=== PATIENT | female | born 1985 | race Caucasian/White ===

== ENCOUNTER 2022-09-13 12:34 | Outpatient (CLI) | payer OTHER, SELFPAY ==
[2022-09-13 12:59] LABS: Hematocrit 37.7 % (37.0-47.0); Hemoglobin 12.1 g/dL (12.0-15.0); Mean Corpuscular HGB Conc 32.1 g/dl (32-36); Mean Corpuscular Volume 90.4 fl (80-100); Mean Platelet Volume 9.2 fl (7.4-10.4); Platelet Count Result 238 k/mm3 (150-375); Red Blood Count 4.17 M/mm3 (4.2-5.4); Red Cell Distribution Width 14.1 % (11.5-14.5)
== END 2022-09-13 12:35 | disposition home or self-care (01) ==
LOC: ANHSURGERY 12:39
PROVIDERS: Obstetrics & Gynecology; PCP Internal Medicine; Visit Provider Urology
DX: N92.6 Irregular menstruation, unspecified (principal); Z01.818 Encounter for other preprocedural examination
CPT/HCPCS: 36415; 85027; 86850; 86900; 86901

== ENCOUNTER 2022-09-19 00:46 | Day surgery (SDC) | payer OTHER, SELFPAY ==
[2022-09-09 11:10] VITALS: BMI 25.8
--- NOTE | 2022-09-09 11:14 | PC.NURSE ---
Report to the Outpatient Waiting Room, entrance under the green pavilion located off [facility], at time 9:30 on date 09/19/22. Planned Procedure Time: 11:30. Time changes happen often and if your time is changed the preop area will call you the afternoon before. - You and your visitor will be asked to self-screen and do not enter if you have any COVID symptoms. - A mask is optional within the hospital at this time. Patients may have clear liquids (water, carbonated beverages, clear teas, apple juice) until 3 hours prior to surgery (8:30) with a maximum of 20 ounces. - No food from midnight until time of surgery Take the following medications with a SIP of water the morning of surgery: AMOXICILLIN, BUSPIRONE, FLUOXETINE DO NOT STOP ANY OF YOUR OTHER PRESCRIPTION MEDICATIONS PRIOR TO SURGERY EXCEPT THE FOLLOWING Medications to discontinue per physician: VITAMINS/SUPPLEMENTS Date to take last dose: 09/15/22 Please no make-up, nail macedonian, hairspray, perfume, deodorant, or body powder the day of surgery. No jewelry (including any body piercings) or valuables the day of surgery, leave them at home. Please take a shower or bath the night before, or the morning of, surgery with an antibacterial soap. Wear comfortable, loose fitting clothing. - Jewelry must be removed prior to entering the operating room. Rings and piercings that are not removed may be cut off. - The hospital will not accept responsibility for valuables. - Please leave all valuables, including medications, at home the day of surgery. If you are going home after surgery, a licensed customer service driver must drive you home. - NO public transportation without another adult if you receive anesthesia. - We recommend that an adult stay with you for 24 hours following discharge. - We also recommend that you do not drive, make important decision, drink alcoholic beverages, or take any drugs that were not prescribed by your health care provider for at least 24 hours after your discharge time. Follow any additional instructions given to you from your surgeon. If you or anyone in your household have experienced Covid symptoms in the past week, please notify your surgeon or the nurse liaison at the phone number below for possible testing. Telephone instructions given to PT - AMENA MURILLO and asked if any additional questions and then verbalized understanding. Patient advised to call surgeon office or pre surgery nurse liaison [phone] if any additional questions.
--- NOTE | 2022-09-18 16:32 | PM.IMHP ---
H&P: HPI History of Present Illness Date/Time: 09/18/22 16:32 Chief Complaint: ROMERO Narrative: 37 yo with ROMERO. Sling procedure at the time of her Hyst Review of Systems Review of Systems: All systems reviewed & are unremarkable except as noted in HPI and below PMFSH Past Medical History Medical History Acne Anxiety and depression Toxic shock syndrome Vaginal delivery 03/06/09 12/14/10 PTL/PTD/PPROM 9 days in NICU 03/31/15 [facility] 03/31/15 Surgical History Surgical History History of cholecystectomy (~2015) History of dilation and curettage (02/23/17) menometrorrhagia, dysmenorrhea, enlarged uterus, possible adenomyosis History of endometrial ablation (03/09/17) History of tonsillectomy (~2002) Family History Family History Mother Family history of mental disorder Hypertension Family history of hypothyroidism Family history of gastrointestinal disorder Father Family history of heart disease in male family member before age 55 Acute myocardial infarction Family history of diabetes mellitus in first degree relative Sibling Family history of diabetes mellitus in first degree relative Other Family history of allergic disorder Social History Social History Smoking status: Never smoker Alcohol intake: current Drinks per week: 6 Substance use: never Substance use type: does not use Living arrangements: with family Additional living arrangements comments: 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 Gender identity (if verbalized by the patient): Female Sexual Orientation (if Verbalized by the Patient): Straight or Heterosexual Spiritual care concerns: No Meds Home Medications and Allergies Home Medications Medication Instructions Recorded Confirmed Type amoxicillin 500 mg capsule 500 mg PO Q12H 05/04/22 09/09/22 History buspirone 10 mg tablet 10 mg PO BID 05/04/22 09/09/22 History fluoxetine 40 mg capsule 40 mg PO DAILY 05/04/22 09/09/22 History multivitamin with minerals 1 tablet PO DAILY 09/09/22 09/09/22 History (Hair,Skin and Nails tablet) Allergies Allergy/AdvReac Type Severity Reaction Status Date / Time No Known Allergies Allergy Mild Verified 09/09/22 11:10 Exam Narrative: + urethral mobility Assessment and Plan Assessment and plan (1) ROMERO (stress urinary incontinence, female): Code(s): N39.3 - Stress incontinence (female) (male) Status: Acute Assessment and Plan: urethral slin
[2022-09-19] VITALS (11 sets, daily range): BP systolic 105–127; BP diastolic 63–89; PULSE 61–107; RESP 12–16; TEMP 36.1–37.3; O2SAT 95–100
--- NOTE | 2022-09-19 07:16 | WPDHPUPDATE1 ---
History and Physical Update Update Date/Time: 09/19/22 07:16 History and Physical has been reviewed, including an updated exam of the patient. There are NO changes in the patient's condition. Risks, benefits, and alternatives have been discussed and questions answered. Patient agrees to proceed with procedure.
--- NOTE | 2022-09-19 07:47 | PM.IMHP ---
H&P: HPI History of Present Illness Date/Time: 09/19/22 07:47 37-year-old female presents with complaints of irregular heavy vaginal bleeding. She has had an endometrial ablation years ago and this had worked well for her, though she is having increasing bleeding cramping discomfort and desires definitive treatment for this. She has taken Prometrium daily in the interim and has worked reasonably well for her. Also relates significant stress incontinence which Dr. Paez will be correcting with sling procedure after her hysterectomy. Chief Complaint: irregular vaginal bleeding Review of Systems Review of Systems: All systems reviewed & are unremarkable except as noted in HPI and below PMFSH Past Medical History Medical History Acne Anxiety and depression Toxic shock syndrome Vaginal delivery 03/06/09 12/14/10 PTL/PTD/PPROM 9 days in NICU 03/31/15 [facility] 03/31/15 Surgical History Surgical History History of cholecystectomy (~2015) History of dilation and curettage (02/23/17) menometrorrhagia, dysmenorrhea, enlarged uterus, possible adenomyosis History of endometrial ablation (03/09/17) History of tonsillectomy (~2002) Family History Family History Mother Family history of mental disorder Hypertension Family history of hypothyroidism Family history of gastrointestinal disorder Father Family history of heart disease in male family member before age 55 Acute myocardial infarction Family history of diabetes mellitus in first degree relative Sibling Family history of diabetes mellitus in first degree relative Other Family history of allergic disorder Social History Social History Smoking status: Never smoker Alcohol intake: current Drinks per week: 6 Substance use: never Substance use type: does not use Living arrangements: with family Additional living arrangements comments: 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 Gender identity (if verbalized by the patient): Female Sexual Orientation (if Verbalized by the Patient): Straight or Heterosexual Spiritual care concerns: No Meds Home Medications and Allergies Home Medications Medication Instructions Recorded Confirmed Type amoxicillin 500 mg capsule 500 mg PO Q12H 05/04/22 09/09/22 History buspirone 10 mg tablet 10 mg PO BID 05/04/22 09/09/22 History fluoxetine 40 mg capsule 40 mg PO DAILY 05/04/22 09/09/22 History multivitamin with minerals 1 tablet PO DAILY 09/09/22 09/09/22 History (Hair,Skin and Nails tablet) Allergies Allergy/AdvReac Type Severity Reaction Status Date / Time No Known Allergies Allergy Mild Verified 09/09/22 11:10 Exam Const: General: cooperative, healthy appearing and comfortable Resp: Effort & Inspection: normal respiratory effort Auscultation: clear to auscultation bilaterally Cardio: Rate: regular rate Rhythm: regular rhythm GI: Inspection: normal to inspection Auscultation: normal bowel sounds : External Female Exam: normal external appearance Speculum Exam - Vagina: normal appearance of the vagina Speculum Exam - Cervix: normal appearance of the cervix Bimanual exam- vagina & uterus: enlarged ( 8-10 week size) Bimanual Exam- Adnexa, other: normal adnexae Assessment and Plan Assessment and plan (1) Menometrorrhagia: Code(s): N92.1 - Excessive and frequent menstruation with irregular cycle Status: Acute (2) Dysmenorrhea: Code(s): N94.6 - Dysmenorrhea, unspecified Status: Acute (3) History of endometrial ablation: Code(s): Z98.890 - Other specified postprocedural states Status: Acute (4) ROMERO (stress urinary incontinence, female): Code(s): N39.3 - Str
[2022-09-19] MEDS: ACETAMINOPHEN 500 MG TABLET 1000 MG PO (10:10)
[2022-09-19] MEDS: LACTATED RINGERS 1,000 ML 30 ML IV CONT ×2 (10:10→13:46)
[2022-09-19] MEDS: KETOROLAC 15 MG/ML VIAL (*BKC) IV PUSH (11:00)
--- NOTE | 2022-09-19 11:10 | WPDANESEPPF ---
Anes - Initial Pre Proc Eval Procedure: Operation Date: 09/19/22 11:30 Proposed Procedures p Urethral Sling, - Kapil Paez MD s Robotic Assisted Total Laparoscopic Hysterectomy with Bilateral Salpingectomy - Luis Ocampo MD Date/Time: 09/19/22 11:10 Surgeon: Kapil Paez MD Pre Op Diagnosis: stress incont, irr. periods, failed ablation Patient Data Age: 37 Gender: F Height: 1.7 m Weight: 76.6 kg Last Vital Signs Temp 97.9 F 09/19/22 10:29 Pulse 61 09/19/22 10:29 Resp 16 09/19/22 10:29 BP 120/78 09/19/22 10:29 Pulse Ox 100 09/19/22 10:29 O2 Del Method Room Air 09/19/22 10:29 Allergies Allergy/AdvReac Type Severity Reaction Status Date / Time No Known Allergies Allergy Mild Verified 09/19/22 09:47 Home Medications Medication Instructions Recorded Confirmed Type amoxicillin 500 mg capsule 500 mg PO Q12H 05/04/22 09/19/22 History buspirone 10 mg tablet 10 mg PO BID 05/04/22 09/19/22 History fluoxetine 40 mg capsule 40 mg PO DAILY 05/04/22 09/19/22 History multivitamin with minerals 1 tablet PO DAILY 09/09/22 09/19/22 History (Hair,Skin and Nails tablet) Patient hx anesthesia problems: none Family hx anesthesia problems: none Results Review: All pre-operative results and documents have been reviewed as part of the pre-operative evaluation. [facility] Past Medical History Medical History Acne Anxiety and depression Toxic shock syndrome Vaginal delivery 03/06/09 12/14/10 PTL/PTD/PPROM 9 days in NICU 03/31/15 [facility] 03/31/15 Surgical History Surgical History History of cholecystectomy (~2015) History of dilation and curettage (02/23/17) menometrorrhagia, dysmenorrhea, enlarged uterus, possible adenomyosis History of endometrial ablation (03/09/17) History of tonsillectomy (~2002) Family History Family History Mother Family history of mental disorder Hypertension Family history of hypothyroidism Family history of gastrointestinal disorder Father Family history of heart disease in male family member before age 55 Acute myocardial infarction Family history of diabetes mellitus in first degree relative Sibling Family history of diabetes mellitus in first degree relative Other Family history of allergic disorder Social History Social History Smoking status: Never smoker Alcohol intake: current Drinks per week: 6 Substance use: never Substance use type: does not use Living arrangements: with family Additional living arrangements comments: 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 Gender identity (if verbalized by the patient): Female Sexual Orientation (if Verbalized by the Patient): Straight or Heterosexual Spiritual care concerns: No Anes - Eval Final PreProcedure Day of Procedure 09/19/22 11:10 Patient weight: normal Heart: regular rate and rhythm Lungs: clear to auscultation Airway: Mallampati scale class II Neurological: alert and oriented Last oral intake: >/= 8 hours ASA classification: II Emergent: no Anesthetic plan: proceed Anesthesia type and monitoring: general ETT and standard monitoring Results Review: All pre-operative results and documents have been reviewed as part of the pre-operative evaluation. Informed Consent: The patient's anesthetic plan and its attendant risks and benefits were discussed with the patient/family/POA. Questions were solicited and answers provided to the satisfaction of the patient/family/POA.
--- NOTE | 2022-09-19 11:35 | WPDHPUPDATE1 ---
History and Physical Update Update Date/Time: 09/19/22 11:35 History and Physical has been reviewed, including an updated exam of the patient. There are NO changes in the patient's condition. Risks, benefits, and alternatives have been discussed and questions answered. Patient agrees to proceed with procedure.
[2022-09-19] MEDS: ceFAZolin 2 GM/D5W 50 ML 2 GM/50 ML BAG IVPB (11:53)
--- NOTE | 2022-09-19 13:19 | P.OP_ITS ---
Procedure Note - Detailed Date of Procedure 09/19/22 Pre-op Diagnosis 1. Menometrorrhagia 2. Dysmenorrhea 3. Prior/failed endometrial ablation 4. Stress urinary incontinence with urethral hypermobility Post-op Diagnosis Same Procedure Performed 1. Robotic assisted total laparoscopic hysterectomy with bilateral salpingectomy Surgeon Luis Ocampo MD Anesthesia General Findings Mildly enlarged globular uterus. Tubes and ovaries without abnormality. Description of Procedure Patient prepped and draped usual manner for this procedure. Cervical instruments were placed for uterine mobility throughout the case. Attention was then placed to the abdomen with trocar sites marked and placed under direct visualization. Findings were noted as above and surgeon moved to the console. Mesial salpinx bilaterally cauterized and cut and tubes removed without dif ficulty. Utero-ovarian ligaments were cauterized and cut and the round ligament was cauterized and cut and anterior and posterior leaf the broad ligament was incised to skeletonize the uterine vessels. These were then cauterized and cut bilaterally. Once this was undertaken the anterior colpotomy incision was made this was carried circumferentially around the cervix to separate from the vagina. Uterus was delivered into the vagina. Cuff was then closed using V lock suture from the right angle to midline and left angle midline with good approximation hemostasis noted. Irrigation was undertaken there was no bleeding. Osiel was placed empirically on the vaginal cuff. Gas was allowed to escape incisions approximated using 4-0 Monocryl after the trocars removed. At this point Dr. Paez reposition patient and began his portion of the procedure. Estimated Blood Loss 50 Drains No Packing No Pathology Yes Complications No immediate complications Condition Stable Disposition PACU [facility] Billing Surgery - Charge Forward: Surgery Billing
[2022-09-19] MEDS: BUPIVACAINE/EPINEPHRINE 0.25% 50 ML VIAL 20 ML INFILTRATE (13:24)
--- NOTE | 2022-09-19 13:49 | P.OP_ITS ---
Procedure Note - Detailed Date of Procedure 09/19/22 Pre-op Diagnosis Stress incontinence Post-op Diagnosis Same Procedure Performed mid urethral sling cystoscopy Surgeon Kapil Paez MD Anesthesia General Indications This is a female with confirmed stress urinary incontinence. She desires surgical correction. She understands the risks of bleeding, infection, injury to the urinary tract, vaginal mesh extrusion, urinary tract mesh erosion, obstructive voiding requiring a secondary procedure, hip and leg pain, dyspareunia, inability to improve overactive bladder symptoms. She agrees to proceed. Will do this in conjunction with a hysterectomy for dysfunctional uterine bleeding Description of Procedure I entered the room following her hysterectomy. A time-out performed. I re- prepped the patient. I marked out the site of the inner thigh incisions. I anesthetized the skin and made those incisions. I anesthetized the anterior vaginal wall over the mid urethra. I made a 1 cm incision. I dissected out laterally taking great care not to injure the refilled vaginal wall. I passed the helical trocars. First on the left. Then on the right. I did this from the thigh incision towards the vaginal incision. The sling was connected to the trocars and brought out through the thigh incision. I tensioned the sling appropriately. I cut and the plastic sheaths. I then closed the incision with 2 0 Vicryl. On cystoscopy there is no tumors or surgical artifact. Both ureters were seen to excrete clear yellow urine. There was no surgical artifact in the urethra. I cut the excess sling material. Close incisions with glue. She was awakened and transferred to the PACU in stable condition. Implants Urethral sling Estimated Blood Loss 40 Drains No Packing No Pathology None sent Complications No immediate complications Condition Stable Disposition PACU
[2022-09-19] MEDS: fentaNYL CITRATE INJ (*CRX) 100 MCG/2 ML VIAL 25 MCG IV PUSH ×2 (14:16→14:27)
[2022-09-19] MEDS: DEXTROSE 5%/0.45% SOD CHL 1,000 ML 125 ML IV CONT (16:21)
[2022-09-19] MEDS: KETOROLAC 30 MG/ML VIAL (*BKC) IV PUSH (16:21)
[2022-09-19] MEDS: ONDANSETRON INJ 4 MG/2 ML VIAL IV PUSH (16:21)
[2022-09-19] MEDS: MORPHINE SULFATE (*CRX) 4 MG/ML INJ IV PUSH (16:22)
[2022-09-19] MEDS: busPIRone HCL 10 MG TABLET PO (17:05)
[2022-09-19] MEDS: AMOXICILLIN 500 MG CAPSULE PO (20:36)
[2022-09-19] MEDS: HYDROcodone/acetaminophen (*CRX) 5-325 MG TABLET 1 TAB PO ×2 (20:36→23:15)
[2022-09-19] MEDS: SIMETHICONE 80 MG TAB.CHEW PO ×2 (20:36→23:14)
[2022-09-19] MEDS: IBUPROFEN 600 MG TABLET PO (23:14)
[2022-09-20] MEDS: HYDROcodone/acetaminophen (*CRX) 5-325 MG TABLET 1 TAB PO ×2 (03:44→08:08)
[2022-09-20] MEDS: SIMETHICONE 80 MG TAB.CHEW PO ×2 (03:44→08:08)
[2022-09-20 03:45] VITALS: BP 113/76; PULSE 66; RESP 16; TEMP 37; O2SAT 98
[2022-09-20 05:07] LABS: Basophils Percent Auto 0.4 % (0.2-1.2); Eosinophils Absolute Auto 0.1 K/mm3 (0-0.3); Eosinophils Percent Auto 0.5 % (0-4.4); Hematocrit 34.3 % (37.0-47.0); Hemoglobin 11.3 g/dL (12.0-15.0); Immature Granulocyte Absolute 0.03 K/mm3 (0.00-0.031); Immature Granulocyte Percent A 0.3 % (0-0.5); Lymphocytes Absolute Auto 2.63 K/mm3 (0.9-3.2); Lymphocytes Percent Auto 23.7 % (18.3-44.2); Mean Corpuscular HGB Conc 32.9 g/dl (32-36); Mean Corpuscular Volume 87.9 fl (80-100); Mean Platelet Volume 9.7 fl (7.4-10.4); Monocytes Absolute Auto 0.8 K/mm3 (0.1-0.6); Monocytes Percent Auto 7.4 % (2.6-8.5); Neutrophils Absolute Auto 7.5 K/mm3 (1.3-6.7); Neutrophils Percent Auto 67.7 % (45.5-73.1); Platelet Count Result 193 k/mm3 (150-375); Red Cell Distribution Width 14.2 % (11.5-14.5); White Blood Count 11.1 K/mm3 (4.5-10.0)
[2022-09-20] MEDS: IBUPROFEN 600 MG TABLET PO (08:08)
[2022-09-20] MEDS: FLUoxetine HCL 20 MG CAPSULE 40 MG PO (08:09)
[2022-09-20] MEDS: THERAPEUTIC MULTIVITAMINS/MINERALS TAB (*BKC) 1 TABLET PO (08:09)
[2022-09-20] MEDS: busPIRone HCL 10 MG TABLET PO (08:09)
[2022-09-20] MEDS: AMOXICILLIN 500 MG CAPSULE PO (08:09)
[2022-09-20 08:50] VITALS: BP 105/74; PULSE 65; RESP 16; TEMP 36.8; O2SAT 99
[2022-09-20 09:00] VITALS: PULSE 66; RESP 16; O2SAT 98
--- NOTE | 2022-09-20 10:12 | WPDANESPN ---
Anes - Prog Note Post-Op Date/Time: 09/20/22 10:12 Cardiovascular status: normal Respiratory status: normal Airway patency: baseline Mental status: baseline Post-Op hydration status: normal Vital Signs: Last Vital Signs Temp 37.0 C 09/20/22 03:45 Pulse 66 09/20/22 09:00 Resp 16 09/20/22 09:00 BP 113/76 09/20/22 03:45 Pulse Ox 98 09/20/22 09:00 O2 Del Method Room Air 09/20/22 09:00 O2 Flow Rate 8 09/19/22 14:10 Pain Score (VAS): 06/10 I/O: Intake & Output 09/19/22 09/20/22 09/20/22 23:59 07:59 15:59 Intake Total 500 Output Total 700 300 450 Balance -200 -300 -450 Laboratory Tests 09/20/22 03:49 09/20/22 03:49 WBC 11.1 H RBC 3.90 L Hgb 11.3 L Hct 34.3 L MCV 87.9 MCH 29.0 MCHC 32.9 RDW 14.2 Plt Count 193 MPV 9.7 Immature Gran % (Auto) 0.3 Neut % (Auto) 67.7 Lymph % (Auto) 23.7 [place] % (Auto) 7.4 Eos % (Auto) 0.5 Baso % (Auto) 0.4 Lymph # (Auto) 2.63 [place] # (Auto) 0.8 H Eos # (Auto) 0.1 Baso # (Auto) 0.0 Abs Immat Gran (auto) 0.03 Absolute Neuts (auto) 7.5 H Absolute Nucleated RBC 0.0 Nucleated RBC % 0.0 Post-procedural complaints: none Patient Feedback: Patient satisfied with anesthetic care.
[2022-09-20] MEDS: HYDROcodone/acetaminophen (*CRX) 10-325 MG TABLET 1 TAB PO (11:15)
== END 2022-09-20 11:38 | disposition home or self-care (01) ==
LOC: ANHSURGERY 09:28 → ANHOB2 09-20 10:49
PROVIDERS: Obstetrics & Gynecology; PCP Internal Medicine; Visit Provider Urology
PROC: (CPT 57288; principal; 2022-09-19 11:30)
PROC: (CPT 58554; 2022-09-19 11:30)
DX: N39.3 Stress incontinence (female) (male) (principal); N92.1 Excessive and frequent menstruation with irregular cycle
CPT/HCPCS: 58554; 57288; S2900; 36415; 85025; 85027; 86850; 86900; 86901; 88307; A9270; C1771; G0378; G0379; J0690; J1100; J1170; J1885; J2250; J2270; J2405; J3010; J7120

== ENCOUNTER 2022-11-25 15:42 | Outpatient (CLI) | payer OTHER, SELFPAY ==
--- NOTE | ~2022-11-25 | XR_ITS ---
XR chest 2V DATE: 11/25/2022 16:02 INDICATION: Upper left-sided chest pain and shortness of breath for 4 days TECHNIQUE: PA and lateral views COMPARISON: 10/13/2017 two-view chest FINDINGS: Normal heart size. No hilar or mediastinal enlargement. No pulmonary infiltrate or consolid ation, pleural effusion or pulmonary vascular congestion or pneumothorax is detected. Surgical clips overlie the upper abdomen anteriorly on the lateral view, likely due to cholecystectom y. Included skeletal structures are unremarkable other than thoracic and lumbar scoliosis. IMPRESSION: No active cardiopulmonary disease Reviewed, dictated and finalized at location B.
--- NOTE | ~2022-11-25 | CT_ITS ---
EXAMINATION: CTA chest PE protocol DATE: 11/25/2022 17:19 CDT INDICATION: Left-sided chest pain. Elevated d-dimer. TECHNIQUE: Computed tomographic angiography (CTA) of the chest was performed with 100 mL Omnipaque-35 0 intravenous contrast. The dose-length product was 273.30 mGy-cm. Maximum intensity projection 3D-re constructions of the aorta and other arteries were constructed by the technologist on a separate work station. Automated exposure control and iterative reconstruction technique were employed. COMPARISON: Chest x-ray dated 11/25/2022. FINDINGS: Study is technically adequate without evidence for pulmonary embolism. No significant pleur al or pericardial effusion. Heart size normal. No thoracic lymphadenopathy. Upper abdomen is unremark able. No focal airspace consolidation. No suspicious pulmonary nodules or masses. No endobronchial le sions. No pneumothorax. No acute osseous abnormality. IMPRESSION: 1. No acute cardiopulmonary disease. Reviewed, dictated and finalized at location A.
[2022-11-25 15:58] LABS: Basophils Absolute Auto 0.05 K/mm3 (0.00-0.10); Basophils Percent Auto 0.7 % (0.0-1.0); Eosinophils Absolute Auto 0.26 K/mm3 (0.02-0.50); Eosinophils Percent Auto 3.5 % (1.0-6.0); Hematocrit 38.7 % (35.0-49.0); Hemoglobin 12.8 g/dL (12.0-15.0); Immature Granulocyte Absolute 0.01 K/mm3 (0.00-0.00); Immature Granulocyte Percent A 0.1 % (0.0-0.0); Lymphocytes Absolute Auto 2.44 K/mm3 (1.10-4.50); Lymphocytes Percent Auto 32.4 % (18.0-42.0); Mean Corpuscular HGB Conc 33.1 g/dL (32.0-36.0); Mean Corpuscular Hemoglobin 29.6 pg (27.0-31.0); Mean Corpuscular Volume 89.6 fL (78.0-102.0); Mean Platelet Volume 8.9 fl (9.2-11.8); Monocytes Absolute Auto 0.46 K/mm3 (0.10-0.90); Monocytes Percent Auto 6.1 % (2.0-11.0); Neutrophils Absolute Auto 4.3 K/mm3 (1.7-7.2); Neutrophils Percent Auto 57.2 % (50.0-70.0); Platelet Count Result 302 K/mm3 (150-420); Red Blood Count 4.32 M/mm3 (4.20-5.40); Red Cell Distribution Width 13.5 % (11.6-14.4); White Blood Count 7.5 K/mm3 (4.8-10.8)
[2022-11-25 16:17] LABS: D Dimer 0.93 mg/L (0.19-0.50)
[2022-11-25 16:24] LABS: Alanine Aminotransferase 24 U/L (14-59); Albumin Level 3.7 g/dL (3.4-5.0); Alkaline Phosphatase 69 U/L (46-116); Anion Gap 5 mmol/L (8-16); Aspartate Amino Transferase 11 U/L (15-37); Bilirubin,Total 0.6 mg/dL (0.00-1.00); Blood Urea Nitrogen 17 mg/dL (7-18); Calcium 8.8 mg/dL (8.5-10.1); Carbon Dioxide 30 mmol/L (21-32); Chloride 106 mmol/L (98-108); Creatine Kinase 129 U/L (26-192); Estimated Glomerular Filt Rate > 60; Glucose 92 mg/dL (70-99); Osmolality Calculated 293 mOsm/kg (285-295); Potassium 3.7 mmol/L (3.5-5.1); Sodium 141 mmol/L (136-145); Total Protein 6.6 g/dL (6.4-8.2)
[2022-11-25 16:32] LABS: CRP < 0.5 mg/dL (0.0-0.9)
== END 2022-11-25 15:43 | disposition home or self-care (01) ==
PROVIDERS: PCP Internal Medicine; Visit Provider Nurse Practitioner Family
DX: R06.02 Shortness of breath (principal); R07.9 Chest pain, unspecified
CPT/HCPCS: 36415; 71046; 71275; 80053; 82550; 82553; 84484; 85025; 85380; 86140; Q9967

== ENCOUNTER 2023-03-23 02:41 | Emergency (ER) | payer OTHER, SELFPAY ==
[2023-03-23] VITALS (44 sets, daily range): BP systolic 85–116; BP diastolic 49–80; PULSE 73–103; RESP 12–20; TEMP 36.3–36.6; O2SAT 96–100
--- NOTE | ~2023-03-23 | XR_ITS ---
EXAMINATION: XR chest 1V portable INDICATION: Overdose, COVID 19 positive TECHNIQUE: Portable AP chest at 0658 hours COMPARISON: 11/25/2022 FINDINGS: The lungs are free of acute opacities. No pleural effusion or pneumothorax. The cardiomedia stinal silhouette is normal. IMPRESSION: 1. No acute cardiopulmonary abnormality. Reviewed, dictated and finalized at location F. 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
--- NOTE | ~2023-03-23 | CT_ITS ---
EXAMINATION: CT brain wo con INDICATION: Overdose COMPARISON: None TECHNIQUE: Standard unenhanced head CT. The dose-length product (DLP) was 681.00 mGy-cm. The mA was a djusted according to patient size. Iterative reconstruction technique was employed. FINDINGS: No intracranial hemorrhage, acute infarction, or abnormal mass lesion. The ventricles are n ormal. No abnormal mass effect or midline shift. The grubbs-white matter differentiation is normal. The basal cisterns are patent. The orbits are normal. There is mild mucosal thickening of the paranasal sinuses. IMPRESSION: 1. No acute intracranial abnormality. Reviewed, dictated and finalized at location F. COLLECTOR
--- NOTE | 2023-03-23 02:52 | ED.PSYCH ---
HPI - Psych General Chief Complaint: Overdose <Tra Fields MD - Last Filed: 03/23/23 07:07> Stated Complaint: ingestion <Tra Fields MD - Last Filed: 03/23/23 07:07> Time Seen by Provider: 03/23/23 02:52 <Tra Fields MD - Last Filed: 03/23/23 07:07> Source: patient <Tra Fields MD - Last Filed: 03/23/23 07:07> Mode of arrival: ambulatory <Tra Fields MD - Last Filed: 03/23/23 07:07> Limitations: no limitations <Tra Fields MD - Last Filed: 03/23/23 07:07> History of Present Illness HPI Narrative: 37 female history of depression got into an argument with her and subsequently ingested handful of pain medications / [place] at around 2:00 a.m. She ingested and unknown amount of alcohol She called her mother who brought her to the ER. The patient is tearful. She is drowsy. She denies any other complaints. no prior history of suicidal attempts. No history of drug or alcohol use. <Tra Fields MD - Last Filed: 03/23/23 07:07> MD complaint: feels depressed <Tra Fields MD - Last Filed: 03/23/23 07:07> Onset (ago): hour(s) ( 1 hour ago) <Tra Fields MD - Last Filed: 03/23/23 07:07> History of same: No <Tra Fields MD - Last Filed: 03/23/23 07:07> Related Data Home Medications: Home Medications Medication Instructions Recorded Confirmed buspirone 10 mg tablet 10 mg PO BID 05/04/22 03/23/23 fluoxetine 40 mg capsule (Prozac) 40 mg PO DAILY 05/04/22 03/23/23 multivitamin with minerals 1 tablet PO DAILY 09/09/22 03/23/23 (Hair,Skin and Nails tablet) <Tra Fields MD - Last Filed: 03/23/23 07:07> Allergies/Adverse Reactions: Allergies Allergy/AdvReac Type Severity Reaction Status Date / Time No Known Allergies Allergy Mild Verified 11/04/22 09:30 <Tra Fields MD - Last Filed: 03/23/23 07:07> Review of Systems Review of Systems: The patient is drowsy and is not able to answer questions. <Tra Fields MD - Last Filed: 03/23/23 07:07> [facility] Past Medical History Medical History: Medical History Acne Anxiety and depression Toxic shock syndrome Vaginal delivery 03/06/09 12/14/10 PTL/PTD/PPROM 9 days in NICU 03/31/15 [facility] 03/31/15 <Tra Fields MD - Last Filed: 03/23/23 07:07> Surgical History Surgical History: Surgical History History of bladder suspension procedure (09/19/22) mid urethral sling/ cystoscopy with Dr. Paez History of cholecystectomy (~2015) History of dilation and curettage (02/23/17) menometrorrhagia, dysmenorrhea, enlarged uterus, possible adenomyosis History of endometrial ablation (03/09/17) History of robot-assisted laparoscopic hysterectomy (09/19/22) Robotic assisted total laparoscopic hysterectomy with bilateral salpingectomy History of tonsillectomy (~2002) <Tra Fields MD - Last Filed: 03/23/23 07:07> Family History Family History: Family History Mother Family history of mental disorder Hypertension Family history of hypothyroidism Family history of gastrointestinal disorder Father Family history of heart disease in male family member before age 55 Acute myocardial infarction Family history of diabetes mellitus in first degree relative Sibling Family history of diabetes mellitus in first degree relative Other Family history of allergic disorder <Tra Fields MD - Last Filed: 03/23/23 07:07> Social History Social History: Social History Smoking status: Never smoker Alcohol intake: current Drinks per week: 6 Substance use: never Substance use type: does not use Lack of Transportation: No Lack of Food: Never Tr
--- NOTE | 2023-03-23 03:00 | ECG_ITS ---
Measurements Intervals [place] Rate: 75 P: 65 MD: 159 QRS: 61 QRSD: 102 T: 42 QT: 401 QTc: 451 Interpretive Statements SINUS RHYTHM NONSPECIFIC ST-T WAVE ABNORMALITY- ANT/INF LEADS BORDERLINE ECG NO PREVIOUS ECG AVAILABLE FOR COMPARISON Electronically Signed On 03-23-2023 8:53:32 [employer] MANAGER by Lalit Frederick D.O.
--- NOTE | 2023-03-23 03:05 | PC.NURSE ---
RN phoned poison control to notify of need for them to consult on patient case. Dr. Fields also spoke with poison control regarding patient.
[2023-03-23 03:28] LABS: Base Excess ABG -3.8 mmol/L (0-2); HCO3 ABG 25.3 mmol/L (23-29); Oxygen Content ABG 15.2 %vol (16.0-22.0); Oxygen Saturation ABG 81.7 % (95-97); Oxyhemoglobin 81.3 % (94-100); PCO2 ABG 65.4 mmHg (35-45); PO2 ABG 54.8 mmHg (80-90); Total Hemoglobin 13.3 g/dL (12.0-18.0); pH ABG 7.21 (7.35-7.45)
[2023-03-23 03:31] LABS: Device ROOM AIR; Modified Allen's Test Pass; Site Drawn RIGHT RADIAL
[2023-03-23 03:32] LABS: Basophils Absolute Auto 0.05 K/mm3 (0.00-0.10); Basophils Percent Auto 0.8 % (0.0-1.0); Eosinophils Absolute Auto 0.25 K/mm3 (0.02-0.50); Eosinophils Percent Auto 3.8 % (1.0-6.0); Hematocrit 38.2 % (35.0-49.0); Hemoglobin 12.5 g/dL (12.0-15.0); Immature Granulocyte Absolute 0.01 K/mm3 (0.00-0.00); Immature Granulocyte Percent A 0.2 % (0.0-0.0); Lymphocytes Absolute Auto 3.39 K/mm3 (1.10-4.50); Lymphocytes Percent Auto 51.4 % (18.0-42.0); Mean Corpuscular HGB Conc 32.7 g/dL (32.0-36.0); Mean Corpuscular Hemoglobin 29.8 pg (27.0-31.0); Mean Corpuscular Volume 91.2 fL (78.0-102.0); Monocytes Absolute Auto 0.43 K/mm3 (0.10-0.90); Monocytes Percent Auto 6.5 % (2.0-11.0); Neutrophils Absolute Auto 2.5 K/mm3 (1.7-7.2); Neutrophils Percent Auto 37.3 % (50.0-70.0); Platelet Count Result 218 K/mm3 (150-420); Red Blood Count 4.19 M/mm3 (4.20-5.40); Red Cell Distribution Width 14.1 % (11.6-14.4); White Blood Count 6.6 K/mm3 (4.8-10.8)
[2023-03-23] MEDS: NALOXONE HCL INJ 2 MG/2 ML AMP IV PUSH (03:44)
[2023-03-23] MEDS: LACTATED RINGERS 1,000 ML 999 ML IV CONT (03:44)
--- NOTE | 2023-03-23 03:45 | PC.NURSE ---
Edelmira Clements was notified @ [phone] to come in and put Pt on a BIPAP MACHINE.
[2023-03-23 03:47] LABS: Prothrombin Time 10.5 Seconds (9.50-12.10)
[2023-03-23 03:52] LABS: Lactic Acid Reflex 1.6 mmol/L (0.4-2.0)
[2023-03-23] MEDS: ONDANSETRON INJ 4 MG/2 ML VIAL IV PUSH (03:54)
[2023-03-23 04:00] LABS: Alanine Aminotransferase 51 U/L (14-59); Albumin Level 3.5 g/dL (3.4-5.0); Alkaline Phosphatase 68 U/L (46-116); Anion Gap 7 mmol/L (8-16); Aspartate Amino Transferase 46 U/L (15-37); Bilirubin,Total 0.6 mg/dL (0.00-1.00); Blood Urea Nitrogen 9 mg/dL (7-18); Calcium 7.9 mg/dL (8.5-10.1); Carbon Dioxide 32 mmol/L (21-32); Chloride 105 mmol/L (98-108); Estimated CRCL calculation 92 ml/min; Estimated Glomerular Filt Rate > 60; Glucose 138 mg/dL (70-99); Osmolality Calculated 298 mOsm/kg (285-295); Potassium 3.2 mmol/L (3.5-5.1); Sodium 144 mmol/L (136-145); Total Protein 6.5 g/dL (6.4-8.2)
[2023-03-23 04:01] LABS: Acetaminophen 89 ug/mL (10-30); Salicylate 0.7 mg/dL (2.8-20.0)
[2023-03-23 04:02] LABS: Ethanol 198 mg/dL (0-6)
[2023-03-23 04:10] LABS: Influenza A QL RT-PCR Negative (Negative); Influenza B QL RT-PCR Negative (Negative); RSV RNA, RT-PCR Negative (Negative); SARS-CoV-2 RNA PCR Positive (Negative)
[2023-03-23 06:09] LABS: Acetaminophen 60 ug/mL (10-30)
[2023-03-23 06:24] LABS: HCO3 VBG 25.8 mEq/l (24.0-30.0); PO2 VBG 55.4 mmHg (35.0-45.0); pH VBG 7.31 (7.33-7.43)
[2023-03-23 06:25] LABS: Device ROOM AIR
--- NOTE | 2023-03-23 06:35 | PC.NURSE ---
RN phoned poison control, spoke with Cora who is requesting repeat liver fx tests repeated with 6 AM acetaminophen lab draw. no further recommendations. call with lab update once resulted.
[2023-03-23 06:48] LABS: Alanine Aminotransferase 130 U/L (14-59); Albumin Level 3.2 g/dL (3.4-5.0); Alkaline Phosphatase 75 U/L (46-116); Aspartate Amino Transferase 160 U/L (15-37); Bilirubin Direct 0.1 mg/dL (0-0.2); Bilirubin,Total 0.5 mg/dL (0.00-1.00)
[2023-03-23 07:11] LABS: Appearance Urine Clear (Clear); Bilirubin Urine Negative (Negative); Blood Urine 2+ (Negative); Color Urine Light Yellow (Yellow); Glucose Urine UA Negative (Negative); Ketones Urine Negative (Negative); Leukocyte Esterase Ur Negative LEU/UL (Negative); Nitrate Urine Negative (Negative); Protein Urine Negative (Negative); Specific Grav Ur 1.015 (1.010-1.020); Urobilinogen Urine 0.2 mg/dL (0.2-1.0)
--- NOTE | 2023-03-23 07:14 | PC.NURSE ---
RN spoke with Cora from poison control, updated on liver fx testing. Recommendations include acetadote 3 doses. loading dose as 150 mg/kg in 250 ml D5H2O over 1 hr; 2nd dose 50 mg/kg in 500 mL over 4 hours; 3rd dose 100 mg/kg in 1 L D5H2O over 16 hours for a total length of tx time 21 hrs with recommended repeat PT/INR 2 hours before 3rd bag is completed. ERP update provided.
[2023-03-23 07:15] LABS: Add Urine Microscopic? YES; Bacteria Urine 2+ /hpf; Squamous Epithelial Cell Urine Occasional /hpf (Few); WBC Urine None seen /hpf (0-3)
[2023-03-23 07:17] LABS: Amphetamine Screen Urine Negative (Negative); Barbiturate Screen Urine Negative (Negative); Benzodiazepines Screen Urine Negative (Negative); Cannabinoid Screen Urine Negative (Negative); Cocaine Screen Urine Negative (Negative); Methadone Screen Urine Negative (Negative); Opiate Screen Urine Positive (Negative); Phencyclidine Screen Urine Negative (Negative)
--- NOTE | 2023-03-23 07:30 | PC.NURSE ---
patient report given to YESSENIA Wolf.
--- NOTE | 2023-03-23 07:56 | PC.NURSE ---
Patient report given to YESSENIA Hernandez at transfer hospital [facility]. patient to CVICU room 21.
[2023-03-23] MEDS: THIAMINE HCL 200 MG/2 ML VIAL 100 MG IV PUSH (08:03)
[2023-03-23] MEDS: WATER IVPB (08:04)
[2023-03-23] MEDS: ACETYLCYSTEINE IVPB (08:04)
[2023-03-23] MEDS: DEXTROSE 5% IVPB (08:04)
[2023-03-23] MEDS: ONDANSETRON HCL ODT 4 MG TABLET PO (08:32)
== END 2023-03-23 08:45 | disposition short-term general hospital (02) ==
PROVIDERS: Internal Medicine Critical Care Medicine; Emergency Provider Family Medicine; PCP Internal Medicine
DX: T40.2X2A Poisoning by other opioids, intentional self-harm, initial encounter (principal); J96.92 Respiratory failure, unspecified with hypercapnia; J96.91 Respiratory failure, unspecified with hypoxia; U07.1 COVID-19; F32.A Depression, unspecified; F41.9 Anxiety disorder, unspecified; Z79.899 Other long term (current) drug therapy
CPT/HCPCS: 36415; 36600; 70450; 71045; 80053; 80076; 80307; 81001; 82803; 82805; 82948; 83605; 84443; 85025; 85610; 87637; 93005; 96361; 96365; 96366; 96367; 96375; 99285; A9270; J0132; J2310; J2405; J3411; J7050; J7060; J7120

== ENCOUNTER 2023-08-08 14:53 | Outpatient (CLI) | payer OTHER, SELFPAY ==
--- NOTE | ~2023-08-08 | MM_ITS ---
EXAMINATION: MM screening janice BI w shaunna HISTORY: Screening mammogram TECHNIQUE: Craniocaudal and mediolateral oblique 3-D tomosynthesis images were obtained and synthetic 2-D images were generated. CAD analysis was submitted and interpreted. COMPARISON: No prior mammogram is available for comparison at this institution. BREAST PARENCHYMAL COMPOSITION: The breasts are heterogeneously dense, which may obscure small masses . FINDINGS: Occasional benign appearing calcifications. There is no evidence of suspicious mass, calcif ication, or architectural distortion to suggest malignancy in either breast.. IMPRESSION: 1. No mammographic evidence of malignancy. 2. Recommend routine screening mammography in one year. BI-RADS Category 2: Benign finding(s). Reviewed, dictated and finalized at location A.
== END 2023-08-08 14:54 | disposition home or self-care (01) ==
LOC: CHSIMG 14:55
PROVIDERS: PCP Internal Medicine; Visit Provider Obstetrics & Gynecology
DX: Z12.31 Encounter for screening mammogram for malignant neoplasm of breast (principal)
CPT/HCPCS: 77063; 77067

== ENCOUNTER 2023-09-20 10:13 | Outpatient (CLI) | payer OTHER, SELFPAY ==
[2023-09-20 11:01] LABS: Appearance Urine Clear (Clear); Bacteria Urine 4+ /hpf; Bilirubin Urine Negative (Negative); Blood Urine 2+ (Negative); Color Urine Dark Yellow (Yellow); Glucose Urine UA Negative (Negative); Ketones Urine Negative (Negative); Leukocyte Esterase Ur Trace LEU/UL (Negative); Nitrate Urine Positive (Negative); Non Pathogenic Casts 0-2; Protein Urine Negative (Negative); Specific Grav Ur 1.018 (1.001-1.035); Squamous Epithelial Cell Urine None Seen /hpf (Few); pH Urine 6.5 (5.0-9.0)
[2023-09-20 11:13] LABS: Add Urine Microscopic? YES
[2023-09-20 11:28] LABS: Hematocrit 40.3 % (37.0-47.0); Mean Corpuscular HGB Conc 32.3 g/dl (32-36); Mean Corpuscular Hemoglobin 29.2 pg (26-34); Mean Corpuscular Volume 90.6 fl (80-100); Mean Platelet Volume 9.8 fl (7.4-10.4); Platelet Count Result 226 k/mm3 (150-375); Red Blood Count 4.45 M/mm3 (4.2-5.4); Red Cell Distribution Width 14.3 % (11.5-14.5); White Blood Count 6.7 K/mm3 (4.5-10.0)
[2023-09-20 11:33] LABS: Alanine Aminotransferase 17 U/L (6-35); Albumin Level 4.4 g/dL (3.5-5.1); Alkaline Phosphatase 56 U/L (38-126); Anion Gap 5 mmol/L (4-12); Aspartate Amino Transferase 22 U/L (14-36); Bilirubin,Total 1.2 mg/dL (0.2-1.3); Blood Urea Nitrogen 16 mg/dL (7-17); Carbon Dioxide 27 mmol/L (22-30); Chloride 105 mmol/L (98-107); Cholesterol 174 mg/dL (0-200); Estimated Glomerular Filt Rate > 60; Glucose 86 mg/dL (65-110); HDL Direct 66 mg/dL; Potassium 3.9 mmol/L (3.4-5.0); Sodium 137 mmol/L (137-145); Triglycerides 49 mg/dL (<150)
[2023-09-20 11:43] LABS: LDL Cholesterol Direct 88 mg/dL
[2023-09-20 12:03] LABS: Thyroid Stimulating Hormone 0.105 uIU/mL (0.465-4.680)
== END 2023-09-20 10:14 | disposition home or self-care (01) ==
LOC: ANHLAB 10:15
PROVIDERS: PCP Internal Medicine; Visit Provider Internal Medicine
DX: Z00.00 Encounter for general adult medical examination without abnormal findings (principal); R94.6 Abnormal results of thyroid function studies
CPT/HCPCS: 36415; 80053; 80061; 81001; 84439; 84443; 84481; 85027

== ENCOUNTER 2023-10-03 09:56 | Outpatient (CLI) | payer OTHER, SELFPAY ==
[2023-10-03 12:41] LABS: Free T4 Free Thyroxine 0.78 ng/mL (0.78-2.19)
[2023-10-05 03:34] LABS: Triiodothyronine T3 Free 2.9 pg/mL (2.3-4.2)
== END 2023-10-03 09:57 | disposition home or self-care (01) ==
LOC: ANHLAB 10:00
PROVIDERS: PCP Internal Medicine; Visit Provider Internal Medicine
DX: R94.6 Abnormal results of thyroid function studies (principal); E03.9 Hypothyroidism, unspecified
CPT/HCPCS: 36415; 84439; 84481

== ENCOUNTER 2023-10-10 13:58 | Outpatient (CLI) | payer OTHER, SELFPAY ==
[2023-10-10 14:24] LABS: Appearance Urine Clear (Clear); Bacteria Urine 4+ /hpf; Bilirubin Urine Negative (Negative); Blood Urine 1+ (Negative); Color Urine Yellow (Yellow); Glucose Urine UA Negative (Negative); Ketones Urine Negative (Negative); Leukocyte Esterase Ur Trace LEU/UL (Negative); Nitrate Urine Negative (Negative); Non Pathogenic Casts 0-2; Protein Urine Negative (Negative); Specific Grav Ur 1.006 (1.001-1.035); Squamous Epithelial Cell Urine None Seen /hpf (Few); Urobilinogen Urine 0.2 mg/dL (<2.0); pH Urine 7.5 (5.0-9.0)
[2023-10-10 14:41] LABS: Add Urine Microscopic? YES
== END 2023-10-10 13:59 | disposition home or self-care (01) ==
LOC: ANHLAB 14:00
PROVIDERS: PCP Internal Medicine; Visit Provider Internal Medicine
DX: N39.0 Urinary tract infection, site not specified (principal)
CPT/HCPCS: 81001; 87077; 87086; 87088; 87186

== ENCOUNTER 2024-08-27 14:25 | Emergency (ER) | payer OTHER, SELFPAY ==
--- NOTE | ~2024-08-27 | CT_ITS ---
EXAMINATION: CTA chest PE protocol DATE: 08/27/2024 18:47 INDICATION: elevated d dimer TECHNIQUE: Computed tomography angiography (CTA) of the chest was performed with 100 mL Omnipaque-350 intravenous contrast timed to evaluate the pulmonary arteries. Coronal maximum intensity projection 3D-reconstructions were created by the technologist. The dose-length product (DLP) was 291.54 mGy-cm. Automated exposure control and iterative reconstruction technique were employed. COMPARISON: 11/25/2022. FINDINGS: Lung parenchyma and airways: Scattered sub-6 mm pulmonary nodules, otherwise clear. Patent airways. Pleura: Unremarkable. Thoracic inlet, axillae and chest wall: Unremarkable. Thoracic aorta: No significant dilation. No dissection. Mediastinum: Normal. Heart and pericardium: Dilated right atrium and right ventricle. No pericardial effusion. Coronary artery calcifications: Absent. Upper abdomen: No significant finding. Bones: No acute osseous finding. Pulmonary arteries: Study quality: Adequate. No pulmonary emboli detected. IMPRESSION: No CT evidence of acute pulmonary embolus. No acute process detected in the chest. Right atrial and right ventricular chamber enlargement. Correlate with cardiac history, and consider cardiology referral. Multiple subcentimeter pulmonary nodules, likely representing benign granulomas. If the patient is at high risk, consider an optional low-dose noncontrast CT of the chest in 12 months. Reviewed, dictated and finalized at location K. IMPRESSION: No CT evidence of acute pulmonary embolus. No acute process detected in the chest. Right atrial and right ventricular chamber enlargement. Correlate with cardiac history, and consider cardiology referral. Multiple subcentimeter pulmonary nodules, likely representing benign granulomas . If the patient is at high risk, consider an optional low-dose noncontrast CT of the chest in 12 months.
[2024-08-27 15:08] VITALS: BP 116/69; PULSE 69; RESP 16; TEMP 36.7; O2SAT 97
--- OUTSIDE RECORDS SUMMARY | 2024-08-27 15:47 | XMS_ITS | Patient Health Record ---
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 Cleaner Caulker Name Role Phone Toney AQUINO, [facility] Primary Care Provider Unavaila Shreya Coppola Unavailable [phone] Sariah Maravilla Unavailable [phone] Migration, Provider Unavailable Unavailable Allergies No Known Allergies Reason For Referral No Information Medications Medication SIG (Take, Route, Frequency, Duration) Notes Start Date End Date Status Hydroquinone 4 % External 09/08/2023 Ac tive Tretinoin 0.025 % External 09/08/2023 A ctive Sertraline HCl 50 MG 0.5 tablet once a day for 7 days, 1 tablet once a day for 7 days, 1.5 tablets once a day for 16 days Oral for 30 days 08/26/2024 Active Amoxicillin 500 MG Oral 09/08/2023 Active busPIRone HCl 15 MG TAKE 1 TABLET BY MOUTH THREE TIMES A DAY Active FLUoxetine HCl 20 MG 3 capsules once a day for 7 days, 2 capsules once a day for 7 days, 1 capsule once a day for 7 days Orally for 21 days switching to zoloft 08/26/2024 Active ARIPiprazole 2 MG 1 tablet Oral Once a day no 90 day please, may be DCing next month Active Social History Tobacco Use: Social History Observation Description Date Details (start date - stop date) Never Smoker NA - NA Sex Assigned At : Social History Observation Description Sex Assigned At Female Tobacco Control (Standard) Question Answer Notes Tobacco use: Nonsmoker AUDIT-C (Standard) Question Answer Notes Did you have a drink contain ing alcohol in the past year? Yes How often did you have six o r more drinks on one occasion in the past year? Less than monthly (1 point) How many drinks did you have on a typical day when you were drinking in the past year? 3 or 4 drinks (1 point) How often did you have a dri nk containing alcohol in the past year? 2 to 3 times a week (3 points) Problems Problem Type SNOMED Code ICD Code Onset Dates Problem Status W/U Status Risk Notes Problem Mild recurrent major depression (77199571) Major depressive disorder, recurrent, mild (F33.0) 4 Active confirmed Problem Generalized anxiety disorder (32333127) Generalized anxiety disorder (F41.1) 4 Active confirmed Problem Chronic insomnia (745531451) Chronic insomnia (F51.04) Active confirmed Problem Panic disorder (271514528) Panic attacks (F41.0) Active confirmed Vital Signs Heart Rate 63 /min 08/26/2024 Blood pressure diastolic 87 mm Hg 08/26/2024 Height-cm 170.18 cm 08/26/2024 Weight-kg 81.65 kg 08/26/2024 Height 67.00 in 08/26/2024 Blood pressure systolic 132 mm Hg 08/26/2024 Weight 180 lbs 08/26/2024 BMI 28.19 kg/m2 08/26/2024 Encounters Encounter Location Date Provider Diagnosis [employer] [facility] [address] [address] 09/08/2023 Sariah Maravilla Generalized anxiety disorder F41.1 ; Major depressive disorder, recurrent, mild F33.0 ; Alcohol use, unspecified, uncomplicated F10.90 ; Psychophysiologic insomnia F51.04 and Panic disorder [episodic paroxysmal anxiety] without agoraphobia F41.0 [employer] [address] [facility] [address] [place] [address] 11/20/2023 Sariah Maravilla Major depressive disorder, recurrent, mild F33.0 ; Generalized anxiety disorder F41.1 ; Chronic insomnia F51.04 ; Panic attacks F41.0 and Current drinker Z78.9 [employer] [address] [facility] [address] [facility] [address] [place] [address] 01/22/2024 Sariah Maravilla Major depressive disorder, recurrent, mild F33.0 ; Generalized anxiety disorder F41.1 ; Chronic insomnia F51.04 ; Panic attacks F41.0 and Current drinker Z78.[address] [address] 04/22/2024 Shreya Antonio Major depressive disorder, recurrent, mild F33.0 ; Generalized anxiety disorder F41.1 ; Chronic insomnia F51.04 and Panic attacks F41.[address] [address] 07/22/2024 Shreya Antonio Encounter for screen ing for depression Z13.31 ; Major depressive disorder, recurrent, mild F33.0 ; Generalized anxiety disorder F41.1 ; Chronic insomnia F51.04 and Panic attacks F41.[address] [address] 08/26/2024 Shreya Antonio Major depressive disorder, recurrent, mild F33.0 ; Generalized anxiety disorder F41.1 ; Chronic insomnia F51.04 ; Encounter for screening for depression Z13.31 and Encounter for screening for cardiovascular disorders Z13.[address] [address] 09/16/2023 Provider Migration [address] [address] 09/17/2023 Provider Migration [address] [address] 05/14/2024 Shreya Antonio [address] [address] 05/14/2024 Shreya Antonio Assessments Encounter Date Diagnosis (ICD Code) Assessment Notes Treatment Notes Treatment Clinical Notes Section Notes 09/08/2023 Major depressive disorder, recurrent, mild (ICD-10 - F33.0) 09/08/2023 Generalized anxiety disorder (ICD-10 - F41.1) 09/08/2023 Psychophysiologic insomnia (ICD-10 - F51.04) 09/08/2023 Alcohol use, unspecified, uncomplicated (ICD-10 - F10.90) 09/08/2023 Panic disorder [episodic paroxysmal anxiety] without agoraphobia (ICD-10 - F41.0) 11/20/2023 Major depressive disorder, recurrent, mild (ICD-10 - F33.0) cont abilify 2mg daily cont fluoxetine 60mg qam (20mg + 40mg) cont therapy 11/20/2023 Generalized anxiety disorder (ICD-10 - F41.1) increase buspar to 15mg TID SSRI, therapy discuss options, often misses middle buspar dose, shared decision to increase buspar and can use middle dose as needed or scheduled. education on meds/treatment course cont minimize etoh cont counseling f/u 2 months, earlier if concerns 01/22/2024 Major depressive disorder, recurrent, mild (ICD-10 - F33.0) cont abilify 2mg daily cont fluoxetine 60mg qam (20mg + 40mg) cont therapy 04/22/2024 Major depressive disorder, recurrent, mild (ICD-10 - F33.0) Assessment and Plan: Doing well overall, no concerns. Some mild depressive symptoms, she related to holiday and the loss of her brother on [place] 13 yrs ago. Feels she is coping well No panic attacks, anxiety has been mild, manaegable, and appropriate for situations. Denies SI, denies substance use concerns. Sleeping well No changes at this time Plan: - continue fluoxetine 60 mg daily - continue buspirone 15 mg TID (sometimes takes the third dose as neeed) - continue abilify 2 mg qhs follow up 3 months, sooner if concerns arise 07/22/2024 Encounter for screening for depression (ICD-10 - Z13.31) Major Depressive Disorder Assessment: Patient reports feeling blah and experiencing increased sleep, suggesting a recurrence of depressive symptoms. Current medication regimen includes fluoxetine 60 mg daily and aripiprazole 2 mg, which have been in place for approximately one year. Patient has increased therapy frequency, which has provided some benefit. Recent medical evaluation ruled out other causes for weight gain and fatigue. No current suicidal ideation reported. Plan: - Increase fluoxetine from 60 mg to 80 mg PO daily, to be taken in the morning - Continue aripiprazole 2 mg daily (no change) - Follow up in 4 weeks to assess response to medication adjustment - If no improvement noted at follow-up, consider alternative medication options Medication-ind uced Weight Gain Assessment: Patient reports weight gain, concerns from aripiprazole contributing Plan: - Monitor weight and appetite changes - Encourage continuation of walking for mental health benefits and weight management - Consider potential medication adjustments in the future if weight gain persists or worsens 08/26/2024 Major depressive disorder, recurrent, mild (ICD-10 - F33.0) 08/26/2024 Generalized anxiety disorder (ICD-10 - F41.1) 08/26/2024 Chronic insomnia (ICD-10 - F51.04) 07/22/2024 Major depressive disorder, recurrent, mild (ICD-10 - F33.0) Major Depressive Disorder Assessment: Patient reports feeling blah and experiencing increased sleep, suggesting a recurrence of depressive symptoms. Current medication regimen includes fluoxetine 60 mg daily and aripiprazole 2 mg, which have been in place for approximately one year. Patient has increased therapy frequency, which has provided some benefit. Recent medical evaluation ruled out other causes for weight gain and fatigue. No current suicidal ideation reported. Plan: - Increase fluoxetine from 60 mg to 80 mg PO daily, to be taken in the morning - Continue aripiprazole 2 mg daily (no change) - Follow up in 4 weeks to assess response to medication adjustment - If no improvement noted at follow-up, consider alternative medication options Medication-ind uced Weight Gain Assessment: Patient reports weight gain, concerns from aripiprazole contributing Plan: - Monitor weight and appetite changes - Encourage continuation of walking for mental health benefits and weight management - Consider potential medication adjustments in the future if weight gain persists or worsens 04/22/2024 Generalized anxiety disorder (ICD-10 - F41.1) Assessment and Plan: Doing well overall, no concerns. Some mild depressive symptoms, she related to holiday and the loss of her brother on [place] 13 yrs ago. Feels she is coping well No panic attacks, anxiety has been mild, manaegable, and appropriate for situations. Denies SI, denies substance use concerns. Sleeping well No changes at this time Plan: - continue fluoxetine 60 mg daily - continue buspirone 15 mg TID (sometimes takes the third dose as neeed) - continue abilify 2 mg qhs follow up 3 months, sooner if concerns arise 01/22/2024 Generalized anxiety disorder (ICD-10 - F41.1) improved cont buspar 15mg TID SSRI, therapy tolerating buspar increase and having benefit. Feels sx are manageable, satisfied with current regimen cont counseling f/u 3 months, earlier if concerns 11/20/2023 Chronic insomnia (ICD-10 - F51.04) practice good sleep hygiene recommend decrease caffeine, lupe later in day has otc melatonin 11/20/2023 Panic attacks (ICD-10 - F41.0) as above 01/22/2024 Chronic insomnia (ICD-10 - F51.04) practice good sleep hygiene minimize caffeine has otc melatonin 04/22/2024 Chronic insomnia (ICD-10 - F51.04) Assessment and Plan: Doing well overall, no concerns. Some mild depressive symptoms, she related to holiday and the loss of her brother on [place] 13 yrs ago. Feels she is coping well No panic attacks, anxiety has been mild, manaegable, and appropriate for situations. Denies SI, denies substance use concerns. Sleeping well No changes at this time Plan: - continue fluoxetine 60 mg daily - continue buspirone 15 mg TID (sometimes takes the third dose as neeed) - continue abilify 2 mg qhs follow up 3 months, sooner if concerns arise 07/22/2024 Generalized anxiety disorder (ICD-10 - F41.1) Major Depressive Disorder Assessment: Patient reports feeling blah and experiencing increased sleep, suggesting a recurrence of depressive symptoms. Current medication regimen includes fluoxetine 60 mg daily and aripiprazole 2 mg, which have been in place for approximately one year. Patient has increased therapy frequency, which has provided some benefit. Recent medical evaluation ruled out other causes for weight gain and fatigue. No current suicidal ideation reported. Plan: - Increase fluoxetine from 60 mg to 80 mg PO daily, to be taken in the morning - Continue aripiprazole 2 mg daily (no change) - Follow up in 4 weeks to assess response to medication adjustment - If no improvement noted at follow-up, consider alternative medication options Medication-ind uced Weight Gain Assessment: Patient reports weight gain, concerns from aripiprazole contributing Plan: - Monitor weight and appetite changes - Encourage continuation of walking for mental health benefits and weight management - Consider potential medication adjustments in the future if weight gain persists or worsens 08/26/2024 Encounter for screening for depression (ICD-10 - Z13.31) 08/26/2024 Encounter for screening for cardiovascular disorders (ICD-10 - Z13.6) 07/22/2024 Chronic insomnia (ICD-10 - F51.04) Major Depressive Disorder Assessment: Patient reports feeling blah and experiencing increased sleep, suggesting a recurrence of depressive symptoms. Current medication regimen includes fluoxetine 60 mg daily and aripiprazole 2 mg, which have been in place for approximately one year. Patient has increased therapy frequency, which has provided some benefit. Recent medical evaluation ruled out other causes for weight gain and fatigue. No current suicidal ideation reported. Plan: - Increase fluoxetine from 60 mg to 80 mg PO daily, to be taken in the morning - Continue aripiprazole 2 mg daily (no change) - Follow up in 4 weeks to assess response to medication adjustment - If no improvement noted at follow-up, consider alternative medication options Medication-ind uced Weight Gain Assessment: Patient reports weight gain, concerns from aripiprazole contributing Plan: - Monitor weight and appetite changes - Encourage continuation of walking for mental health benefits and weight management - Consider potential medication adjustments in the future if weight gain persists or worsens 04/22/2024 Panic attacks (ICD-10 - F41.0) Assessment and Plan: Doing well overall, no concerns. Some mild depressive symptoms, she related to holiday and the loss of her brother on [place] 13 yrs ago. Feels she is coping well No panic attacks, anxiety has been mild, manaegable, and appropriate for situations. Denies SI, denies substance use concerns. Sleeping well No changes at this time Plan: - continue fluoxetine 60 mg daily - continue buspirone 15 mg TID (sometimes takes the third dose as neeed) - continue abilify 2 mg qhs follow up 3 months, sooner if concerns arise 01/22/2024 Panic attacks (ICD-10 - F41.0) as above 11/20/2023 Current drinker (ICD-10 - Z78.9) continue to minimize etoh frequency and quantity 01/22/2024 Current drinker (ICD-10 - Z78.9) continue to minimize etoh frequency and quantity 07/22/2024 Panic attacks (ICD-10 - F41.0) Major Depressive Disorder Assessment: Patient reports feeling blah and experiencing increased sleep, suggesting a recurrence of depressive symptoms. Current medication regimen includes fluoxetine 60 mg daily and aripiprazole 2 mg, which have been in place for approximately one year. Patient has increased therapy frequency, which has provided some benefit. Recent medical evaluation ruled out other causes for weight gain and fatigue. No current suicidal ideation reported. Plan: - Increase fluoxetine from 60 mg to 80 mg PO daily, to be taken in the morning - Continue aripiprazole 2 mg daily (no change) - Follow up in 4 weeks to assess response to medication adjustment - If no improvement noted at follow-up, consider alternative medication options Medication-ind uced Weight Gain Assessment: Patient reports weight gain, concerns from aripiprazole contributing Plan: - Monitor weight and appetite changes - Encourage continuation of walking for mental health benefits and weight management - Consider potential medication adjustments in the future if weight gain persists or worsens 11/20/2023 Other 08/26/2024 Other Amena Murillo, female, presents with ongoing depression symptoms including low mood, fatigue, anhedonia, and sleep disturbances despite long-term Prozac use. Major Depressive Disorder and Anxiety Assessment: Patient reports persistent depressive symptoms despite long-term use of Prozac, suggesting possible medication tolerance or inadequate response. Symptoms include low mood, fatigue, anhedonia, lack of motivation, and hypersomnia. Patient denies current suicidal ideation. Recent alcohol use noted over the weekend, which may exacerbate depressive symptoms. Previous trial of Wellbutrin was unsuccessful due to concurrent heavy alcohol use at the time. Anxiety symptoms appear to be well-controlled with no recent panic attacks reported. Plan: - Initiate cross-taper from Prozac to Zoloft: Week 1: Decrease Prozac to 60mg daily, start Zoloft 25mg daily Week 2: Decrease Prozac to 40mg daily, increase Zoloft to 50mg daily Week 3: Decrease Prozac to 20mg daily, increase Zoloft to 75mg daily Week 4: Discontinue Prozac, maintain Zoloft at 75mg daily - Educate patient on potential need for Zoloft dose increase for optimal management in future - Follow up after week 4 of medication transition to assess response and tolerability - [place] on limiting alcohol intake due to potential interactions with antidepressants and exacerbation of depressive symptoms Plan Of Treatment Next Appt Details Provider Name:Shreya roach, 09/20/2024 04:15:00 PM, [address], [place], [address], Insurance Providers Payer Name Payer Address Payer Phone Subscriber Number Group Number Insured Name Patient Relationship to Insured Coverage Start Date Coverage End Date [employer] Pos [address] [place] [address] [id number] JESÚS OZUNA Spouse - patient is the spouse of the insured Medical (General) History Medical History History ICD Code Problems: Chronic insomnia Mild recurrent major depression Past Psychiatric History: Anxiety Disord er undefined Surgical History Surgery Date(Month/Year) Removal of gallbladder (44923) 6 Tonsilectomy/adenoids 08/26/2002 Any surgical history bladder sling 09/19 Hysterectomy (44038) 09/19/2022 Endometrial ablation (65948) 03/15/2016
--- OUTSIDE RECORDS SUMMARY | 2024-08-27 15:48 | XMS_ITS | Clinical Summary ---
Author Organization [facility] Address [address] [place] [address] Care Team Providers Care Inner Tube Inserter Name Role Phone Unavailable Primary Care Provider Unavailabl e Source Comments [facility],non-owned Affiliates and Associated Physician Practices is amultiple site organization consisting of ambulatory clinics and hospital sitesin [place], [place]. This disclosure is being madepursuant to the Care Everywhere program and may not contain all information available regarding this patient. Last updated 18.[facility] Allergies No known active allergies Medications * Be aware that medications may not be up to date on this document. Alwaysverify current medications with the patient. Vit-Fe Fumarate-FA ( VITAMIN) 28-0.8 MG tablet Take 1 Tab by mouth once daily. Active FLUoxetine (PROZAC) 20 MG capsule Take 20 mg by mouth once daily. Active ibuprofen (MOTRIN) 600 MG tablet Take 1 Tab by mouth every 6 hours as needed for Pain. 60 Tab 1 12/16/2010 Active docusate sodium (COLACE) 100 MG capsule Take 1 Cap by mouth 2 times daily as needed for Constipatio n. 60 Cap 1 12/16/2010 Active Vit-Fe Fumarate-FA ( VITAMIN) 28-0.8 MG tablet Take 1 Tab by mouth once daily. 30 Tab 12 12/16/2010 Active norethindrone (NOR-QD) 0.35 MG tablet Take 1 Tab by mouth once daily. 3 Packet 3 12/16/2010 Active ferrous sulfate 325 (65 FE) MG tablet Take 1 Tab by mouth daily with breakfast. 30 Tab 2 12/16/2010 Active Active Problems Problem Noted Date Diagnosed Date GERD (gastroesophageal reflux disease) 1 Overview (12/06/2010): pepcid bid Supervision of normal 12/03/2010 Overview (12/08/2010): Dating by LMP = 14wk documented US PNC with Dr. Ocampo at [place], Transferred by Dr. Simpson Blood type: A+/I/-/-, HIV: NR Pap: GC/CT: negative 12/03/10 H/H/Plt: 12.6/37.7/246 on 05/24/10 GCT: 85 GBS: negative 12/03/10 labor 12/03/2010 Overview (12/10/2010): 12/03/10, pt made cervical change from 1cm to 3-4/80/BBOW per OSH report Then PPROM while in transport Generalized anxiety disorder 12/03/2010 Overview (12/03/2010): prozac 20mg daily Depression 12/03/2010 Overview (12/03/2010): prozac 20mg daily, denies SI/HI Vaginal bleeding before 22 weeks gestation 12/03 Overview (12/03/2010): Bleeding on and off from 5 to 16 weeks, no recent bleeding premature rupture of membranes 1 Overview (12/03/2010): 12/03/10 around 1400 Family History Medical History Relation Name Comments Diabetes Brother Alcohol abuse Father Diabetes Father Hypertension Mother Migraine Mother Hypertension Paternal Uncle Relation Name Status Comments Brother Father Mother Paternal Uncle Social History Tobacco Use Types Packs/Day Years Used Date Smoking Tobacco: Never Alcohol Use Standard Drinks/Week Comments No 0 (1 standard drink = 0.6 oz pur e alcohol) Comments Unknown Sex and Gender Information Value Date Recorded Sex Assigned at Not on file 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 Gender Identity Not on file Sexual Orientation Not on file Last Filed Vital Signs Vital Sign Reading Time Taken Comments Blood Pressure 117/71 12/16/2010 12:00 PM CDT Pulse 61 12/16/2010 12:00 PM CDT Temperature 36.8 C (98.2 F) 12/16/2010 12:00 PM CDT Respiratory Rate 20 12/16/2010 12:00 PM CDT Oxygen Saturation 99% 12/13/2010 11:11 PM CDT Inhaled Oxygen Concentration - - Weight 77.6 kg (171 lb) 12/03/2010 3:15 PM CDT Height 170.2 cm (5' 7 ) 12/03/2010 3:15 PM CDT Body Mass Index 26.78 12/03/2010 3:15 PM CDT Plan of Treatment Health Maintenance Due Date Last Done Comments LIPID TESTING 1983 MAMMOGRAM 1983 PAP SMEAR 1983 HIV SCREENING 07/06/1998 HEPATITIS C SCREENING 07/02/2001 DTAP/TDAP/TD VACCINES (1 - Tdap) 07/06/2002 HEPATITIS B VACCINE (1 of 3 - 19+ 3-dose series) 07/06/2002 COVID-19 VACCINE ( - 2023-2 5 season) 2023 DEPRESSION SCREENING 05/01/2024 INFLUENZA VACCINE (Season Ended) 2024 ZOSTER VACCINE (1 of 2) 07/06/2033 HIB VACCINE Aged Out No longer eligi ble based on patient's age to complete this topic HPV VACCINE Aged Out No longer eligi ble based on patient's age to complete this topic MENINGOCOCCAL (Group B) VACC INE SHARED DECISION-MAKING Aged Out No longer eligibl e based on patient's age to complete this topic MENINGOCOCCAL GROUPS A/C/Y/W VACCINE Aged Out No longer eligible b ased on patient's age to complete this topic PNEUMOCOCCAL VACCINE Aged Out No long er eligible based on patient's age to complete this topic Insurance [employer] [facility] Address: [facility] [id number] [place] [address] Advance Directives * FULL RESUSCITATION (Latest Code Status on File) Date Activated Date Inactivated Comments 12/13/2010 7:47 AM 12/17/2010 3:19 AM * FULL RESUSCITATION Date Activated Date Inactivated Comments 12/03/2010 4:28 PM 12/13/2010 7:47 AM
--- OUTSIDE RECORDS SUMMARY | 2024-08-27 15:48 | XMS_ITS | Clinical Summary ---
Author Organization [facility] Address [address] [place] [address] Care Team Providers Care Field Seismologist Name Role Phone Cole Ziegler MD Primary Care Provider Allergies No known active allergies Medications busPIRone (BUSPAR) 10 MG tablet Take 1 tablet (10 mg total) by mouth 2 (two) times daily. Active FLUoxetine (PROZAC) 40 MG capsule Take 1 capsule (40 mg total) by mouth daily. Active amoxicillin (AMOXIL) 500 MG tablet Take 1 tablet (500 mg total) by mouth 2 (two) times daily. Active multi vitamin/mineral s (THERA-M ENHANCED) tablet Take 1 tablet by mouth daily. Active Active Problems Problem Noted Date Diagnosed Date Opioid overdose ([facility]) 03/23/2023 Social History Tobacco Use Types Packs/Day Years Used Date Smoking Tobacco: Never Smokeless Tobacco: Never Tobacco Cessation:Counseling Given: Not Answered Alcohol Use Standard Drinks/Week Comments Yes 0 (1 standard drink = 0.6 oz pur e alcohol) Drinks beer everyday. 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 Gender Identity Not on file Sexual Orientation Not on file Last Filed Vital Signs Vital Sign Reading Time Taken Comments Blood Pressure 113/73 03/25/2023 7:41 AM PHYSICS AND ASTRONOMY PROFESSOR Pulse 62 03/25/2023 7:41 AM PHYSICS AND ASTRONOMY PROFESSOR Temperature 36.5 C (97.7 F) 03/25/2023 7:41 AM PHYSICS AND ASTRONOMY PROFESSOR Respiratory Rate 20 03/25/2023 7:41 AM PHYSICS AND ASTRONOMY PROFESSOR Oxygen Saturation 100% 03/25/2023 7:41 AM PHYSICS AND ASTRONOMY PROFESSOR Inhaled Oxygen Concentration - - Weight 76.5 kg (168 lb 10.4 oz) 03/25/2023 5:00 AM PHYSICS AND ASTRONOMY PROFESSOR Height 170.2 cm (5' 7 ) 03/23/2023 10:0 0 AM PHYSICS AND ASTRONOMY PROFESSOR Body Mass Index 26.41 03/23/2023 10:00 AM PHYSICS AND ASTRONOMY PROFESSOR Plan of Treatment Health Maintenance Due Date Last Done Comments Annual Physical 07/06/1986 Hepatitis C 07/06/2001 Hepatitis B Vaccines (1 of 3 - 19+ 3-dose series) 07/06/2002 Mammogram Screening 2023 COVID-19 Vaccine (4 - 2023-2 5 season) 2023 03/20/2021, 05/25/2020, 04/27/2020 DTaP, Tdap and Td Vaccines ( 2 - Td or Tdap) 04/01/2025 04/01/2015 HPV Vaccines Aged Out No longer eligi ble based on patient's age to complete this topic Meningococcal B Vaccine Aged Out No l onger eligible based on patient's age to complete this topic Meningococcal Vaccine Aged Out No rody linette eligible based on patient's age to complete this topic Pneumococcal Vaccine: Pediatrics (0 to 5 Years) and At-Risk Patients (6 to 49 Years) Aged Out No longer eligible b ased on patient's age to complete this topic RSV Immunizations Under 20 Months Aged Out No longer eligible b ased on patient's age to complete this topic Insurance [employer] Advance Directives * Full Code (Latest Code Status on File) Date Activated Date Inactivated Comments 03/23/2023 10:01 AM 03/25/2023 3:36 PM Care Teams Field Seismologist Relationship Specialty Start Date End Date Cole Ziegler MD [address] [place] [address] PCP - General INTERNAL MEDICINE 03/01/23
--- OUTSIDE RECORDS SUMMARY | 2024-08-27 15:49 | XMS_ITS | Referral Summary ---
Author Organization [facility] Address [address] [place] [phone] Phone Care Team Providers Care Pad Machine Offbearer Name Role Phone Boris Ziegler MD Primary Care Provider [phone] Allergies No known active allergies Medications busPIRone (BUSPAR) 10 mg tablet Take 1 tablet (10 mg total) by mouth 2 (two) times a day 03/13/2021 Active FLUoxetine (PROzac) 40 mg capsule Take 1 capsule (40 mg total) by mouth every morning 05/26/2021 Active amoxicillin 500 mg capsule TAKE 1 CAPSULE BY MOUTH TWICE A DAY FOR ACNE 05/15/2021 Active Active Problems No known active problems Social History Tobacco Use Types Packs/Day Years Used Date Smoking Tobacco: Never Assessed Comments Unknown Sex and Gender Information Value Date Recorded Sex Assigned at Not on file Legal Sex Female 8:09 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 Gender Identity Female 06/18/2021 11:42 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 PROCESSING Sexual Orientation Not on file Last Filed Vital Signs Vital Sign Reading Time Taken Comments Blood Pressure 132/84 04/20/2024 2:18 PM DIRECTOR STERILE PROCESSING Pulse 76 04/20/2024 2:18 PM DIRECTOR STERILE PROCESSING Temperature 37 C (98.6 F) 04/20/2024 2:18 PM DIRECTOR STERILE PROCESSING Respiratory Rate 18 04/20/2024 2:18 PM DIRECTOR STERILE PROCESSING Oxygen Saturation 99% 04/20/2024 2:18 PM DIRECTOR STERILE PROCESSING Inhaled Oxygen Concentration - - Weight 83 kg (183 lb) 04/20/2024 2:18 PM DIRECTOR STERILE PROCESSING Height 170.2 cm (5' 7 ) 04/20/2024 2:18 PM DIRECTOR STERILE PROCESSING Body Mass Index 28.66 04/20/2024 2:18 PM DIRECTOR STERILE PROCESSING Plan of Treatment Not on file [facility] Care Teams Pad Machine Offbearer Relationship Specialty Start Date End Date Boris Ziegler MD PCP - General Internal Medicine 06/18/21
--- OUTSIDE RECORDS SUMMARY | 2024-08-27 15:49 | XMS_ITS | Clinical Summary ---
Author Organization [facility] Address [address] [place] [phone] Phone Care Team Providers Care Pie Crust Mixer Name Role Phone Boris Ziegler MD Primary Care Provider [phone] Allergies No known active allergies Medications busPIRone [...] on file Legal Sex Female 8:09 AM CLINICAL BIOSTATISTICS DIRECTOR Gender Identity Female 06/18/2021 11:42 AM CLINICAL BIOSTATISTICS DIRECTOR Sexual Orientation Not on file Obstetrics History Last Filed Vital Signs Vital Sign Reading Time Taken Comments Blood Pressure 132/84 04/20/2024 2:18 PM CLINICAL BIOSTATISTICS DIRECTOR Pulse 76 04/20/2024 2:18 PM CLINICAL BIOSTATISTICS DIRECTOR Temperature 37 C (98.6 F) 04/20/2024 2:18 PM CLINICAL BIOSTATISTICS DIRECTOR Respiratory Rate 18 04/20/2024 2:18 PM CLINICAL BIOSTATISTICS DIRECTOR Oxygen Saturation 99% 04/20/2024 2:18 PM CLINICAL BIOSTATISTICS DIRECTOR Inhaled Oxygen Concentration - - Weight 83 kg (183 lb) 04/20/2024 2:18 PM CLINICAL BIOSTATISTICS DIRECTOR Height 170.2 cm (5' 7 ) 04/20/2024 2:18 PM CLINICAL BIOSTATISTICS DIRECTOR Body Mass Index 28.66 04/20/2024 2:18 PM CLINICAL BIOSTATISTICS DIRECTOR Plan of Treatment Health Maintenance Due Date Last Done Comments Breast Cancer Screening-Mammogram 1983 Cervical Cancer Screening 1983 Depression Screening 1983 Hepatitis C Screening 1983 Varicella Vaccines (1 of 2 - 13+ 2-dose series) 07/06/1996 Hepatitis B Screening 07/06/2001 Regular Well Visit/Exam 18-64 07/06/2001 Covid-19 Vaccine (4 - 2023-2 5 season) 2023 03/20/2021, 05/25/2020, 04/27/2020 DTaP/Tdap/Td Vaccine (2 - Td or Tdap) 04/01/2025 04/01/2015 Influenza Vaccine Completed 02/02/2024, 02/09/2023, 01/30/2012 HPV Vaccines Aged Out No longer eligi ble based on patient's age to complete this topic Pneumococcal vaccine <65 Aged Out No longer eligible based on patient's age to complete this topic Insurance [facility] [employer] [facility] Address: [facility] [id number] [place] [address] [facility] Care Teams Pie Crust Mixer Relationship Specialty Start Date End Date Boris Ziegler MD PCP - General Internal Medicine 06/18/21
--- NOTE | 2024-08-27 16:00 | ED_ITS ---
HPI - Abdominal Pain General Chief Complaint: Abdominal Pain <Rosa Briones PA-C - Last Filed: 08/28/24 22:34> Stated Complaint: Abdominal pain-nausea <Rosa Briones PA-C - Last Filed: 08/28/24 22:34> Time Seen by Provider: 08/27/24 16:00 <Rosa Briones PA-C - Last Filed: 08/28/24 22:34> Focused HPI: This is a 39 year old female that presents to the ER for abdominal pain. Reports associated nausea, epigastric pain, lightheadedness, shortness of breath, chest pain. Reports she felt like she was going to pass out. Reports it felt like when she was having gallbladder attacks. She has had a cholecystectomy. Denies fever, vomiting. GENERAL: Well-appearing, well-nourished, and in no acute distress. HEAD: Normocephalic, atraumatic. CHEST: Clear to auscultation. ?No respiratory distress. HEART: Regular rate and rhythm.? NEURO: ?Alert and oriented x3. Patient screened in triage and initial orders placed.? ?Additional care and disposition to be based upon?diagnostic testing and treatment. <Rosa Briones PA-C - Last Filed: 08/28/24 22:34> History of Present Illness HPI narrative: 39-year-old female present to the emergency department for evaluation for onset epigastric chest pain that was worsened after lunch. Patient states she had a baked chicken breast and cottage cheese for lunch. Patient does have prior history of biliary colic but also is post cholecystectomy. Patient states she does take some ibuprofen but no significant increased. Patient states she did have some have your alcohol consumption this weekend with some of her friends. <Lyle Harrison MD - Last Filed: 08/27/24 21:53> Related Data Home Medications: Home Medications ?Medication ?Instructions ?Recorded ?Confirmed ?Last Taken ?Type buspirone 10 mg tablet 10 mg PO BID 05/04/22 05/15/24 09/19/22 History fluoxetine 40 mg capsule (Prozac) 40 mg PO DAILY 05/04/22 05/15/24 09/19/22 History multivitamin with minerals 1 tablet PO DAILY 09/09/22 05/10/23 09/16/22 History (Hair,Skin and Nails tablet) amoxicillin 500 mg capsule 500 mg PO Q12H 05/10/23 05/15/24 Unknown History aripiprazole 2 mg tablet (Abilify) 2 mg PO DAILY 05/15/24 05/15/24 Unknown History <Rosa Briones PA-C - Last Filed: 08/28/24 22:34> Allergies/Adverse Reactions: Allergies Allergy/AdvReac Type Severity Reaction Status Date / Time No Known Allergies Allergy Mild Verified 08/27/24 14:26 <Rosa Briones PA-C - Last Filed: 08/28/24 22:34> Review of Systems 2 Review of Systems: All systems reviewed & are unremarkable except as noted in HPI and below <Lyle Harrison MD - Last Filed: 08/27/24 21:53> [facility] Past Medical History Medical History: Medical History Screening mammogram, encounter for Vaginal delivery 03/06/09 12/14/10 PTL/PTD/PPROM 9 days in NICU 03/31/15 [facility] 03/31/15 Toxic shock syndrome Acne Anxiety and depression <Rosa Briones PA-C - Last Filed: 08/28/24 22:34> Surgical History Surgical History: Surgical History History of bladder suspension procedure (09/19/22) mid urethral sling/ cystoscopy with Dr. Paez History of robot-assisted laparoscopic hysterectomy (09/19/22) Robotic assisted total laparoscopic hysterectomy with bilateral salpingectomy History of endometrial ablation (03/09/17) History of dilation and curettage (02/23/17) menometrorrhagia, dysmenorrhea, enlarged uterus, possible adenomyosis History of cholecystectomy (~2015) History of tonsillectomy (~2002) <Rosa Briones PA-C - Last Filed: 08/28/24 22:34> Family History Family History: Family History Mother Family history of mental disorder Hypertension Family history of hypothyroidism Family history of gastrointestinal disorder Father Family history of heart disease in male family member before age 55 Acute myocardial infarction Family history of diabetes mellitus in first degree relative Sibling Family history of diabetes mellitus in first degree relative Other Family history of allergic disorder <Rosa Briones PA-C - Last Filed: 08/28/24 22:34> Social History Social History: Social History Smoking status: Never smoker Second hand tobacco smoke exposure: No Alcohol intake: current Drinks per week: 6 Substance use: never Substance use type: does not use Do You Feel Safe in your Home?: Yes Lack of Transportation: No Lack of Food: Never True Current Housing: I Have Housing Concerned About Future Housing: No Difficulty Paying Gas/Electric Bills: No Difficulty Paying for Meds: No Currently Unemployed: No Education: Bachelor's Degree Difficulty w/ Childcare or Family Care: No Living arrangements: with family Additional living arrangements comments: 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 HEAD: normocephalic, atraumatic. EYES: PERRLA/EOMI, conjunctivae clear. NOSE: Normal no drainage EARS:TMS clear with good light reflex. THROAT: Pharynx clear, no exudate. NECK: Supple. No adenopathy, no masses. RESPIRATORY: Airway patent, respirations nonlabored. Clear to auscultation bilaterally, no rales, rhonchi, wheezing. CARDIOVASCULAR: Regular rate and rhythm without murmurs rubs or gallops. ABDOMINAL: Epigastric tenderness to palpation MUSCULOSKELETAL: Moves all extremities. Strength/ROM intact, No edema, No calf tenderness. NEURO: Alert. Cranial nerves II through XII intact. Grossly intact SKIN: Warm, dry. Normal Color <Lyle Harrison MD - Last Filed: 08/27/24 21:53> Course Vital Signs Vital signs: Vital Signs Temperature 98.1 F 08/27/24 15:08 Pulse Rate 69 08/27/24 15:08 Respiratory Rate 16 08/27/24 15:08 Blood Pressure 116/69 08/27/24 15:08 Pulse Oximetry 97 08/27/24 15:08 Oxygen Delivery Room Air 08/27/24 15:08 Temperature 97.8 F 08/27/24 18:42 Pulse Rate 64 08/27/24 19:54 Respiratory Rate 18 08/27/24 19:54 Blood Pressure 116/73 08/27/24 19:54 Pulse Oximetry 98 08/27/24 19:54 Oxygen Delivery Room Air 08/27/24 15:08 <Rosa Briones PA-C - Last Filed: 08/28/24 22:34> Vital Signs Temperature 98.1 F 08/27/24 15:08 Pulse Rate 69 08/27/24 15:08 Respiratory Rate 16 08/27/24 15:08 Blood Pressure 116/69 08/27/24 15:08 Pulse Oximetry 97 08/27/24 15:08 Oxygen Delivery Room Air 08/27/24 15:08 Temperature 97.8 F 08/27/24 18:42 Pulse Rate 64 08/27/24 19:54 Respiratory Rate 18 08/27/24 19:54 Blood Pressure 116/73 08/27/24 19:54 Pulse Oximetry 98 08/27/24 19:54 Oxygen Delivery Room Air 08/27/24 15:08 <Lyle Harrison MD - Last Filed: 08/27/24 21:53> MDM - Abdominal Pain MDM Narrative Medical decision making narrative: 39-year-old female presents emergency department for evaluation for epigastric abdominal pain. Patient is currently afebrile with leukocytosis of 11.4 with normal hemoglobin of 12.5. INR is 1.0. Patient did have a elevated D-dimer at 0.56 CTA showed no evidence of pulmonary embolism. Patient's troponin was negative. Urine was negative for acute infection. Patient did feel improved after the GI cocktail. Patient was updated results of her workup. Patient was discharged home with instructions for omeprazole and bland diet. Suspect alcohol gastritis <Lyle Harrison MD - Last Filed: 08/27/24 21:53> Differential Diagnosis Differential diagnosis: Likely abdominal pain and other <Lyle Harrison MD - Last Filed: 08/27/24 21:53> Lab Data Attestation: I reviewed the patient's lab results. <Lyle Harrison MD - Last Filed: 08/27/24 21:53> Result diagrams: 08/27/24 16:22 08/27/24 16:22 <Rosa Briones PA-C - Last Filed: 08/28/24 22:34> Labs: Lab Results 08/27/24 08/27/24 08/27/24 Range/Units 16:22 16:22 16:29 WBC 11.4 H (4.5-10.0) K/mm3 RBC 4.31 (4.2-5.4) M/mm3 Hgb 12.5 (12.0-15.0) g/dL Hct 38.6 (37.0-47.0) % MCV 89.6 (80-100) fl MCH 29.0 (26-34) pg MCHC 32.4 (32-36) g/dl RDW 14.1 (11.5-14.5) % Plt Count 268 (150-375) k/mm3 MPV 8.9 (7.4-10.4) fl Immature Gran % (Auto) 0.6 H (0-0.5) % Neut % (Auto) 74.6 H (45.5-73.1) % Lymph % (Auto) 13.7 L (18.3-44.2) % [place] % (Auto) 5.2 (2.6-8.5) % Eos % (Auto) 5.5 H (0-4.4) % Baso % (Auto) 0.4 (0.2-1.2) % Lymph # (Auto) 1.57 (0.9-3.2) K/mm3 [place] # (Auto) 0.6 (0.1-0.6) K/mm3 Eos # (Auto) 0.6 H (0-0.3) K/mm3 Baso # (Auto) 0.0 (0.0-0.1) K/mm3 Abs Immat Gran (auto) 0.07 H (0.00-0.031) K/mm3 Absolute Neuts (auto) 8.5 H (1.3-6.7) K/mm3 Absolute Nucleated RBC 0.000 (0.0-0.012) K/mm3 Nucleated RBC % 0.0 (0.0-0.2) % PT 13.5 (11.1-14.7) Seconds INR 1.0 APTT 23.4 (22.3-36.8) Seconds D-Dimer 0.56 H (<0.48) ug/mL Sodium 137 (137-145) mmol/L Potassium 3.4 (3.4-5.0) mmol/L Chloride 100 (98-107) mmol/L Carbon Dioxide 30 (22-30) mmol/L Anion Gap 7 (4-12) mmol/L BUN 15 (7-17) mg/dL Creatinine 0.75 (0.7-1.0) mg/dL Estim Creat Clear Calc 95 ml/min Estimated GFR > 60 (59 - ) Glucose 93 (65-110) mg/dL Calcium 8.5 (8.4-10.2) mg/dL Total Bilirubin 1.6 H (0.2-1.3) mg/dL AST 231 H (14-36) U/L ALT 107 H (6-35) U/L Alkaline Phosphatase 97 (38-126) U/L Troponin I < 0.012 Cancelled (0.000-0.034) ng/mL Total Protein 7.0 (6.3-8.2) g/dL Albumin 4.1 (3.5-5.1) g/dL Lipase 63 (23-300) U/L Urine Color Yellow (Yellow) Urine Appearance Clear (Clear) Urine pH 6.0 (5.0-9.0) Ur Specific [place] 1.022 (1.001-1.035) Urine Protein Trace (Negative) mg/dL Urine Glucose (UA) Negative (Negative) mg/dL Urine Ketones Negative (Negative) mg/dL Ur Blood (Man) 2+ H (Negative) Urine Nitrate Negative (Negative) Urine Bilirubin Negative (Negative) Urine Urobilinogen 1.0 (<2.0) mg/dL Leukocyte Esterase Rfl Negative (Negative) [place]/UL Urine RBC 21-50 H (0-2) /hpf Urine WBC 0-5 (0-3) /hpf Ur Squamous Epith Cells None seen (Few) /hpf Urine Bacteria None seen /hpf Urine Casts 0-2 POC Urine HCG, Qual Negative (Negative) <Rosa Briones PA-C - Last Filed: 08/28/24 22:34> Lab Results 08/27/24 08/27/24 08/27/24 Range/Units 16:22 16:22 16:29 WBC 11.4 H (4.5-10.0) K/mm3 RBC 4.31 (4.2-5.4) M/mm3 Hgb 12.5 (12.0-15.0) g/dL Hct 38.6 (37.0-47.0) % MCV 89.6 (80-100) fl MCH 29.0 (26-34) pg MCHC 32.4 (32-36) g/dl RDW 14.1 (11.5-14.5) % Plt Count 268 (150-375) k/mm3 MPV 8.9 (7.4-10.4) fl Immature Gran % (Auto) 0.6 H (0-0.5) % Neut % (Auto) 74.6 H (45.5-73.1) % Lymph % (Auto) 13.7 L (18.3-44.2) % [place] % (Auto) 5.2 (2.6-8.5) % Eos % (Auto) 5.5 H (0-4.4) % Baso % (Auto) 0.4 (0.2-1.2) % Lymph # (Auto) 1.57 (0.9-3.2) K/mm3 [place] # (Auto) 0.6 (0.1-0.6) K/mm3 Eos # (Auto) 0.6 H (0-0.3) K/mm3 Baso # (Auto) 0.0 (0.0-0.1) K/mm3 Abs Immat Gran (auto) 0.07 H (0.00-0.031) K/mm3 Absolute Neuts (auto) 8.5 H (1.3-6.7) K/mm3 Absolute Nucleated RBC 0.000 (0.0-0.012) K/mm3 Nucleated RBC % 0.0 (0.0-0.2) % PT 13.5 (11.1-14.7) Seconds INR 1.0 APTT 23.4 (22.3-36.8) Seconds D-Dimer 0.56 H (<0.48) ug/mL Sodium 137 (137-145) mmol/L Potassium 3.4 (3.4-5.0) mmol/L Chloride 100 (98-107) mmol/L Carbon Dioxide 30 (22-30) mmol/L Anion Gap 7 (4-12) mmol/L BUN 15 (7-17) mg/dL Creatinine 0.75 (0.7-1.0) mg/dL Estim Creat Clear Calc 95 ml/min Estimated GFR > 60 (59 - ) Glucose 93 (65-110) mg/dL Calcium 8.5 (8.4-10.2) mg/dL Total Bilirubin 1.6 H (0.2-1.3) mg/dL AST 231 H (14-36) U/L ALT 107 H (6-35) U/L Alkaline Phosphatase 97 (38-126) U/L Troponin I < 0.012 Cancelled (0.000-0.034) ng/mL Total Protein 7.0 (6.3-8.2) g/dL Albumin 4.1 (3.5-5.1) g/dL Lipase 63 (23-300) U/L Urine Color Yellow (Yellow) Urine Appearance Clear (Clear) Urine pH 6.0 (5.0-9.0) Ur Specific [place] 1.022 (1.001-1.035) Urine Protein Trace (Negative) mg/dL Urine Glucose (UA) Negative (Negative) mg/dL Urine Ketones Negative (Negative) mg/dL Ur Blood (Man) 2+ H (Negative) Urine Nitrate Negative (Negative) Urine Bilirubin Negative (Negative) Urine Urobilinogen 1.0 (<2.0) mg/dL Leukocyte Esterase Rfl Negative (Negative) [place]/UL Urine RBC 21-50 H (0-2) /hpf Urine WBC 0-5 (0-3) /hpf Ur Squamous Epith Cells None seen (Few) /hpf Urine Bacteria None seen /hpf Urine Casts 0-2 POC Urine HCG, Qual Negative (Negative) <Lyle Harrison MD - Last Filed: 08/27/24 21:53> Imaging Data Radiologist's impression: ITS Impressions Chest CTA 08/27/24 19:35 IMPRESSION: No CT evidence of acute pulmonary embolus. No acute process detected in the chest. Right atrial and right ventricular chamber enlargement. Correlate with cardiac history, and consider cardiology referral. Multiple subcentimeter pulmonary nodules, likely representing benign granulomas. If the patient is at high risk, consider an optional low-dose noncontrast CT of the chest in 12 months. <Rosa Briones PA-C - Last Filed: 08/28/24 22:34> ITS Impressions Chest CTA 08/27/24 19:35 IMPRESSION: No CT evidence of acute pulmonary embolus. No acute process detected in the chest. Right atrial and right ventricular chamber enlargement. Correlate with cardiac history, and consider cardiology referral. Multiple subcentimeter pulmonary nodules, likely representing benign granulomas. If the patient is at high risk, consider an optional low-dose noncontrast CT of the chest in 12 months. <Lyle Harrison MD - Last Filed: 08/27/24 21:53> Critical Care Time Critical Care Time Critical Care Time: No <Rosa Briones PA-C - Last Filed: 08/28/24 22:34> Discharge Plan Discharge Clinical Impression: Gastritis Qualifiers: Gastritis type: unspecified gastritis Chronicity: acute Gastritis bleeding: w ithout bleeding Qualified Code(s): K29.00 - Acute gastritis without bleeding <Rosa Briones PA-C - Last Filed: 08/28/24 22:34> Patient Disposition: Home <Rosa Briones PA-C - Last Filed: 08/28/24 22:34> Condition: Stable <Rosa Briones PA-C - Last Filed: 08/28/24 22:34> Instructions: Antibiotic Form, Diet for Stomach Ulcers and Gastritis (ED), Abdominal Pain (ED) <Rosa Briones PA-C - Last Filed: 08/28/24 22:34> Additional Instructions: Avoid alcohol and NSAIDs. Omeprazole as directed for the next 14 days. Follow a bland diet. Maalox as needed for intermittent epigastric and abdominal pain. Have close follow-up with your primary care physician and additionally you will require follow-up with GI. If you have any worsening symptoms please call or return to the emergency department. <Rosa Briones PA-C - Last Filed: 08/28/24 22:34> Patient Language: Malay <Rosa Briones PA-C - Last Filed: 08/28/24 22:34> Prescriptions: New omeprazole 20 mg capsule,delayed release(DR/EC) 20 mg PO DAILY 14 Days Qty: 14 0RF No Action amoxicillin 500 mg capsule 500 mg PO Q12H fluoxetine [Prozac] 40 mg capsule 40 mg PO DAILY buspirone 10 mg tablet 10 mg PO BID aripiprazole [Abilify] 2 mg tablet 2 mg PO DAILY Hair,Skin and Nails Tablet 1 tablet PO DAILY <Rosa Briones PA-C - Last Filed: 08/28/24 22:34> Follow-up/Referrals: Boris Ziegler MD [Primary Care Provider] - Ze Roberts MD [Physician] - <Rosa Briones PA-C - Last Filed: 08/28/24 22:34>
--- NOTE | 2024-08-27 16:01 | ECG_ITS ---
Test Date: 2024-08-27 16:21:08 Measurements Intervals [place] Rate: 63 P: 57 ID: [id number] QRS: 60 QRSD: 94 T: 50 QT: 438 QTc: 451 Interpretive Statements SINUS RHYTHM INCOMPLETE RIGHT BUNDLE BRANCH BLOCK NONSPECIFIC T-WAVE ABNORMALITY- ANTERIOR LEADS BORDERLINE ECG No previous ECG available for comparison Electronically Signed On 08-27-2024 16:23:55 CDT by Lalit Frederick D.O.
[2024-08-27] MEDS: FAMOTIDINE 20 MG/2 ML VIAL IV PUSH (16:15)
[2024-08-27] MEDS: ONDANSETRON INJ 4 MG/2 ML VIAL IV PUSH (16:15)
[2024-08-27 16:30] LABS: BEDSIDEPREGUCG Negative (Negative)
[2024-08-27 16:34] LABS: Basophils Percent Auto 0.4 % (0.2-1.2); Eosinophils Absolute Auto 0.6 K/mm3 (0-0.3); Eosinophils Percent Auto 5.5 % (0-4.4); Hematocrit 38.6 % (37.0-47.0); Hemoglobin 12.5 g/dL (12.0-15.0); Immature Granulocyte Absolute 0.07 K/mm3 (0.00-0.031); Immature Granulocyte Percent A 0.6 % (0-0.5); Lymphocytes Absolute Auto 1.57 K/mm3 (0.9-3.2); Lymphocytes Percent Auto 13.7 % (18.3-44.2); Mean Corpuscular HGB Conc 32.4 g/dl (32-36); Mean Corpuscular Volume 89.6 fl (80-100); Mean Platelet Volume 8.9 fl (7.4-10.4); Monocytes Absolute Auto 0.6 K/mm3 (0.1-0.6); Monocytes Percent Auto 5.2 % (2.6-8.5); Neutrophils Absolute Auto 8.5 K/mm3 (1.3-6.7); Neutrophils Percent Auto 74.6 % (45.5-73.1); Platelet Count Result 268 k/mm3 (150-375); Red Blood Count 4.31 M/mm3 (4.2-5.4); Red Cell Distribution Width 14.1 % (11.5-14.5); White Blood Count 11.4 K/mm3 (4.5-10.0)
[2024-08-27 16:37] LABS: Add Urine Microscopic? YES; Appearance Urine Clear (Clear); Bacteria Urine None Seen /hpf; Bilirubin Urine Negative (Negative); Blood Urine 2+ (Negative); Color Urine Yellow (Yellow); Glucose Urine UA Negative (Negative); Ketones Urine Negative (Negative); Leukocyte Esterase Ur Negative LEU/UL (Negative); Nitrate Urine Negative (Negative); Non Pathogenic Casts 0-2; Protein Urine Trace mg/dL (Negative); RBC Urine 21-50 /hpf (0-2); Specific Grav Ur 1.022 (1.001-1.035); Squamous Epithelial Cell Urine None Seen /hpf (Few); WBC Urine 0-5 /hpf (0-3)
[2024-08-27 16:45] LABS: Alanine Aminotransferase 107 U/L (6-35); Albumin Level 4.1 g/dL (3.5-5.1); Alkaline Phosphatase 97 U/L (38-126); Anion Gap 7 mmol/L (4-12); Aspartate Amino Transferase 231 U/L (14-36); Bilirubin,Total 1.6 mg/dL (0.2-1.3); Blood Urea Nitrogen 15 mg/dL (7-17); Calcium 8.5 mg/dL (8.4-10.2); Carbon Dioxide 30 mmol/L (22-30); Chloride 100 mmol/L (98-107); Estimated CRCL calculation 95 ml/min; Estimated Glomerular Filt Rate > 60; Glucose 93 mg/dL (65-110); Lipase 63 U/L (23-300); Potassium 3.4 mmol/L (3.4-5.0); Prothrombin Time 13.5 Seconds (11.1-14.7); Sodium 137 mmol/L (137-145)
[2024-08-27 16:46] LABS: Partial Thromboplastin Time 23.4 Seconds (22.3-36.8)
[2024-08-27 16:56] LABS: Troponin I < 0.012 ng/mL (0.000-0.034)
[2024-08-27 17:09] VITALS: BP 118/80; PULSE 68; RESP 16; TEMP 36.6; O2SAT 100
[2024-08-27] MEDS: BELLADONNA ALK/PHENOB ELIX 10 ML, MAG HYDROX/ALUMINUM HYD/SIMETH 30 ML, LIDOCAINE 2% VI... PO (17:32)
[2024-08-27] MEDS: PANTOPRAZOLE SODIUM IV 40 MG VIAL IV PUSH (17:33)
--- OUTSIDE RECORDS SUMMARY | 2024-08-27 17:45 | XMS_ITS | Clinical Summary ---
Author Organization [facility] Address [address] [place] [address] Care Team Providers Care Appliance Counselor Name Role Phone Cole Ziegler MD Primary Care Provider [phone] Allergies No known active allergies Medications busPIRone [...] Problem Noted Date Diagnosed Date Opioid overdose ([facility]) 03/23/2023 Social History Tobacco Use Types Packs/Day Years Used Date Smoking Tobacco: Never Smokeless Tobacco: Never Tobacco Cessation:Counseling Given: Not Answered Alcohol Use Standard Drinks/Week Comments Yes 0 (1 standard drink = 0.6 oz pur e alcohol) Drinks beer everyday. 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2 cm (5' 7 ) 03/23/2023 10:0 0 AM ANIMAL HUMANE AGENT SUPERVISOR Body Mass Index 26.41 03/23/2023 10:00 AM ANIMAL HUMANE AGENT SUPERVISOR Plan of Treatment Health Maintenance Due Date [...] 10:01 AM 03/25/2023 3:36 PM Care Teams Appliance Counselor Relationship Specialty Start Date End Date Cole Ziegler MD [address] [place] [address] PCP - General INTERNAL MEDICINE 03/01/23
--- OUTSIDE RECORDS SUMMARY | 2024-08-27 17:45 | XMS_ITS ---
Author Organization [facility] Address [address] [facility] [address] [place] [address] Care Team Providers Care Unclaimed Property Officer Name Role Phone Toney AQUINO, [facility] Primary Care Provider Shreya Arango Unavailable [phone] Allergies No Known Allergies REASON FOR VISIT 4 week f/u Medications Medication SIG (Take, Route, Frequency, Duration) Notes Start Date End Date Status Sertraline HCl 50 MG 0.5 tablet once a day for 7 days, 1 tablet once a day for 7 days, 1.5 tablets once a day for 16 days Oral for 30 days 08/26/2024 Active busPIRone HCl 15 MG TAKE 1 [...] please, may be DCing next month Active Hydroquinone 4 % External 09/08/2023 Ac tive Tretinoin 0.025 % External 09/08/2023 A ctive Amoxicillin 500 MG Oral 09/08/2023 Active Social History Tobacco Use: Social History [...] to 3 times a week (3 points) Vital Signs Blood pressure systolic 132 mm Hg 08/27/19 25 Blood pressure diastolic 87 mm Hg 025 Heart Rate 63 /min 08/26/2024 Height 67.00 in 08/26/2024 Weight 180 lbs 08/26/2024 BMI 28.19 kg/m2 08/26/2024 Height-cm 170.18 cm 08/26/2024 Weight-kg 81.65 kg 08/26/2024 Encounters Encounter Location Date Provider Diagnosis [facility] [place] [facility] [address] [address] 08/26/2024 Shreya Antonio Major depressive disorder, recurrent, mild F33.0 ; Generalized anxiety disorder F41.1 ; Chronic insomnia F51.04 ; Encounter for screening for depression Z13.31 and Encounter for screening for cardiovascular disorders Z13.6 Assessments Encounter Date Diagnosis (ICD Code) Assessment Notes Treatment Notes Treatment Clinical Notes Section Notes 08/26/2024 Major depressive disorder, recurrent, mild (ICD-10 - F33.0) 08/26/2024 Generalized anxiety disorder (ICD-10 - F41.1) 08/26/2024 Chronic insomnia (ICD-10 - F51.04) 08/26/2024 Encounter for screening for depression (ICD-10 - Z13.31) 08/26/2024 Encounter for screening for cardiovascular disorders (ICD-10 - Z13.6) 08/26/2024 Alea Murillo, female, presents with ongoing depression symptoms [...] transition to assess response and tolerability - Detacker on limiting alcohol intake due to potential interactions with antidepressants and exacerbation of depressive symptoms Plan Of Treatment Medication Medication Name Sig Start Date Stop Date Notes Sertraline HCl 50 MG 0.5 tablet once a d ay for 7 days, 1 tablet once a day for 7 days, 1.5 tablets once a day for 16 days Oral for 30 days 08/26/2024 FLUoxetine HCl 40 MG 2 capsule every morning Oral Once a day busPIRone HCl 15 MG TAKE 1 TABLET BY MOUTH THREE TIMES A DAY FLUoxetine HCl 20 MG 3 capsules once a d ay for 7 days, 2 capsules once a day for 7 days, 1 capsule once a day for 7 days Orally for 21 days 08/26/2024 switching to zoloft ARIPiprazole 2 MG 1 tablet Oral Once a day no 90 day please, zeinab davis be DCing next month Next Appt Details Follow Up: 4 Weeks, Reason: switched to sertraline Provider Name:Shreya roach, 09/20/2024 04:15:00 PM, [facility] [address], [facility] [address], [place], [address], Progress Notes * SARAH MURILLODOB:[birth year] (39 yo F)Acc No.[id number]:08/26/2026 Patient: SARAH GARIBAY Provider: April Antonio :1985 A ge:39 Y S ex:Female Date:08/26/2024 Address:[address] [place], [place] [address] [facility] Pcp:Boris Ziegler MD Subjective: * Chief Complaints: * 4 week f/u * HPI: H istory of Presenting Problem: 38 y/o female, , 3 kids, 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 This note is transcribed using speech recognition software. It is a reflection of a visit with the patient. It might have some inaccuracy, including medication names and transcribing errors, though efforts have been made to correct them. History of Present Illness Sarah Murillo, a female patient with a history of depression, presents with persistent depressive symptoms despite long-term use of Prozac. She reports her condition as about the same with no significant improvement. The patient describes ongoing fatigue, stating she is tired all the time and just wants to sleep constantly. She reports low motivation, lack of interest in activities, and sleep disturbances. These symptoms appear to be chronic, with no specific onset mentioned. The patient's depression seems to be impacting her daily functioning, as evidenced by her lack of motivation and interest in activities. While her anxiety levels are reported as okay with no recent panic attacks, her depressive symptoms remain prominent. The patient denies any current suicidal thoughts. Her appetite is reported as fine with no significant changes noted. Regarding substance use, the patient admits to consuming a few drinks over the weekend. She also mentions a history of significant alcohol use in the past, particularly when she was briefly on Wellbutrin, which didn't mix well with her drinking. The patient's current medication regimen includes long-term use of Prozac, which she feels may have pooped out. She recalls trying Wellbutrin in the past but discontinued it after a short period due to interactions with alcohol use. No other changes in her medical status were reported. P ast Psychiatric Hospitalizations: Previous psychiatric hospitalizations P revious Psychiatric Hospitalization Y es H ow Many Psychiatry Hospitalizations Have You Had in the past? 1 W hen were you last hospitalized? month and year 05/2022 W hat was the cause of your psychiatric hospitalizations? S uicidal attempt Past History of Suicidal attempt H ave you ever attempted suicide in the past?Yes M ethod of suicide attempt O verdose on medication D epression Screening: SEVERO-7 (2018 Edition) F eeling nervous, anxious, or on edge S ever N ot being able to stop or control worrying?Several days W orrying too much about different things S ever T rouble relaxing S B eing so restless that it is hard to sit still S B ecoming easily annoyed or irritable S F eeling afraid as if something awful might happen S I f you checked any problems, how difficult have they made it for you to do your work, take care of things at home, or get along with other people? S omewhat difficult I nterpretation of Total ( 5 to 9) Mild [place]-Suicide Severity Rating Scale: Suicide Risk (CSRS-screener) i n the past one month Have you wished you were or wished you could go to sleep and not wake up? N o i n the past one month Have you actually had any thoughts of killing yourself? N o D epression screening: PHQ-9 L ittle interest or pleasure in doing things?Several days F eeling down, depressed, or hopeless S ever T rouble falling or staying asleep, or sleeping too much S ever F eeling tired or having little energy S ever P oor appetite or overeating M ore than half the days F eeling bad about yourself or that you are a failure, or have let yourself or your family down S T rouble concentrating on things, such as reading the newspaper or watching television S M oving or speaking so slowly that other people could have noticed; or the opposite, being so fidgety or restless that you have been moving around a lot more than usual S T houghts that you would be better off or of hurting yourself in some way N ot at all T otal Score 9 I nterpretation M ild Depression Intervention D epression Screening Findings P aishwarya Luke ollow-Up for Depression M ental health treatment assessment, Patient follow-up to return when and if necessary S uicide Risk Assessment Performed 0 08/26/2024 A dditional Evaluation for Depression P sychiatric interview and evaluation N farrah of the standardized tool used for adult depression screening: P roma Health Questionnaire (PHQ-9) * ROS: P erformance Met: N ormal blood pressure reading documented, follow-up not required ( G8783) Review of Systems General: Positive for fatigue, decreased energy, hypersomnia. Psychiatric: Positive for depression, anhedonia, lack of motivation. Negative for anxiety, panic attacks, suicidal thoughts. Neurological: No concerns reported. Cardiovascular: No concerns reported. Gastrointestinal: No concerns reported. * Medical History: * Surgical History: R emoval of gallbladder (12753) 07/19/2015Tonsilectomy/adenoids 08/26/2002Any surgical history bladder sling 09/19/2022Hysterectomy (99064) 09/19/2022Endometrial ablation (49289) 03/15/2016 * Hospitalization/Major Diagno stic Procedure: * Family History: M other: Anxiety disorder , Depressive disorder , Alcohol abuse . B rother: Alcohol abuse , Depressive disorder , Suicide . * Social History: T obacco Use: T obacco Control (Standard) T obacco use: N onsmoker M igrated Social History: M igrated Social History: Alcohol Intake: Occasional 07/28/2023,Tobacco Years: Never smoker 03/30/2023. D rug/Alcohol: D rugs H ave you used drugs other than those for medical reasons in the past 12 months? N o AUDIT-C (Standard) D id you have a drink containing alcohol in the past year? Y es H ow often did you have six or more drinks on one occasion in the past year? L ess than monthly (1 point) H ow many drinks did you have on a typical day when you were drinking in the past year? 3 or 4 drinks (1 point) H ow often did you have a drink containing alcohol in the past year? 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 Safety issues A re there any firearms in the house? N o Advance Care Planning A re you your own decision-maker Y es D o you have Power of Coffee Maker for Health or Medical? Y es D o you have a power of consumer attorney for health??No D o you have power of consumer attorney for Medical ??No S ocial History: H ousehold M arital Status: M arried N umber of Adults in household: 2 N umber of Children in Household: 3 L evel of Education: [employer] in[employer] * Medications: T akingAmoxicillin 500 MG Capsule Oral Hydroquinone 4 % Cream External Tretinoin 0.025 % Cream External ARIPiprazole 2 MG Tablet 1 tablet Oral Once a day , Notes to Pharmacist: no 90 day please, may be DCing next monthFLUoxetine HCl 40 MG Capsule 2 capsule every morning Oral Once a day busPIRone HCl 15 MG Tablet TAKE 1 TABLET BY MOUTH THREE TIMES A DAY Medication List reviewed and reconciled with the patientTaking Amoxicillin 500 MG Capsule Oral Taking Hydroquinone 4 % Cream External Taking Tretinoin 0.025 % Cream External Taking ARIPiprazole 2 MG Tablet 1 tablet Oral Once a day , Notes to Pharmacist: no 90 day please, may be DCing next monthTaking FLUoxetine HCl 40 MG Capsule 2 capsule every morning Oral Once a day Taking busPIRone HCl 15 MG Tablet TAKE 1 TABLET BY MOUTH THREE TIMES A DAY Medication List reviewed and reconciled with the patient * Allergies: N .K.D.A.no[Allergies Verified] Objective: * Vitals: B P:132/87mm Hg, HR:63/min, Wt:180lbs, Wt-k.65 kg, Ht: 67.00 in, Ht-cm: 170.18 cm, BMI:28.19Index, Body Surface Area: 1.96. * Examination: P sychiatry: M ental Status Examination - Mood: Patient reports being tired all the time and states I just want to sleep all the time. Also mentions no interest in things, no motivation and stuff. - Thought Process: Linear and goal-directed. - Thought Content: Denies current suicidal thoughts when asked. - Cognition: Alert and able to engage in conversation. Assessment: * Assessment: 1. M ajor depressive disorder, recurrent, mild - F33.0 (Primary) 2 . G eneralized anxiety disorder - F41.1 3 . C hronic insomnia - F51.04 4 . E ncounter for screening for depression - Z13.31 5 . E ncounter for screening for cardiovascular disorders - Z13.6 Plan: * Treatment: 2. G eneralized anxiety disorder Continue busPIRone HCl Tablet, 15 MG, TAKE 1 TABLET BY MOUTH THREE TIMES A DAY. 3. O thers Clinical Notes: Sarah Murillo, female, presents with ongoing depression symptoms [...] transition to assess response and tolerability - Detacker on limiting alcohol intake due to potential interactions with antidepressants and exacerbation of depressive symptoms * Procedure Codes: G 8783 NORMAL BP READING DOC F/U NOT [id number] BEHAV ASSMT W/SCORE & DOCD/STAND [id number] TOBACCO [id number] NORMAL BP READING DOC F/U NOT [id number] MOST RECENT SYSTOLIC BP < 140MM [id number] CLIN DEPRESSION SCREEN [id number] MOST RECENT SYSTOLIC BP < 140MM [id number] MOST RECENT DIASTOLIC BP < 90MM [id number] MOST RECENT DIASTOLIC BP < 90MM [id number] VISIT COMPLEXITY INHERENT TO ONGOING CARE RELATED TO A PATIENT'S SINGLE, SERIOUS CONDITION OR A COMPLEX CONDITION * Preventive Medicine: A ssessment and plan reviewed with patient. Educated on diagnoses and recommended treatment options. Educated on risks/benefits of medications, including reason for medications and potential side effects. Alternatives and expected course without treatment reviewed. Education given regarding compliance with medication and expectations regarding adherence to or inconsistent usage of medication. Educated that it can take weeks to see full therapeutic benefits of psychotropic medications and encouraged to trust the process. Educated on good sleep hygiene and importance of adequate sleep on both mental and overall health and well-being. Patient asked appropriate questions, verbalized understanding, and agreed to the recommended treatment and to continue to be followed. Encouraged to reach out if problems, questions, or concerns arise. Educated on suicide hotlines, resources, and safety should suicidal thoughts occur. * Follow Up: 4 Weeks (Reason: switched to sertraline) * Billing Information: * Visit Code: 04301 OFFICE OUTPATIENT VISIT 25 MINUTES DETAILED HISTORY AND EXAM/MODERATE MEDICAL DECISION MAKING. * Procedure Codes: G8783 NORMAL BP READING DOC F/U NOT RQR. 09018 BEHAV ASSMT W/SCORE & DOCD/STAND INSTRUMENT. 1036F TOBACCO NON-USER. G8783 NORMAL BP READING DOC F/U NOT RQR. G8752 MOST RECENT SYSTOLIC BP < 140MM HG. G8431 CLIN DEPRESSION SCREEN DOC. G8752 MOST RECENT SYSTOLIC BP < 140MM HG. G8754 MOST RECENT DIASTOLIC BP < 90MM HG. G8754 MOST RECENT DIASTOLIC BP < 90MM HG. G2211 VISIT COMPLEXITY INHERENT TO ONGOING CARE RELATED TO A PATIENT'S SINGLE, SERIOUS CONDITION OR A COMPLEX CONDITION. * Sign off status: Completed true * Provider: April Antonio Date: 0 08/26/2024 Generated for Maria Ines Mijares/Hortencia on: 0 08/27/2024 03:47 PM CDT History and Physical Notes * HPI (History of Present Illness) Category Sub-Category Detail Notes Category Not es Past Psychiatric Hospitalizations Previous psychiatric hospitalizations Previous Psychiatric Hospitalization: Yes How Many Psychiatry Hospitalizations Have You Had in the past?: 1 When were you last hospitalized? month a nd year: 03/2023 What was the cause of your psychiatric h ospitalizations?: Suicidal attempt Past History of Suicidal attempt Have yo u ever attempted suicide in the past: Yes Method of suicide attempt: Overdose on medication Depression screening PHQ-9 Little inte rest or pleasure in doing things: Several days Feeling down, depressed, or hopeless: Se veral days Trouble falling or staying asleep, or sl eeping too much: Several days Feeling tired or having little energy: S everal days Poor appetite or overeating: More than h detention the days Feeling bad about yourself o r that you are a failure, or have let yourself or your family down: Several days Trouble concentrating on thi ngs, such as reading the newspaper or watching television: Several days Moving or speaking so slowly that other people could have noticed; or the opposite, being so fidgety or restless that you have been moving around a lot more than usual: Several days Thoughts that you would be b karen off or of hurting yourself in some way: Not at all Total Score: 9 Interpretation: Mild Depression Intervention Depression Screening Findings: P aishwarya Follow-Up for Depression: [facility] treatment assessment, Patient follow-up to return when and if necessary Suicide Risk Assessment Performed: 08/26 Additional Evaluation for Depression: Ps ychiatric interview and evaluation Name of the standardized too l used for adult depression screening:: Patient Health Questionnaire (PHQ-9) Depression Screening SEVERO-7 (2018 Edition) Feelin g nervous, anxious, or on edge: Several days Not being able to stop or control worryi ng: Several days Worrying too much about different things : Several days Trouble relaxing: Several days Being so restless that it is hard to sit still: Several days Becoming easily annoyed or irritable: Se veral days Feeling afraid as if something awful celina ht happen: Several days If you checked any problems, how difficult have they made it for you to do your work, take care of things at home, or get along with other people?: Somewhat difficult Interpretation of Total: (5 to 9) Mild [place]-Suicide Severity Rating Scale Suicide Risk (CSRS-screener) in the past one month Have you wished you were or wished you could go to sleep and not wake up?: No in the past one month Have y ou actually had any thoughts of killing yourself?: No Examination Category Sub-Category Detail Notes Category Not es Psychiatry Mental Status Examination - Mood: Patient reports being tired all the time and states I just want to sleep all the time. Also mentions no interest in things, no motivation and stuff. - Thought Process: Linear and goal-directed. - Thought Content: Denies current suicidal thoughts when asked. - Cognition: Alert and able to engage in conversation.
--- OUTSIDE RECORDS SUMMARY | 2024-08-27 17:45 | XMS_ITS | Clinical Summary ---
Author Organization [facility] Address [address] [place] [address] Care Team Providers Care Donor Recruitment Manager Name Role Phone Unavailable Primary Care Provider Unavailabl e Source Comments [facility] [address] [facility],non-owned Affiliates and Associated Physician Practices is amultiple site organization consisting of ambulatory clinics and hospital sitesin [place], [place], [place] and [place]. This disclosure is being madepursuant to the Care Everywhere program and may not contain all information available regarding this patient. Last updated 18.[facility] [address] [facility] Allergies No known active allergies Medications * [...] documented US PNC with Dr. Ocampo at [place], Transferred by Dr. 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
[2024-08-27 18:00] VITALS: BP 122/75; PULSE 68; RESP 16; TEMP 36.6; O2SAT 99
[2024-08-27 18:16] LABS: D Dimer 0.56 ug/mL (<0.48)
[2024-08-27 18:42] VITALS: BP 122/78; PULSE 64; RESP 16; TEMP 36.6; O2SAT 98
[2024-08-27 19:54] VITALS: BP 116/73; PULSE 64; RESP 18; O2SAT 98
== END 2024-08-27 20:03 | disposition home or self-care (01) ==
PROVIDERS: Emergency Medicine; Physician Assistant; Emergency Provider Emergency Medicine; PCP Internal Medicine
DX: K29.00 Acute gastritis without bleeding (principal); F41.9 Anxiety disorder, unspecified; F32.A Depression, unspecified
CPT/HCPCS: 36415; 71275; 80053; 81001; 81025; 83690; 84484; 85025; 85380; 85610; 85730; 93005; 96374; 96375; 99284; A9270; J2405; J2470; Q9967

== ENCOUNTER 2024-08-28 15:43 | Outpatient (CLI) | payer OTHER, SELFPAY ==
[2024-08-28 16:05] LABS: Hematocrit 38.3 % (35.0-49.0); Hemoglobin 12.3 g/dL (12.0-15.0); Mean Corpuscular HGB Conc 32.1 g/dL (32-36); Mean Corpuscular Hemoglobin 28.9 pg (27.0-31.0); Mean Corpuscular Volume 90.1 fL (78.0-102.0); Platelet Count Result 256 K/mm3 (150-420); Red Blood Count 4.25 M/mm3 (4.20-5.40); Red Cell Distribution Width 14.1 % (11.6-14.4); White Blood Count 8.1 K/mm3 (4.8-10.8)
--- OUTSIDE RECORDS SUMMARY | 2024-08-28 16:25 | XMS_ITS | Patient Health Record ---
Author Organization [facility] [employer] [facility] Address [address] [place] [address] Care Team Providers Care Data Entry Representative Name Role Phone Toney AQUINO, [facility] Primary Care Provider Unavaila Shreya Coppola Unavailable [phone] Sariah Maravilla Unavailable [phone] Migration, Provider Unavailable Unavailable Allergies No Known [...] Risk Notes Problem Mild recurrent major depression (13484744) Major depressive disorder, recurrent, mild (F33.0) 4 Active confirmed Problem Generalized anxiety disorder (03264599) Generalized anxiety disorder (F41.1) 4 Active confirmed Problem Chronic insomnia (916580127) Chronic insomnia (F51.04) Active confirmed Problem Panic disorder (930246342) Panic attacks (F41.0) Active confirmed Vital Signs Heart Rate 63 /min 08/26/2024 Blood pressure diastolic 87 mm Hg 08/26/2024 Height-cm 170.18 cm 08/26/2024 Weight-kg 81.65 kg 08/26/2024 Height 67.00 in 08/26/2024 Blood pressure systolic 132 mm Hg 08/26/2024 Weight 180 lbs 08/26/2024 BMI 28.19 kg/m2 08/26/2024 Encounters Encounter Location Date Provider Diagnosis [facility]9 [facility] [address] [address] 09/08/2023 Sariah Maravilla Generalized anxiety disorder F41.1 ; Major depressive disorder, recurrent, mild F33.0 ; Alcohol use, unspecified, uncomplicated F10.90 ; Psychophysiologic insomnia F51.04 and Panic disorder [episodic paroxysmal anxiety] without agoraphobia F41.0 [facility] [address] [facility] [address] [facility] [address] [place] [address] 11/20/2023 Sariah Maravilla Major depressive disorder, recurrent, mild F33.0 ; Generalized anxiety disorder F41.1 ; Chronic insomnia F51.04 ; Panic attacks F41.0 and Current drinker Z78.9 [facility] [address] [facility] [address] [facility] [address] [place] [address] 01/22/2024 Sariah Maravilla Major depressive disorder, recurrent, mild F33.0 ; Generalized anxiety disorder F41.1 ; Chronic insomnia F51.04 ; Panic attacks F41.0 and Current drinker Z78.[address] [address] 04/22/2024 Shreya Antonio Major depressive disorder, recurrent, mild F33.0 ; Generalized anxiety disorder F41.1 ; Chronic insomnia F51.04 and Panic attacks F41.[address] [address] 07/22/2024 Shreya Antonio Encounter for screen ing for depression Z13.31 ; Major depressive disorder, recurrent, mild F33.0 ; Generalized anxiety disorder F41.1 ; Chronic insomnia F51.04 and Panic attacks F41.[address] [address] 08/26/2024 Shreya Antonio Major depressive disorder, recurrent, mild F33.0 ; Generalized anxiety disorder F41.1 ; Chronic insomnia F51.04 ; Encounter for screening for depression Z13.31 and Encounter for screening for cardiovascular disorders Z13.[address] [address] 09/16/2023 Provider Migration [address] [address] 09/17/2023 Provider Migration [address] [address] 05/14/2024 Shreya Antonio [address] [address] 05/14/2024 Shreya Antonio Assessments Encounter Date Diagnosis [...] and the loss of her brother on [place] 13 yrs ago. Feels she is coping [...] and the loss of her brother on [place] 13 yrs ago. Feels she is coping [...] and the loss of her brother on [place] 13 yrs ago. 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 Support Specialist on limiting alcohol intake due to potential interactions with antidepressants and exacerbation of depressive symptoms Plan Of Treatment Next Appt Details Provider Name:Shreya roach, 09/20/2024 04:15:00 PM, [address] [facility] [address], [place], [address], Insurance Providers Payer Name Payer Address Payer Phone Subscriber Number Group Number Insured Name Patient Relationship to Insured Coverage Start Date Coverage End Date Aetna Pos [address] [place] [address] [id number] JESÚS OZUNA Spouse - patient is the spouse of the insured Medical (General) History Medical History History ICD Code Problems: Chronic insomnia Mild recurrent major depression Past Psychiatric History: Anxiety Disord er undefined Surgical History Surgery Date(Month/Year) Removal of gallbladder (06989) 6 Tonsilectomy/adenoids 08/26/2002 Any surgical history bladder sling 09/19 Hysterectomy (39130) 09/19/2022 Endometrial ablation (79862) 03/15/2016
--- OUTSIDE RECORDS SUMMARY | 2024-08-28 16:25 | XMS_ITS | Clinical Summary ---
Author Organization [facility] Address [address] [place] [address] Care Team Providers Care Muffle Operator Name Role Phone Unavailable Primary Care Provider Unavailabl e Source Comments [facility],non-owned Affiliates and Associated Physician Practices is amultiple site organization consisting of ambulatory clinics and hospital sitesin [place], [place], [place] and [place]. This disclosure is being madepursuant to the Care Everywhere program and may not contain all information available regarding this patient. Last updated 18.[facility] Allergies No known active allergies Medications * [...] documented US PNC with Dr. Ocampo at [place], Transferred by Dr. Simpson Blood type: A+/I/-/-, [...] on file Legal Sex Female 12:06 PM WHISKEY REGAUGER Gender Identity Not on file Sexual Orientation [...]
--- OUTSIDE RECORDS SUMMARY | 2024-08-28 16:26 | XMS_ITS | Clinical Summary ---
Author Organization [facility] Address [address] [place] [address] Care Team Providers Care Roller Billet Mill Name Role Phone Cole Ziegler MD Primary Care Provider [phone] Allergies No known active allergies Medications busPIRone [...] Problem Noted Date Diagnosed Date Opioid overdose ([facility]) 03/23/2023 Social History Tobacco Use Types Packs/Day Years Used Date Smoking Tobacco: Never Smokeless Tobacco: Never Tobacco Cessation:Counseling Given: Not Answered Alcohol Use Standard Drinks/Week Comments Yes 0 (1 standard drink = 0.6 oz pur e alcohol) Drinks beer everyday. Comments Unknown Sex and Gender Information Value Date Recorded Sex Assigned at Not on file Legal Sex Female 5:00 AM HUMAN RESOURCES CLERK Gender Identity Not on file Sexual Orientation Not on file Last Filed Vital Signs Vital Sign Reading Time Taken Comments Blood Pressure 113/73 03/25/2023 7:41 AM HUMAN RESOURCES CLERK Pulse 62 03/25/2023 7:41 AM HUMAN RESOURCES CLERK Temperature 36.5 C (97.7 F) 03/25/2023 7:41 AM HUMAN RESOURCES CLERK Respiratory Rate 20 03/25/2023 7:41 AM HUMAN RESOURCES CLERK Oxygen Saturation 100% 03/25/2023 7:41 AM HUMAN RESOURCES CLERK Inhaled Oxygen Concentration - - Weight 76.5 kg (168 lb 10.4 oz) 03/25/2023 5:00 AM HUMAN RESOURCES CLERK Height 170.2 cm (5' 7 ) 03/23/2023 10:0 0 AM HUMAN RESOURCES CLERK Body Mass Index 26.41 03/23/2023 10:00 AM HUMAN RESOURCES CLERK Plan of Treatment Health Maintenance Due Date [...] 10:01 AM 03/25/2023 3:36 PM Care Teams Roller Billet Mill Relationship Specialty Start Date End Date Cole Ziegler MD [address] [place] [address] PCP - General INTERNAL MEDICINE 03/01/23
--- OUTSIDE RECORDS SUMMARY | 2024-08-28 16:26 | XMS_ITS | Clinical Summary ---
Author Organization [facility] Care Address [address] [place] [address] Phone Care Team Providers Care Stone Planer Name Role Phone Boris Ziegler MD Primary Care Provider [phone] Allergies No known active allergies Medications busPIRone [...] on file Legal Sex Female 8:09 AM AMORTIZATION CLERK Gender Identity Female 06/18/2021 11:42 AM AMORTIZATION CLERK Sexual Orientation Not on file Obstetrics History Last Filed Vital Signs Vital Sign Reading Time Taken Comments Blood Pressure 132/84 04/20/2024 2:18 PM AMORTIZATION CLERK Pulse 76 04/20/2024 2:18 PM AMORTIZATION CLERK Temperature 37 C (98.6 F) 04/20/2024 2:18 PM AMORTIZATION CLERK Respiratory Rate 18 04/20/2024 2:18 PM AMORTIZATION CLERK Oxygen Saturation 99% 04/20/2024 2:18 PM AMORTIZATION CLERK Inhaled Oxygen Concentration - - Weight 83 kg (183 lb) 04/20/2024 2:18 PM AMORTIZATION CLERK Height 170.2 cm (5' 7 ) 04/20/2024 2:18 PM AMORTIZATION CLERK Body Mass Index 28.66 04/20/2024 2:18 PM AMORTIZATION CLERK Plan of Treatment Health Maintenance Due [...] patient's age to complete this topic Insurance [facility]6 [employer] [facility] HMO [facility] Care Teams Stone Planer Relationship Specialty Start Date End Date Boris Ziegler MD PCP - General Internal Medicine 06/18/21
--- OUTSIDE RECORDS SUMMARY | 2024-08-28 16:26 | XMS_ITS | Referral Summary ---
Author Organization [facility] Virtual Care Address [address] [place] [address] Phone Care Team Providers Care Home Office Representative Name Role Phone Boris Ziegler MD Primary Care Provider [phone] Allergies No known active allergies Medications busPIRone [...] on file Legal Sex Female 8:09 AM ADOPTION AGENT Gender Identity Female 06/18/2021 11:42 AM ADOPTION AGENT Sexual Orientation Not on file Last Filed Vital Signs Vital Sign Reading Time Taken Comments Blood Pressure 132/84 04/20/2024 2:18 PM ADOPTION AGENT Pulse 76 04/20/2024 2:18 PM ADOPTION AGENT Temperature 37 C (98.6 F) 04/20/2024 2:18 PM ADOPTION AGENT Respiratory Rate 18 04/20/2024 2:18 PM ADOPTION AGENT Oxygen Saturation 99% 04/20/2024 2:18 PM ADOPTION AGENT Inhaled Oxygen Concentration - - Weight 83 kg (183 lb) 04/20/2024 2:18 PM ADOPTION AGENT Height 170.2 cm (5' 7 ) 04/20/2024 2:18 PM ADOPTION AGENT Body Mass Index 28.66 04/20/2024 2:18 PM ADOPTION AGENT Plan of Treatment Not on file [facility] Care Teams Home Office Representative Relationship Specialty Start Date End Date Boris Ziegler MD PCP - General Internal Medicine 06/18/21
[2024-08-30 06:07] LABS: Alanine Aminotransferase 181 U/L (14-59); Alkaline Phosphatase 134 U/L (46-116); Amylase 85 U/L (25-115); Aspartate Amino Transferase 106 U/L (15-37); Bilirubin,Total 1.1 mg/dL (0.00-1.00); GGT 91 U/L (5-55); Lipase 34 U/L (16-77); Total Protein 6.4 g/dL (6.4-8.2)
[2024-08-30 08:03] LABS: Hepatitis B Surface Antigen NON-REACTIVE (NON-REACTIVE)
[2024-08-30 08:08] LABS: Hepatitis A Antibody IgM NON-REACTIVE (NON-REACTIVE); Hepatitis B Core Antibody NON-REACTIVE (NON-REACTIVE); Hepatitis C Virus Antibody NON-REACTIVE (NON-REACTIVE)
[2024-08-30 11:19] LABS: Albumin Level 3.7 g/dL (3.4-5.0); Anion Gap 7 mmol/L (4-12); Blood Urea Nitrogen 11 mg/dL (7-18); Calcium 8.7 mg/dL (8.5-10.1); Carbon Dioxide 31 mmol/L (21-32); Chloride 104 mmol/L (98-108); Estimated Glomerular Filt Rate > 60; Glucose 91 mg/dL (70-99); Osmolality Calculated 293 mOsm/kg (285-295); Sodium 142 mmol/L (136-145)
== END 2024-08-28 15:44 | disposition home or self-care (01) ==
LOC: CHSLAB 15:44
PROVIDERS: PCP Internal Medicine; Visit Provider Internal Medicine
DX: R10.9 Unspecified abdominal pain (principal); R94.5 Abnormal results of liver function studies
CPT/HCPCS: 36415; 80053; 80074; 80321; 82150; 82977; 83690; 85027; G0480

== ENCOUNTER 2024-09-05 16:37 | Outpatient (CLI) | payer OTHER, SELFPAY ==
--- OUTSIDE RECORDS SUMMARY | 2024-09-05 16:42 | XMS_ITS | Patient Health Record ---
Author Organization [facility] [employer] [facility] Address [address] [place] [address] Care Team Providers Care Wagon Driver Name Role Phone Toney AQUINO, [facility] Primary Care Provider Unavaila Shreya Coppola Unavailable [phone] Sariah Maravilla Unavailable [phone] Migration, Provider Unavailable Unavailable Allergies No Known [...] Risk Notes Problem Mild recurrent major depression (32113067) Major depressive disorder, recurrent, mild (F33.0) 4 Active confirmed Problem Generalized anxiety disorder (49623903) Generalized anxiety disorder (F41.1) 4 Active confirmed Problem Chronic insomnia (577302963) Chronic insomnia (F51.04) Active confirmed Problem Panic disorder (832396863) Panic attacks (F41.0) Active confirmed Vital Signs Heart Rate 63 /min 08/26/2024 Blood pressure diastolic 87 mm Hg 08/26/2024 Height-cm 170.18 cm 08/26/2024 Weight-kg 81.65 kg 08/26/2024 Height 67.00 in 08/26/2024 Blood pressure systolic 132 mm Hg 08/26/2024 Weight 180 lbs 08/26/2024 BMI 28.19 kg/m2 08/26/2024 Encounters Encounter Location Date Provider Diagnosis [facility] [address] [address] 09/08/2023 Sariah Maravilla Generalized anxiety disorder F41.1 ; Major depressive disorder, recurrent, mild F33.0 ; Alcohol use, unspecified, uncomplicated F10.90 ; Psychophysiologic insomnia F51.04 and Panic disorder [episodic paroxysmal anxiety] without agoraphobia F41.0 [facility] [address] [facility] [address] [facility] [address] [place] [address] 11/20/2023 Sariah Maravilla Major depressive disorder, recurrent, mild F33.0 ; Generalized anxiety disorder F41.1 ; Chronic insomnia F51.04 ; Panic attacks F41.0 and Current drinker Z78.9 [facility] [address] [facility] 162 [facility] [address] [place] [address] 01/22/2024 Sariah Maravilla Major depressive disorder, recurrent, mild F33.0 ; Generalized anxiety disorder F41.1 ; Chronic insomnia F51.04 ; Panic attacks F41.0 and Current drinker Z78.[address] [address] 04/22/2024 Shreya Antonio Major depressive disorder, recurrent, mild F33.0 ; Generalized anxiety disorder F41.1 ; Chronic insomnia F51.04 and Panic attacks F41.[address] [address] 07/22/2024 Shreya Antonio Encounter for screen ing for depression Z13.31 ; Major depressive disorder, recurrent, mild F33.0 ; Generalized anxiety disorder F41.1 ; Chronic insomnia F51.04 and Panic attacks F41.[address] [address] 08/26/2024 Shreya Antonio Major depressive disorder, recurrent, mild F33.0 ; Generalized anxiety disorder F41.1 ; Chronic insomnia F51.04 ; Encounter for screening for depression Z13.31 and Encounter for screening for cardiovascular disorders Z13.[address] [address] 09/16/2023 Provider Migration [address] [address] 09/17/2023 Provider Migration [address] [address] 05/14/2024 Shreya Antonio [address] [address] 05/14/2024 Shreya Antonio Assessments Encounter Date Diagnosis [...] and the loss of her brother on [place] 13 yrs ago. Feels she is coping [...] and the loss of her brother on [place] 13 yrs ago. Feels she is coping [...] and the loss of her brother on [place] 13 yrs ago. Feels she is coping [...] transition to assess response and tolerability - [employer] Open Stack Administrator on limiting alcohol intake due to potential interactions with antidepressants and exacerbation of depressive symptoms Plan Of Treatment Next Appt Details Provider Name:Shreya roach, 09/20/2024 04:15:00 PM, [address] [facility] [address], [place], [address], Insurance Providers Payer Name Payer Address Payer Phone Subscriber Number Group Number Insured Name Patient Relationship to Insured Coverage Start Date Coverage End Date Aetna Pos [address] [place] [address] [id number] JESÚS OZUNA Spouse - patient is the spouse of the insured Medical (General) History Medical History History ICD Code Problems: Chronic insomnia Mild recurrent major depression Past Psychiatric History: Anxiety Disord er undefined Surgical History Surgery Date(Month/Year) Removal of gallbladder (43169) 6 Tonsilectomy/adenoids 08/26/2002 Any surgical history bladder sling 09/19 Hysterectomy (93905) 09/19/2022 Endometrial ablation (54283) 03/15/2016
--- OUTSIDE RECORDS SUMMARY | 2024-09-05 16:42 | XMS_ITS | Clinical Summary ---
Author Organization [facility] Address [address] [place] [address] Care Team Providers Care Letter Stamping Machine Operator Name Role Phone Cole Ziegler MD Primary Care Provider [phone] Allergies No known active allergies Medications busPIRone [...] Problem Noted Date Diagnosed Date Opioid overdose ([facility]) 03/23/2023 Social History Tobacco Use Types Packs/Day Years Used Date Smoking Tobacco: Never Smokeless Tobacco: Never Tobacco Cessation:Counseling Given: Not Answered Alcohol Use Standard Drinks/Week Comments Yes 0 (1 standard drink = 0.6 oz pur e alcohol) Drinks beer everyday. Comments Unknown Sex and Gender Information Value Date Recorded Sex Assigned at Not on file Legal Sex Female 5:00 AM STOCKING INSPECTOR Gender Identity Not on file Sexual Orientation Not on file Last Filed Vital Signs Vital Sign Reading Time Taken Comments Blood Pressure 113/73 03/25/2023 7:41 AM STOCKING INSPECTOR Pulse 62 03/25/2023 7:41 AM STOCKING INSPECTOR Temperature 36.5 C (97.7 F) 03/25/2023 7:41 AM STOCKING INSPECTOR Respiratory Rate 20 03/25/2023 7:41 AM STOCKING INSPECTOR Oxygen Saturation 100% 03/25/2023 7:41 AM STOCKING INSPECTOR Inhaled Oxygen Concentration - - Weight 76.5 kg (168 lb 10.4 oz) 03/25/2023 5:00 AM STOCKING INSPECTOR Height 170.2 cm (5' 7 ) 03/23/2023 10:0 0 AM STOCKING INSPECTOR Body Mass Index 26.41 03/23/2023 10:00 AM STOCKING INSPECTOR Plan of Treatment Health Maintenance Due Date [...] 10:01 AM 03/25/2023 3:36 PM Care Teams Letter Stamping Machine Operator Relationship Specialty Start Date End Date Cole Ziegler MD [address] [place] [address] PCP - General INTERNAL MEDICINE 03/01/23
--- OUTSIDE RECORDS SUMMARY | 2024-09-05 16:42 | XMS_ITS | Clinical Summary ---
Author Organization [facility] Virtual Care Address [address] [place] [phone] Phone Care Team Providers Care Theatrical Trouper Name Role Phone Boris Bhatia MD Primary Care Provider [phone] Allergies No known active allergies Medications busPIRone [...] Active Active Problems No known active problems Encounters Date Type Department Care Team Description 09/03/2024 3:00 PM CDT Ancillary Procedure [facility] Cardiology [address] [facility] [address] [place] [address] Cardiomegaly from Last 3 Months Social History Tobacco Use Types Packs/Day Years Used Date Smoking Tobacco: Never Assessed Comments Unknown Sex and Gender Information Value Date Recorded Sex Assigned at Not on file Legal Sex Female 8:09 AM DRIVER GUARD Gender Identity Female 06/18/2021 11:42 AM DRIVER GUARD Sexual Orientation Not on file Obstetrics History Last Filed Vital Signs Vital Sign Reading Time Taken Comments Blood Pressure 132/84 04/20/2024 2:18 PM DRIVER GUARD Pulse 76 04/20/2024 2:18 PM DRIVER GUARD Temperature 37 C (98.6 F) 04/20/2024 2:18 PM DRIVER GUARD Respiratory Rate 18 04/20/2024 2:18 PM DRIVER GUARD Oxygen Saturation 99% 04/20/2024 2:18 PM DRIVER GUARD Inhaled Oxygen Concentration - - Weight 83 kg (183 lb) 04/20/2024 2:18 PM DRIVER GUARD Height 170.2 cm (5' 7 ) 04/20/2024 2:18 PM DRIVER GUARD Body Mass Index 28.66 04/20/2024 2:18 PM DRIVER GUARD Plan of Treatment Health Maintenance Due Date Last Done Comments Breast Cancer Screening-Mammogram 1985 Cervical Cancer Screening 1985 Depression Screening 1985 Hepatitis C Screening 1985 Varicella Vaccines (1 of 2 - 13+ 2-dose series) 07/06/1996 Hepatitis B Screening 07/06/2001 Regular Well Visit/Exam 18-64 07/06/2001 Covid-19 Vaccine (2023-2 5 season) 2023 03/20/2021, 05/25/2020, 04/27/2020 DTaP/Tdap/Td Vaccine (2 - Td or Tdap) 04/01/2025 04/01/2015 Influenza Vaccine Completed 02/02/2024, 02/09/2023, 01/30/2012 HPV Vaccines Aged Out No longer eligi ble based on patient's age to complete this topic Pneumococcal vaccine <65 Aged Out No longer eligible based on patient's age to complete this topic Procedures Procedure Name Priority Date/Time Associated Diagnosis Comments TRANSTHORACIC ECHO (TTE) COMPLETE W DOPPLER/CF WO CONTRAST Routine 09/03/2024 1:08 PM CDT Cardiomegaly from Last 3 Months Results * TRANSTHORACIC ECHO (TTE) COMPLETE W DOPPLER/CF WO CONTRAST (09/03/2024 1:08 PM CDT) Estimated EF 65-70 % CONS SCIMAGE EF Mod BP 67 % CONS SCIMAGE Anatomical Region Laterality Modality Ultrasound 09/03/2024 12:5 3 PM CDT Narrative 09/03/2024 4:40 PM CDT [facility] Cardiology [address], [place] [address] [address] [facility] [address], [place] [address] [phone] P:[phone] Echocardiographic Report Patient Name: AMENA MURILLO : 1985 Study Date: 09/03/2024 12:53:29 PM Gender: F Tech: [facility] Provider: BORIS BHATIA Height(Cm): 170 BSA: 1.98 Weight(Kg): 83 Heart Rate: 70 BP: 126 / 88 Quality: Good Order Provider: BORIS BHATIA PROCEDURES: Echocardiographic Report: Transthoracic echocardiogram with complete 2D, M-Mode, and color Doppler examination. With Strain Analysis. INDICATIONS: I51.7 Cardiomegaly. MEASUREMENTS: 2D/MM Value Range Doppler Value Range EF Mod BP 67 % [ 54 - 74 ] ANTHONY Vmax 2.63 cm2 [ 2.00 - 4.00 ] EF Teich MM 70 % [ 54 - 74 ] AV Mean PG 6 mmHg Estimated EF 65-70 % AV Peak Shivam 1.59 m/s [ 1.00 - 1.70 ] LVIDd 2D 4.43 cm [ 3.80 - 5.20 ] AV Peak PG 10 mmHg LVIDd MM 5.24 cm [ 3.80 - 5.20 ] AV VTI 32.13 cm LVIDs 2D 3.15 cm [ 2.20 - 3.50 ] LVOT Diam 2.05 cm [ 1.70 - 2.10 ] LVIDs MM 3.16 cm [ 2.20 - 3.50 ] LVOT Peak Shivam 1.27 m/s [ 0.70 - 1.10 ] LVPWd 2D 0.74 cm [ 0.60 - 0.90 ] LVOT VTI 26.39 cm LVPWd MM 0.76 cm [ 0.60 - 0.90 ] MV E Peak Shivam 0.82 m/s [ 0.60 - 1.30 ] IVSd 2D 0.77 cm [ 0.60 - 0.90 ] MV A Peak Shivam 0.41 m/s [ 1.00 - 1.20 ] IVSd MM 0.84 cm [ 0.60 - 0.90 ] MV Decel Time 260 msec [ 104 - 258 ] LA Dimension MM 3.24 cm [ 2.70 - 3.80 ] PV Peak Shivam 0.96 m/s [ 0.40 - 0.80 ] AoR Diam MM 3.03 cm [ 2.70 - 3.70 ] TR Peak Shivam 2.00 m/s [ 1.00 - 2.80 ] LA Volume Index 24 cc/m2 [ 16 - 34 ] TR Peak PG 16 mmHg RVSP 24.00 mmHg [ 10.00 - 36.00 ] Lateral E` 0.17 m/s [ 0.10 - 0.15 ] E` 0.14 m/s E/E` 5 2D/MM Value Range Doppler Value Range - FINDINGS: Interpretation Site: Exam was interpreted at [facility]. Left Ventricle: Normal left ventricular systolic function. No focal wall motion abnormalities. Normal left ventricular size. Normal left ventricular wall thickness. Normal left ventricular diastolic function. Ejection fraction is measured at 67 %. Ejection Fraction is visually estimated to be 65-70 %. Global Longitudinal Strain is -22 %. GLS is normal. Right Ventricle: Normal right ventricular size. Normal right ventricular systolic function. Left Atrium: The left atrium is normal in size. Right Atrium: The right atrium is normal in size. Atrial Septum: Normal atrial septum. Mitral Valve: Normal appearance of the mitral valve. Mild mitral valve regurgitation. There is no hemodynamically significant mitral stenosis by Doppler. Aortic Valve: Normal appearance of the aortic valve. No evidence of hemodynamically significant aortic stenosis by Doppler. Trileaflet aortic valve. Trace aortic valve regurgitation. Tricuspid Valve: Normal appearance of the tricuspid valve. Normal right ventricular systolic pressure. Estimated peak RVSP is 24 mmHg. Mild tricuspid regurgitation. Pulmonic Valve: Normal appearance of the pulmonic valve. No pulmonic stenosis. Trivial regurgitation in the pulmonic valve. Pericardium: Normal pericardium with no significant pericardial effusion. Aorta: Normal aortic root. IVC: Normal size and normal respiratory collapse consistent with normal right atrial pressure (<5 mmHg). CONCLUSIONS: Normal left ventricular systolic function. No focal wall motion abnormalities. Normal left ventricular size. Normal left ventricular wall thickness. Normal left ventricular diastolic function. Ejection fraction is measured at 67 %. Ejection Fraction is visually estimated to be 65-70 %. Global Longitudinal Strain is -22 %. GLS is normal. Mild mitral valve regurgitation. Normal right ventricular systolic pressure. Mild tricuspid regurgitation. Normal sinus rhythm. Electronically Signed By: Caleb Quiles MD 09/03/2024 4:39:09 PM CDT Procedure Note Caleb Quiles MD - 09/03/2024 [facility] Cardiology [address] [facility] [address] [address] [address] [facility] [id number] [address] P:[phone] P:[phone] Echocardiographic Report Patient Name: AMENA MURILLO : 1985 Study Date: 09/03/2024 12:53:29 PM Gender: F Tech: Ref Provider: BORIS BHATIA Height(Cm): 170 BSA: 1.98 Weight(Kg): 83 Heart Rate: 70 BP: 126 / 88 Quality: Good Order Provider: BORIS BHATIA PROCEDURES: Echocardiographic Report: Transthoracic echocardiogram with complete 2D, M-Mode, and color Dopplerexamination. With Strain Analysis. INDICATIONS: I51.7 Cardiomegaly. MEASUREMENTS: 2D/MM Value Range Doppler ValueRange EF Mod BP 67 % [ 54 - 74 ] ANTHONY Vmax 2.63cm2 [ 2.00 - 4.00 ] EF Teich MM 70 % [ 54 - 74 ] AV Mean PG 6mmHg Estimated EF 65-70 % AV Peak Shivam 1.59m/s [ 1.00 - 1.70 ] LVIDd 2D 4.43 cm [ 3.80 - 5.20 ] AV Peak PG 10mmHg LVIDd MM 5.24 cm [ 3.80 - 5.20 ] AV VTI 32.13cm LVIDs 2D 3.15 cm [ 2.20 - 3.50 ] LVOT Diam 2.05 cm[ 1.70 - 2.10 ] LVIDs MM 3.16 cm [ 2.20 - 3.50 ] LVOT Peak Shivam 1.27m/s [ 0.70 - 1.10 ] LVPWd 2D 0.74 cm [ 0.60 - 0.90 ] LVOT VTI 26.39cm LVPWd MM 0.76 cm [ 0.60 - 0.90 ] MV E Peak Shivam 0.82m/s [ 0.60 - 1.30 ] IVSd 2D 0.77 cm [ 0.60 - 0.90 ] MV A Peak Shivam 0.41m/s [ 1.00 - 1.20 ] IVSd MM 0.84 cm [ 0.60 - 0.90 ] MV Decel Time 260msec [ 104 - 258 ] LA Dimension MM 3.24 cm [ 2.70 - 3.80 ] PV Peak Shivam 0.96m/s [ 0.40 - 0.80 ] AoR Diam MM 3.03 cm [ 2.70 - 3.70 ] TR Peak Shivam 2.00m/s [ 1.00 - 2.80 ] LA Volume Index 24 cc/m2 [ 16 - 34 ] TR Peak PG 16mmHg RVSP 24.00 mmHg [ 10.00 - 36.00 ] Lateral E` 0.17 m/s [ 0.10 - 0.15 ] E` 0.14 m/s E/E` 5 2D/MM Value Range Doppler ValueRange - FINDINGS: Interpretation Site: Exam was interpreted at [facility]. Left Ventricle: Normal left ventricular systolic function. No focal wall motionabnormalities. Normal left ventricular size. Normal left ventricular wall thickness. Normal leftventricular diastolic function. Ejection fraction is measured at 67 %. EjectionFraction is visually estimated to be 65-70 %. Global Longitudinal Strain is -22 %. GLS isnormal. Right Ventricle: Normal right ventricular size. Normal right ventricular systolicfunction. Left Atrium: The left atrium is normal in size. Right Atrium: The right atrium is normal in size. Atrial Septum: Normal atrial septum. Mitral Valve: Normal appearance of the mitral valve. Mild mitral valve regurgitation.There is no hemodynamically significant mitral stenosis by Doppler. Aortic Valve: Normal appearance of the aortic valve. No evidence of hemodynamicallysignificant aortic stenosis by Doppler. Trileaflet aortic valve. Trace aortic valveregurgitation. Tricuspid Valve: Normal appearance of the tricuspid valve. Normal right ventricularsystolic pressure. Estimated peak RVSP is 24 mmHg. Mild tricuspid regurgitation. Pulmonic Valve: Normal appearance of the pulmonic valve. No pulmonic stenosis. Trivialregurgitation in the pulmonic valve. Pericardium: Normal pericardium with no significant pericardial effusion. Aorta: Normal aortic root. IVC: Normal size and normal respiratory collapse consistent with normal rightatrial pressure (<5 mmHg). CONCLUSIONS: Normal left ventricular systolic function. No focal wall motionabnormalities. Normal left ventricular size. Normal left ventricular wall thickness. Normal leftventricular diastolic function. Ejection fraction is measured at 67 %. EjectionFraction is visually estimated to be 65-70 %. Global Longitudinal Strain is -22 %. GLS isnormal. Mild mitral valve regurgitation. Normal right ventricular systolic pressure. Mild tricuspidregurgitation. Normal sinus rhythm. Electronically Signed By: Caleb Quiles MD 09/03/2024 4:39:09 PM CDT Boris Bhatia MD CV ECHO PROCEDURES Final Result from Last 3 Months [facility] Care Teams Theatrical Trouper Relationship Specialty Start Date End Date Boris Bhatia MD PCP - General Internal Medicine 06/18/21
--- OUTSIDE RECORDS SUMMARY | 2024-09-05 16:42 | XMS_ITS | Clinical Summary ---
Author Organization [facility] [employer] Address [address] [place] [address] Care Team Providers Care Gripper Attacher Name Role Phone Unavailable Primary Care Provider Unavailabl e Source Comments [facility] [employer],non-owned Affiliates and Associated Physician Practices is amultiple site organization consisting of ambulatory clinics and hospital sitesin [place], [place], [place] and [place]. This disclosure is being madepursuant to the Care Everywhere program and may not contain all information available regarding this patient. Last updated 18.[facility] [employer] Allergies No known active allergies Medications * [...] documented US PNC with Dr. Ocampo at [place], Transferred by Dr. Simpson Blood type: A+/I/-/-, [...] on file Legal Sex Female 12:06 PM CRIMINAL INVESTIGATOR Gender Identity Not on file Sexual Orientation [...]
--- OUTSIDE RECORDS SUMMARY | 2024-09-05 16:42 | XMS_ITS | Referral Summary ---
Author Organization [facility] Virtual Care Address [address] [place] [phone] Phone Care Team Providers Care Clothes Designer Name Role Phone Boris Bhatia MD Primary Care Provider [phone] Encounters Date Type Department Care Team Description 09/03/2024 3:00 PM CDT Ancillary Procedure [facility] Medical Group Cardiology [address] [place] [address] Cardiomegaly from Last 3 Months Allergies No known active allergies Medications busPIRone [...] on file Legal Sex Female 8:09 AM TOOL PROGRAMMER Gender Identity Female 06/18/2021 11:42 AM TOOL PROGRAMMER Sexual Orientation Not on file Last Filed Vital Signs Vital Sign Reading Time Taken Comments Blood Pressure 132/84 04/20/2024 2:18 PM TOOL PROGRAMMER Pulse 76 04/20/2024 2:18 PM TOOL PROGRAMMER Temperature 37 C (98.6 F) 04/20/2024 2:18 PM TOOL PROGRAMMER Respiratory Rate 18 04/20/2024 2:18 PM TOOL PROGRAMMER Oxygen Saturation 99% 04/20/2024 2:18 PM TOOL PROGRAMMER Inhaled Oxygen Concentration - - Weight 83 kg (183 lb) 04/20/2024 2:18 PM TOOL PROGRAMMER Height 170.2 cm (5' 7 ) 04/20/2024 2:18 PM TOOL PROGRAMMER Body Mass Index 28.66 04/20/2024 2:18 PM TOOL PROGRAMMER Plan of Treatment Not on file Procedures Procedure Name Priority Date/Time Associated Diagnosis [...] PM CDT Narrative 09/03/2024 4:40 PM CDT [facility] Medical Group Cardiology [address] [facility] [address], [place] [address] [address] [facility] [address], [place] [address] P:[phone] P:[phone] Echocardiographic Report Patient Name: AMENA MURILLO : [...] FINDINGS: Interpretation Site: Exam was interpreted at [facility] [place]. Left Ventricle: Normal left ventricular systolic function. [...] Procedure Note Caleb Quiles MD - 09/03/2024 [facility] Cardiology [address] [facility] [address], [place] [address] [address], [place] [address] P:[phone] P:[phone] Echocardiographic Report Patient Name: AMENA MURILLO : [...] FINDINGS: Interpretation Site: Exam was interpreted at [facility]. Left Ventricle: Normal left ventricular systolic function. [...] Final Result from Last 3 Months Insurance [facility] Care Teams Clothes Designer Relationship Specialty Start Date End Date Boris Bhatia MD PCP - General Internal Medicine 06/18/21
[2024-09-05 17:32] LABS: Alanine Aminotransferase 123 U/L (6-35); Albumin Level 4.3 g/dL (3.5-5.1); Alkaline Phosphatase 132 U/L (38-126); Anion Gap 5 mmol/L (4-12); Aspartate Amino Transferase 210 U/L (14-36); Bilirubin,Total 0.8 mg/dL (0.2-1.3); Blood Urea Nitrogen 12 mg/dL (7-17); Calcium 8.9 mg/dL (8.4-10.2); Carbon Dioxide 27 mmol/L (22-30); Chloride 106 mmol/L (98-107); Estimated Glomerular Filt Rate > 60; Glucose 90 mg/dL (65-110); Potassium 3.9 mmol/L (3.4-5.0); Sodium 138 mmol/L (137-145)
== END 2024-09-05 16:38 | disposition home or self-care (01) ==
LOC: ANHLAB 16:40
PROVIDERS: PCP Internal Medicine; Visit Provider Internal Medicine
DX: R94.5 Abnormal results of liver function studies (principal)
CPT/HCPCS: 36415; 80053

== ENCOUNTER 2024-09-24 10:11 | Outpatient (CLI) | payer OTHER, SELFPAY ==
--- OUTSIDE RECORDS SUMMARY | 2024-09-24 10:15 | XMS_ITS | Clinical Summary ---
Author Organization [facility] Virtual Care Address [address] [place] [phone] Phone Care Team Providers Care Agency Development Manager Name Role Phone Boris Bhatia MD Primary Care Provider Allergies No known [...] Description 09/03/2024 3:00 PM CDT Ancillary Procedure [facility] Medical Group Cardiology [address] [facility] [address] [place] [address] Cardiomegaly from Last 3 Months Social History Tobacco Use Types Packs/Day Years Used Date Smoking Tobacco: Never Assessed Comments Unknown Sex and Gender Information Value Date Recorded Sex Assigned at Not on file Legal Sex Female 8:09 AM MASTIC WORKER Gender Identity Female 06/18/2021 11:42 AM MASTIC WORKER Sexual Orientation Not on file Obstetrics History Last Filed Vital Signs Vital Sign Reading Time Taken Comments Blood Pressure 132/84 04/20/2024 2:18 PM MASTIC WORKER Pulse 76 04/20/2024 2:18 PM MASTIC WORKER Temperature 37 C (98.6 F) 04/20/2024 2:18 PM MASTIC WORKER Respiratory Rate 18 04/20/2024 2:18 PM MASTIC WORKER Oxygen Saturation 99% 04/20/2024 2:18 PM MASTIC WORKER Inhaled Oxygen Concentration - - Weight 83 kg (183 lb) 04/20/2024 2:18 PM MASTIC WORKER Height 170.2 cm (5' 7) 04/20/2024 2:18 PM MASTIC WORKER Body Mass Index 28.66 04/20/2024 2:18 PM MASTIC WORKER Plan of Treatment Health Maintenance Due Date [...] PM CDT Narrative 09/03/2024 4:40 PM CDT [facility] Medical Group Cardiology [address], [place] [address] [address] [facility] [address], [place] [address] P:[phone] P:[phone] Echocardiographic Report Patient Name: AMENA MURILLO : 1985 Study Date: 09/03/2024 12:53:29 PM Gender: F Tech: [facility] Provider: BORIS BHATIA Height(Cm): 170 BSA: 1.98 [...] FINDINGS: Interpretation Site: Exam was interpreted at [facility]. Left Ventricle: Normal left ventricular systolic [...] Procedure Note Caleb Quiles MD - 09/03/2024 [facility] Medical [facility] Cardiology [address] [facility] [address], [place] [address] [address] [facility] [address], [address], [place] [address] P:[phone] P:[phone] Echocardiographic Report Patient Name: AMENA MURILLO : [...] FINDINGS: Interpretation Site: Exam was interpreted at [facility]. Left Ventricle: Normal left ventricular systolic [...] Final Result from Last 3 Months [facility] Care Teams Agency Development Manager Relationship Specialty Start Date End Date Boris Bhatia MD PCP - General Internal Medicine 06/18/21
--- OUTSIDE RECORDS SUMMARY | 2024-09-24 10:15 | XMS_ITS | Clinical Summary ---
Author Organization [facility] [employer] Address [address] [place] [address] Care Team Providers Care Internal Communications Intern Name Role Phone Unavailable Primary Care Provider Unavailabl e Source Comments [facility] [employer],non-owned Affiliates and Associated Physician Practices is amultiple site organization consisting of ambulatory clinics and hospital sitesin [place], [place], [place] and [place]. This disclosure is being madepursuant to the Care Everywhere program and may not contain all information available regarding this patient. Last updated 18.[facility] [employer] Allergies No known active allergies Medications * [...] documented US PNC with Dr. Ocampo at [place], Transferred by Dr. Simpson Blood type: A+/I/-/-, [...] on file Legal Sex Female 12:06 PM GUIDANCE AND CONTROL SYSTEM ENGINEER Gender Identity Not on file Sexual Orientation [...] 3:15 PM CDT Height 170.2 cm (5' 7) 12/03/2010 3:15 PM CDT Body Mass Index [...]
--- OUTSIDE RECORDS SUMMARY | 2024-09-24 10:15 | XMS_ITS | Referral Summary ---
Author Organization [facility] Virtual Care Address [address] [place] [phone] Phone Care Team Providers Care Grounds Foreman Name Role Phone Boris Bhatia MD Primary Care Provider [phone] Encounters Date Type Department Care Team Description 09/03/2024 3:00 PM CDT Ancillary Procedure [facility] Medical Group Cardiology [address] [place] [address] Cardiomegaly from Last 3 Months [...] on file Legal Sex Female 8:09 AM CRITICAL CARE EDUCATOR Gender Identity Female 06/18/2021 11:42 AM CRITICAL CARE EDUCATOR Sexual Orientation Not on file Last Filed Vital Signs Vital Sign Reading Time Taken Comments Blood Pressure 132/84 04/20/2024 2:18 PM CRITICAL CARE EDUCATOR Pulse 76 04/20/2024 2:18 PM CRITICAL CARE EDUCATOR Temperature 37 C (98.6 F) 04/20/2024 2:18 PM CRITICAL CARE EDUCATOR Respiratory Rate 18 04/20/2024 2:18 PM CRITICAL CARE EDUCATOR Oxygen Saturation 99% 04/20/2024 2:18 PM CRITICAL CARE EDUCATOR Inhaled Oxygen Concentration - - Weight 83 kg (183 lb) 04/20/2024 2:18 PM CRITICAL CARE EDUCATOR Height 170.2 cm (5' 7) 04/20/2024 2:18 PM CRITICAL CARE EDUCATOR Body Mass Index 28.66 04/20/2024 2:18 PM CRITICAL CARE EDUCATOR Plan of Treatment Not on file Procedures [...] PM CDT Narrative 09/03/2024 4:40 PM CDT [facility] Medical Group Cardiology [address] [facility] [address] [address] [address] [facility] [address], [place] [address] P:[phone] P:[phone] Echocardiographic Report Patient Name: AMENA MURILLO : [...] Procedure Note Caleb Quiles MD - 09/03/2024 [facility] Cardiology [address] [facility] [address], [place] [address] [address], [place] [address] P:[phone] P:[phone] Echocardiographic Report Patient Name: AMENA MURILLO : [...] FINDINGS: Interpretation Site: Exam was interpreted at [facility]. Left Ventricle: Normal left ventricular systolic [...] tricuspidregurgitation. Normal sinus rhythm. Electronically Signed By: Caelb Quiles MD 09/03/2024 4:39:09 PM CDT Boris Bhatia MD CV ECHO PROCEDURES Final Result from Last 3 Months Insurance [facility] Care Teams Grounds Foreman Relationship Specialty Start Date End Date Boris Bhatia MD PCP - General Internal Medicine 06/18/21
[2024-09-24 11:12] LABS: Hematocrit 40.4 % (37.0-47.0); Hemoglobin 13.1 g/dL (12.0-15.0); Mean Corpuscular HGB Conc 32.4 g/dl (32-36); Mean Corpuscular Hemoglobin 28.9 pg (26-34); Mean Corpuscular Volume 89.2 fl (80-100); Mean Platelet Volume 9.2 fl (7.4-10.4); Platelet Count Result 267 k/mm3 (150-375); Red Blood Count 4.53 M/mm3 (4.2-5.4); Red Cell Distribution Width 14.3 % (11.5-14.5); White Blood Count 6.2 K/mm3 (4.5-10.0)
[2024-09-24 11:28] LABS: Alanine Aminotransferase 27 U/L (6-35); Albumin Level 4.1 g/dL (3.5-5.1); Alkaline Phosphatase 76 U/L (38-126); Anion Gap 5 mmol/L (4-12); Aspartate Amino Transferase 32 U/L (14-36); Bilirubin Indirect 0.8 mg/dL (0-1.1); Bilirubin,Total 0.9 mg/dL (0.2-1.3); Blood Urea Nitrogen 14 mg/dL (7-17); Calcium 8.8 mg/dL (8.4-10.2); Carbon Dioxide 29 mmol/L (22-30); Chloride 104 mmol/L (98-107); Estimated Glomerular Filt Rate > 60; Glucose 83 mg/dL (65-110); Potassium 3.6 mmol/L (3.4-5.0); Sodium 138 mmol/L (137-145)
[2024-09-24 15:26] LABS: Iron 127 ug/dL (37-170); Percent Iron Saturation 43 % (20-50)
[2024-09-26 14:04] LABS: ANA Pattern Nuclear, Speckled; ANA Titer 1:40 titer; Anti Nuclear Antibody Pattern Cytoplasmic
[2024-09-26 14:43] LABS: Immunoglobulin A 92 mg/dL (47-310); TTG IGA AB <1.0 U/mL
[2024-09-27 07:24] LABS: LKM 1 Antibody <=20.0 U (<=20.0)
[2024-09-27 15:18] LABS: Alpha-1-Antitrypsin, QN 147 mg/dL (83-199); Ceruloplasmin 26 mg/dL (14-48)
[2024-09-27 21:08] LABS: Mitochondrial (M2) Ab (IgG) <20.0 U
[2024-09-28 23:09] LABS: Actin Antibody (IgG) <20 U (<20)
== END 2024-09-24 10:12 | disposition home or self-care (01) ==
LOC: ANHLAB 10:12
PROVIDERS: PCP Internal Medicine; Visit Provider Nurse Practitioner
DX: K74.60 Unspecified cirrhosis of liver (principal); K80.50 Calculus of bile duct without cholangitis or cholecystitis without obstruction; R74.8 Abnormal levels of other serum enzymes
CPT/HCPCS: 36415; 80048; 80076; 82103; 82390; 82728; 82784; 83520; 83540; 83550; 84443; 85027; 85610; 86038; 86039; 86364; 86376

== ENCOUNTER 2024-10-18 07:03 | Outpatient (CLI) | payer OTHER, SELFPAY ==
--- NOTE | ~2024-10-18 | US_ITS ---
Limited Abdominal Sonogram: Real-time sonographic imaging of the right upper quadrant was performed. Clinical History: Biliary colic Findings: The liver appears normal with no evidence of mass lesion or bile duct dilatation. Main por shane vein demonstrates normal direction of flow. The gallbladder is absent, compatible prior cholecyst ectomy. The common bile duct measures 5 mm. The visualized pancreas, aorta, and IVC are unremarkable . Impression: Status post cholecystectomy, otherwise unremarkable exam. Reviewed, dictated and finalized at location . Impression: Status post cholecystectomy, otherwise unremarkable exam.
--- OUTSIDE RECORDS SUMMARY | 2024-10-18 07:06 | XMS_ITS | Clinical Summary ---
Author Organization [facility] Address [address] [place] [address] Care Team Providers Care Hardware Developer Name Role Phone Cole Ziegler MD Primary Care Provider [phone] Allergies No known active allergies Medications busPIRone [...] Date Opioid overdose ([facility]) 03/23/2023 Social History Tobacco Use Types Packs/Day Years Used Date Smoking Tobacco: Never Smokeless Tobacco: Never Tobacco Cessation:Counseling Given: Not Answered Alcohol Use Standard Drinks/Week Comments Yes 0 (1 standard drink = 0.6 oz pur e alcohol) Drinks beer everyday. Comments Unknown Sex and Gender Information Value Date Recorded Sex Assigned at Not on file Legal Sex Female 5:00 AM CUSTOM DESIGNER Gender Identity Not on file Sexual Orientation Not on file Last Filed Vital Signs Vital Sign Reading Time Taken Comments Blood Pressure 113/73 03/25/2023 7:41 AM CUSTOM DESIGNER Pulse 62 03/25/2023 7:41 AM CUSTOM DESIGNER Temperature 36.5 C (97.7 F) 03/25/2023 7:41 AM CUSTOM DESIGNER Respiratory Rate 20 03/25/2023 7:41 AM CUSTOM DESIGNER Oxygen Saturation 100% 03/25/2023 7:41 AM CUSTOM DESIGNER Inhaled Oxygen Concentration - - Weight 76.5 kg (168 lb 10.4 oz) 03/25/2023 5:00 AM CUSTOM DESIGNER Height 170.2 cm (5' 7) 03/23/2023 10:0 0 AM CUSTOM DESIGNER Body Mass Index 26.41 03/23/2023 10:00 AM CUSTOM DESIGNER Plan of Treatment Health Maintenance Due Date [...] 10:01 AM 03/25/2023 3:36 PM Care Teams Hardware Developer Relationship Specialty Start Date End Date Cole Ziegler MD [address] [place] [address] PCP - General INTERNAL MEDICINE 03/01/23
--- OUTSIDE RECORDS SUMMARY | 2024-10-18 07:06 | XMS_ITS | Patient Health Record ---
Author Organization [facility] Address [address] [place] [address] Care Team Providers Care Foundation Director Name Role Phone Toney AQUINO, [facility] Primary Care Provider Unavaila Shreya Coppola Unavailable [phone] Sariah Maravilla Unavailable [phone] Allergies No Known Allergies Reason For Referral No Information Medications Medication SIG (Take, Route, Frequency, Duration) Notes Start Date End Date Status ARIPiprazole 2 MG 1 tablet Oral Once a day for 30 days no 90 day please, may be DCing next month Active Hydroquinone 4 % External 09/08/2023 Ac tive busPIRone HCl 15 MG TAKE 1 TABLET BY MOUTH THREE TIMES A DAY Active Tretinoin 0.025 % External 09/08/2023 A ctive Amoxicillin 500 MG Oral 09/08/2023 Active FLUoxetine HCl 20 MG 3 capsules once a day for 7 days, 2 capsules once a day for 7 days, 1 capsule once a day for 7 days Orally for 21 days switching to zoloft 08/26/2024 Active Sertraline HCl 100 MG 1 tablet Oral Once a day for 30 days 09/20/2024 Active Social History Tobacco Use: Social History [...] Risk Notes Problem Mild recurrent major depression (07624138) Major depressive disorder, recurrent, mild (F33.0) 4 Active confirmed Problem 20535640 Major depressive disorder, recurrent, in partial remission (F33.41) Active confirmed Problem Generalized anxiety disorder (F41.1) 4 Active confirmed Problem Chronic insomnia (305598765) Chronic insomnia (F51.04) Active confirmed Problem Panic disorder (453367446) Panic attacks (F41.0) Active confirmed Vital Signs Heart Rate 65 /min 09/20/2024 Height-cm 170.18 cm 09/20/2024 Blood pressure diastolic 81 mm Hg 09/20/2024 Weight-kg 81.65 kg 09/20/2024 Height 67.00 in 09/20/2024 Blood pressure systolic 122 mm Hg 09/20/2024 Weight 180 lbs 09/20/2024 BMI 28.19 kg/m2 09/20/2024 Encounters Encounter Location Date Provider Diagnosis [facility] [place] [address] [facility] [address] [address] 11/20/2023 Sariah Maravilla Major depressive disorder, recurrent, mild F33.0 ; Generalized anxiety disorder F41.1 ; Chronic insomnia F51.04 ; Panic attacks F41.0 and Current drinker Z78.9 [facility] [place] [address] [facility] [address] [address] 01/22/2024 Sariah Maravilla Major depressive disorder, recurrent, mild F33.0 ; Generalized anxiety disorder F41.1 ; Chronic insomnia F51.04 ; Panic attacks F41.0 and Current drinker Z78.9 [facility] [address] [address] 04/22/2024 Shreya Antonio Major depressive disorder, recurrent, mild F33.0 ; Generalized anxiety disorder F41.1 ; Chronic insomnia F51.04 and Panic attacks F41.[address] [address] 07/22/2024 Shreya Antonio Encounter for screening for depression Z13.31 ; Major depressive disorder, recurrent, mild F33.0 ; Generalized anxiety disorder F41.1 ; Chronic insomnia F51.04 and Panic attacks F41.[address] [address] 08/26/2024 Shreya Antonio Major depressive disorder, recurrent, mild F33.0 ; Generalized anxiety disorder F41.1 ; Chronic insomnia F51.04 ; Encounter for screening for depression Z13.31 and Encounter for screening for cardiovascular disorders Z13.[address] [address] 09/20/2024 Shreya Antonio Generalized anxiety disorder F41.1 ; Major depressive disorder, recurrent, in partial remission F33.41 ; Panic attacks F41.0 ; Chronic insomnia F51.04 ; Encounter for screening for depression Z13.31 and Encounter for screening for cardiovascular disorders Z13.[address] [address] 05/14/2024 Shreya Antonio [address] [address] 05/14/2024 Shreya Antonio Assessments Encounter Date Diagnosis (ICD Code) Assessment Notes Treatment Notes Treatment Clinical Notes Section Notes 01/22/2024 Major depressive disorder, recurrent, mild (ICD-10 - F33.0) cont abilify 2mg daily cont fluoxetine 60mg qam (20mg + 40mg) cont therapy 08/26/2024 Major depressive disorder, recurrent, mild (ICD-10 - F33.0) 08/26/2024 Generalized anxiety disorder (ICD-10 - F41.1) 11/20/2023 Major depressive disorder, recurrent, mild (ICD-10 [...] counseling f/u 2 months, earlier if concerns 04/22/2024 Major depressive disorder, recurrent, mild (ICD-10 - F33.0) Assessment and Plan: Doing well overall, no concerns. Some mild depressive symptoms, she related to holiday and the loss of her brother on [place] 13 yrs ago. Feels she is coping [...] noted at follow-up, consider alternative medication options Medication-susie abraham Weight Gain Assessment: Patient reports weight gain, concerns from aripiprazole contributing Plan: - Monitor weight and appetite changes - Encourage continuation of walking for mental health benefits and weight management - Consider potential medication adjustments in the future if weight gain persists or worsens 09/20/2024 Major depressive disorder, recurrent, in partial remission (ICD-10 - F33.41) 09/20/2024 Generalized anxiety disorder (ICD-10 - F41.1) 09/20/2024 Panic attacks (ICD-10 - F41.0) 04/22/2024 Generalized anxiety disorder (ICD-10 - F41.1) Assessment and Plan: Doing well overall, no concerns. Some mild depressive symptoms, she related to holiday and the loss of her brother on [place] 13 yrs ago. Feels she is coping [...] up 3 months, sooner if concerns arise 11/20/2023 Chronic insomnia (ICD-10 - F51.04) practice good sleep hygiene recommend decrease caffeine, lpue later in day has otc melatonin 08/26/2024 Chronic insomnia (ICD-10 - F51.04) 07/22/2024 [...] noted at follow-up, consider alternative medication options Medication-susie abraham Weight Gain Assessment: Patient reports weight gain, concerns from aripiprazole contributing Plan: - Monitor weight and appetite changes - Encourage continuation of walking for mental health benefits and weight management - Consider potential medication adjustments in the future if weight gain persists or worsens 01/22/2024 Generalized anxiety disorder (ICD-10 - F41.1) improved cont buspar 15mg TID SSRI, therapy tolerating buspar increase and having benefit. Feels sx are manageable, satisfied with current regimen cont counseling f/u 3 months, earlier if concerns 01/22/2024 Chronic insomnia (ICD-10 - F51.04) practice good sleep hygiene minimize caffeine has otc melatonin 07/22/2024 Generalized anxiety disorder (ICD-10 - F41.1) [...] noted at follow-up, consider alternative medication options Medication-susie abraham Weight Gain Assessment: Patient reports weight gain, concerns from aripiprazole contributing Plan: - Monitor weight and appetite changes - Encourage continuation of walking for mental health benefits and weight management - Consider potential medication adjustments in the future if weight gain persists or worsens 11/20/2023 Panic attacks (ICD-10 - F41.0) as above 04/22/2024 Chronic insomnia (ICD-10 - F51.04) Assessment and Plan: Doing well overall, no concerns. Some mild depressive symptoms, she related to holiday and the loss of her brother on [place] 13 yrs ago. Feels she is coping [...] up 3 months, sooner if concerns arise 09/20/2024 Chronic insomnia (ICD-10 - F51.04) 08/26/2024 Encounter for screening for depression (ICD-10 - Z13.31) 09/20/2024 Encounter for screening for depression (ICD-10 - Z13.31) 07/22/2024 Chronic insomnia (ICD-10 - F51.04) Major [...] noted at follow-up, consider alternative medication options Medication-susie abraham Weight Gain Assessment: Patient reports weight gain, [...] up 3 months, sooner if concerns arise 11/20/2023 Current drinker (ICD-10 - Z78.9) continue to minimize etoh frequency and quantity 08/26/2024 Encounter for screening for cardiovascular disorders (ICD-10 - Z13.6) 01/22/2024 Panic attacks (ICD-10 - F41.0) as above 01/22/2024 Current drinker (ICD-10 - Z78.9) continue [...] noted at follow-up, consider alternative medication options Medication-susie abraham Weight Gain Assessment: Patient reports weight gain, concerns from aripiprazole contributing Plan: - Monitor weight and appetite changes - Encourage continuation of walking for mental health benefits and weight management - Consider potential medication adjustments in the future if weight gain persists or worsens 09/20/2024 Encounter for screening for cardiovascular disorders (ICD-10 - Z13.6) 11/20/2023 Other 08/26/2024 Alea Murillo, female, presents with ongoing [...] transition to assess response and tolerability - 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 Anxiety and Depression Assessment: Patient reports improvement in mood and energy, though not yet at desired levels. Work-related stress continues, particularly due to office relocation and staff reductions. Sleep and appetite are unaffected, and there are no suicidal thoughts or panic attacks. The patient has successfully transitioned from Prozac to sertraline, currently at 75 mg, with only mild, tolerable side effects of nausea and headache during the switch. Plan: - Increase sertraline to 100 mg PO daily - Continue aripiprazole - Continue buspirone as needed - Follow up to assess response to increased sertraline dose - Long-term goal: Consider tapering off aripiprazole and buspirone if sertraline proves effective at managing symptoms Plan Of Treatment Next Appt Details Provider Name:Shreya Kaylee roach, 10/25/2024 04:45:00 PM, [address], [address], [place], [address], Insurance Providers Payer Name Payer Address Payer Phone Subscriber Number Group Number Insured Name Patient Relationship to Insured Coverage Start Date Coverage End Date [employer] Pos [address] [place] [address] [id number] JESÚS OZUNA Spouse - patient is the spouse of the insured Medical (General) History Medical History History ICD Code Problems: Chronic insomnia Mild recurrent major depression Past Psychiatric History: Anxiety Disord er undefined Surgical History Surgery Date(Month/Year) Removal of gallbladder (84677) 6 Tonsilectomy/adenoids 08/26/2002 Any surgical history bladder sling 09/19 Hysterectomy (05766) 09/19/2022 Endometrial ablation (35451) 03/15/2016
--- OUTSIDE RECORDS SUMMARY | 2024-10-18 07:06 | XMS_ITS | Referral Summary ---
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 MAINTENANCE MECHANIC Gender Identity Female 06/18/2021 11:42 AM CNC MAINTENANCE MECHANIC Sexual Orientation Not on file Last Filed Vital Signs Vital Sign Reading Time Taken Comments Blood Pressure 132/84 04/20/2024 2:18 PM CNC MAINTENANCE MECHANIC Pulse 76 04/20/2024 2:18 PM CNC MAINTENANCE MECHANIC Temperature 37 C (98.6 F) 04/20/2024 2:18 PM CNC MAINTENANCE MECHANIC Respiratory Rate 18 04/20/2024 2:18 PM CNC MAINTENANCE MECHANIC Oxygen Saturation 99% 04/20/2024 2:18 PM CNC MAINTENANCE MECHANIC Inhaled Oxygen Concentration - - Weight 83 kg (183 lb) 04/20/2024 2:18 PM CNC MAINTENANCE MECHANIC Height 170.2 cm (5' 7) 04/20/2024 2:18 PM CNC MAINTENANCE MECHANIC Body Mass Index 28.66 04/20/2024 2:18 PM CNC MAINTENANCE MECHANIC Plan of Treatment Not on file Procedures [...] PM CDT Narrative 09/03/2024 4:40 PM CDT [facility] Medical Group Cardiology [address] [facility] [address], [place] [address] [address] [facility] [address], [place] [address] P:[phone] P:[phone] Echocardiographic Report Patient Name: AMENA MURILLO : [...] Procedure Note Caleb Quiles MD - 09/03/2024 [facility] Medical Group Cardiology [address] [facility] [address], [place] [address] [address], [address], [place] [address] P:[phone] P:[phone] Echocardiographic Report Patient Name: AMENA MURILLO : [...] FINDINGS: Interpretation Site: Exam was interpreted at [facility]. Left Ventricle: Normal left ventricular systolic function. [...] Final Result from Last 3 Months Insurance [facility] H[facility]/PPO Address: [facility] [id number] [place] [phone] Care Teams Personal Injury Litigation Paralegal Relationship Specialty Start Date End Date Boris Bhatia MD PCP - General Internal Medicine 06/18/21
--- OUTSIDE RECORDS SUMMARY | 2024-10-18 07:06 | XMS_ITS | Clinical Summary ---
Author Organization [facility] Address [address] [place] [address] Care Team Providers Care Personnel Scheduler Name Role Phone Unavailable Primary Care Provider Unavailabl e Source Comments [facility],non-owned Affiliates and Associated Physician Practices is amultiple site organization consisting of ambulatory clinics and hospital sitesin [place], [place], [place] and [place]. This disclosure is being madepursuant to the Care Everywhere program and may not contain all information available regarding this patient. Last updated 18.[facility] Allergies No known active allergies Medications * [...] documented US PNC with Dr. Ocampo at [place], Transferred by Dr. 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
--- OUTSIDE RECORDS SUMMARY | 2024-10-18 07:07 | XMS_ITS | Clinical Summary ---
Author Organization [facility] Virtual Care Address [address] [place] [phone] Phone Care Team Providers Care Municipal Court Magistrate Name Role Phone Boris Bhatia MD Primary Care Provider [phone] Allergies No known active allergies Medications busPIRone [...] Description 09/03/2024 3:00 PM CDT Ancillary Procedure [facility] Medical Group Cardiology [address] [facility] [address] [place] [address] Cardiomegaly from Last 3 Months Social History Tobacco Use Types Packs/Day Years Used Date Smoking Tobacco: Never Assessed Comments Unknown Sex and Gender Information Value Date Recorded Sex Assigned at Not on file Legal Sex Female 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 Gender Identity Female 06/18/2021 11:42 AM SENIOR SOFTWARE TEST ENGINEER Sexual Orientation Not on file Obstetrics History Last Filed Vital Signs Vital Sign Reading Time Taken Comments Blood Pressure 132/84 04/20/2024 2:18 PM SENIOR SOFTWARE TEST ENGINEER Pulse 76 04/20/2024 2:18 PM SENIOR SOFTWARE TEST ENGINEER Temperature 37 C (98.6 F) 04/20/2024 2:18 PM SENIOR SOFTWARE TEST ENGINEER Respiratory Rate 18 04/20/2024 2:18 PM SENIOR SOFTWARE TEST ENGINEER Oxygen Saturation 99% 04/20/2024 2:18 PM SENIOR SOFTWARE TEST ENGINEER Inhaled Oxygen Concentration - - Weight 83 kg (183 lb) 04/20/2024 2:18 PM SENIOR SOFTWARE TEST ENGINEER Height 170.2 cm (5' 7) 04/20/2024 2:18 PM SENIOR SOFTWARE TEST ENGINEER Body Mass Index 28.66 04/20/2024 2:18 PM SENIOR SOFTWARE TEST ENGINEER Plan of Treatment Health Maintenance Due Date [...] PM CDT Narrative 09/03/2024 4:40 PM CDT [facility] Medical Group Cardiology [address], [place] [address] [address] [facility] [address], [place] [address] P:[phone] P:[phone] Echocardiographic Report Patient Name: AMENA MURILLO : 1985 Study Date: 09/03/2024 12:53:29 PM Gender: F Tech: [facility] Provider: BORIS BHATIA Height(Cm): 170 BSA: [...] FINDINGS: Interpretation Site: Exam was interpreted at [facility]. Left Ventricle: Normal left ventricular systolic [...] Normal sinus rhythm. Electronically Signed By: Caleb Quilse MD 09/03/2024 4:39:09 PM CDT Procedure Note Caleb Quiles MD - 09/03/2024 [facility] Medical Group Cardiology [address] [facility] [address] [address] [address] [facility] [address], [place] [address] P:[phone] P:[phone] Echocardiographic Report Patient Name: AMENA MURILLO : [...] FINDINGS: Interpretation Site: Exam was interpreted at [facility]. Left Ventricle: Normal left ventricular systolic [...] Final Result from Last 3 Months [facility] Care Teams [address] Magistrate Relationship Specialty Start Date End Date Boris Bhatia MD PCP - General Internal Medicine 06/18/21
== END 2024-10-18 07:04 | disposition home or self-care (01) ==
PROVIDERS: PCP Internal Medicine; Visit Provider Nurse Practitioner
DX: K80.50 Calculus of bile duct without cholangitis or cholecystitis without obstruction (principal); Z90.49 Acquired absence of other specified parts of digestive tract; R74.8 Abnormal levels of other serum enzymes; R10.13 Epigastric pain
CPT/HCPCS: 76705

== ENCOUNTER 2024-11-13 10:18 | Outpatient (CLI) | payer OTHER, SELFPAY ==
--- OUTSIDE RECORDS SUMMARY | 2024-11-13 10:33 | XMS_ITS | Referral Summary ---
Author Organization [facility] Virtual Care Address [address] [place] [phone] Phone Care Team Providers Care Pack Press Operator Name Role Phone Boris Bhatia MD Primary Care Provider [phone] Encounters Date Type Department Care Team Description 09/03/2024 3:00 PM CDT Ancillary Procedure [facility] Medical Group Cardiology [address] [place] [address] Cardiomegaly from Last 3 Months [...] on file Legal Sex Female 8:09 AM HELP DESK REP Gender Identity Female 06/18/2021 11:42 AM HELP DESK REP Sexual Orientation Not on file Last Filed Vital Signs Vital Sign Reading Time Taken Comments Blood Pressure 132/84 04/20/2024 2:18 PM HELP DESK REP Pulse 76 04/20/2024 2:18 PM HELP DESK REP Temperature 37 C (98.6 F) 04/20/2024 2:18 PM HELP DESK REP Respiratory Rate 18 04/20/2024 2:18 PM HELP DESK REP Oxygen Saturation 99% 04/20/2024 2:18 PM HELP DESK REP Inhaled Oxygen Concentration - - Weight 83 kg (183 lb) 04/20/2024 2:18 PM HELP DESK REP Height 170.2 cm (5' 7) 04/20/2024 2:18 PM HELP DESK REP Body Mass Index 28.66 04/20/2024 2:18 PM HELP DESK REP Plan of Treatment Not on file Procedures [...] PM CDT Narrative 09/03/2024 4:40 PM CDT [facility] Medical Group Cardiology [address] [facility] [address], [place] [address] [address] [facility] [address], [place] [address] P:[phone] P:[phone] Echocardiographic Report Patient Name: AMENA MURILLO : [...] Procedure Note Caleb Quiles MD - 09/03/2024 [facility] Medical Group Cardiology [address] [facility] [address], [place] [address] [address], [place] [address] P:[phone] P:[phone] Echocardiographic Report Patient Name: AMENA MURILLO : [...] Final Result from Last 3 Months Insurance [facility] Care Teams Pack Press Operator Relationship Specialty Start Date End Date Boris Bhatia MD PCP - General Internal Medicine 06/18/21
--- OUTSIDE RECORDS SUMMARY | 2024-11-13 10:33 | XMS_ITS | Patient Health Record ---
Author Organization [facility] [employer] [facility] Address [address] [place] [address] Care Team Providers Care Computer Numerical Control Machinist Name Role Phone Toney AQUINO, [facility] Primary Care Provider Unavaila Shreya Coppola Unavailable [phone] Sariah Maravilla Unavailable [phone] Allergies No Known Allergies Reason For Referral No Information Medications Medication SIG (Take, Route, Frequency, Duration) Notes Start Date End Date Status Sertraline HCl 100 MG 1 tablet Oral Once a day; Duration: 90 days 09/20/2024 Active Amoxicillin 500 MG Oral 09/08/2023 Active ARIPiprazole 2 MG 1 tablet Oral Once a day; Duration: 90 days no 90 day please, may be DCing next month Active Hydroquinone 4 % External 09/08/2023 Ac tive busPIRone HCl 15 MG TAKE 1 TABLET BY MOUTH THREE TIMES A DAY; Duration: 90 Active Tretinoin 0.025 % External 09/08/2023 A ctive Social History Tobacco Use: Social History Observation [...] Risk Notes Problem Mild recurrent major depression (03658843) Major depressive disorder, recurrent, mild (F33.0) 4 Active confirmed Problem Recurrent major depression in remission (01365158) Major depressive disorder, recurrent, in partial remission (F33.41) Active confirmed Problem Generalized anxiety disorder (02039806) Generalized anxiety disorder (F41.1) 4 Active confirmed Problem Chronic insomnia (503624198) Chronic insomnia (F51.04) Active confirmed Problem Recurrent major depression (15422244) MDD (recurrent major depressive disorder) in remission (F33.40) Active confirmed Problem Panic disorder (786686637) Panic attacks (F41.0) Active confirmed Vital Signs Heart Rate 65 /min 09/20/2024 Height-cm 170.18 cm 09/20/2024 Blood pressure diastolic 81 mm Hg 09/20/2024 Weight-kg 81.65 kg 09/20/2024 Height 67.00 in 09/20/2024 Blood pressure systolic 122 mm Hg 09/20/2024 Weight 180 lbs 09/20/2024 BMI 28.19 kg/m2 09/20/2024 Encounters Encounter Location Date Provider Diagnosis [facility] [employer] [place] [id number] [address] 11/20/2023 Sariah Maravilla Major depressive disorder, recurrent, mild F33.0 ; Generalized anxiety disorder F41.1 ; Chronic insomnia F51.04 ; Panic attacks F41.[address]9 [facility] [employer] [facility] [address] [facility] [address] [address] 01/22/2024 Sariah Maravilla Major depressive disorder, recurrent, mild F33.0 ; Generalized anxiety disorder F41.1 ; Chronic insomnia F51.04 ; Panic attacks F41.0 [address] Current drinker Z78.9 [facility] [employer] [place] [address] [facility] [address] [address] 04/22/2024 Shreya Antonio Major depressive disorder, recurrent, mild F33.0 ; Generalized anxiety disorder F41.1 ; Chronic insomnia F51.04 and Panic attacks F41.[address] [address] 07/22/2024 Shreya Antonio Encounter for screening for depression Z13.31 ; Major depressive disorder, recurrent, mild F33.0 ; Generalized anxiety disorder F41.1 ; Chronic insomnia F51.04 and Panic attacks F41.[address] [address] 08/26/2024 Shreya Antonio Major depressive disorder, recurrent, mild F33.0 ; Generalized anxiety disorder F41.1 ; Chronic insomnia F51.04 ; Encounter for screening for depression Z13.31 and Encounter for screening for cardiovascular disorders Z13.[address] [address] 09/20/2024 Shreya Antonio Generalized anxiety disorder F41.1 ; Major depressive disorder, recurrent, in partial remission F33.41 ; Panic attacks F41.0 ; Chronic insomnia F51.04 ; Encounter for screening for depression Z13.31 and Encounter for screening for cardiovascular disorders Z13.[address] [address] 10/25/2024 Shreya Antonio Generalized anxiety disorder F41.1 ; MDD (recurrent major depressive disorder) in remission F33.40 ; Chronic insomnia F51.04 ; Panic attacks F41.0 and Negative depression screening Z13.[address] [address] 05/14/2024 Shreya Antonio [address] [address] 05/14/2024 Shreya Antonio Assessments Encounter Date Diagnosis (ICD Code) Assessment Notes Treatment Notes Treatment Clinical Notes Section Notes 11/20/2023 Major depressive disorder, recurrent, mild (ICD-10 [...] 08/26/2024 Generalized anxiety disorder (ICD-10 - F41.1) 09/20/2024 Major depressive disorder, recurrent, in partial remission (ICD-10 - F33.41) 09/20/2024 Generalized anxiety disorder (ICD-10 - F41.1) 10/25/2024 Generalized anxiety disorder (ICD-10 - F41.1) 10/25/2024 MDD (recurrent major depressive disorder) in remission (ICD-10 - F33.40) 10/25/2024 Chronic insomnia (ICD-10 - F51.04) 09/20/2024 Panic attacks (ICD-10 - F41.0) 08/26/2024 Chronic insomnia (ICD-10 - F51.04) 07/22/2024 [...] and the loss of her brother on [place] 13 yrs ago. Feels she is coping [...] for screening for depression (ICD-10 - Z13.31) 10/25/2024 Panic attacks (ICD-10 - F41.0) 09/20/2024 Chronic insomnia (ICD-10 - F51.04) 09/20/2024 Encounter for screening for depression (ICD-10 [...] and the loss of her brother on [place] 13 yrs ago. Feels she is coping [...] screening for cardiovascular disorders (ICD-10 - Z13.6) 10/25/2024 Negative depression screening (ICD-10 - Z13.31) 11/20/2023 Other 08/26/2024 Other Amena Murillo, female, [...] transition to assess response and tolerability - Legal Officer on limiting alcohol intake due to potential interactions with antidepressants and exacerbation of depressive symptoms 09/20/2024 Other Amena Murillo presents with anxiety and depression, reporting [...] if sertraline proves effective at managing symptoms 10/25/2024 Alea Murillo, female, presents for follow-up of anxiety and medication management, reporting stable mood and manageable anxiety. Depression and Anxiety Assessment: Patient reports anxiety is about the same and manageable. No recent panic attacks. Sleep and appetite are good. Denies depression or suicidal thoughts. Recently switched from Prozac to sertraline, which the patient feels was a good change. Current dose is 100 mg, which appears to be effective. Patient's life stressors include busy work schedule and managing children's activities. Plan: Continue aripiprazole - Continue buspirone as needed - Continue sertraline 100 mg - Maintain current dose as patient reports good efficacy - Follow up in 3 months Abdominal Pain Assessment: Patient reports onset of severe abdominal pain 2 months ago, resulting in an ER visit. Initially diagnosed as gastritis. Liver enzymes were elevated but normalized within days. Patient is currently undergoing workup with GI, including ultrasounds and MRI. Possible etiology includes sludge in bile ducts post-cholecystect allen. Patient reports feeling fine between episodes and is maintaining a bland diet to prevent recurrence. Plan: - Continue follow-up with GI and PCP for ongoing workup - Patient to update psychiatrist on results of pending tests and any new diagnoses - Continue as-needed use of prescribed medication for abdominal pain Plan Of Treatment Next Appt Details Provider Name:Shreya loyaparviz, 01/24/2025 04:45:00 PM, [address] [facility], [facility] [address], [place], [address], Insurance Providers Payer Name Payer Address Payer Phone Subscriber Number Group Number Insured Name Patient Relationship to Insured Coverage Start Date Coverage End Date [employer] Pos [address] [place] [address] [id number] JESÚS OZUNA Spouse - patient is the spouse of the insured Medical (General) History Medical History History ICD Code Problems: Chronic insomnia Mild recurrent major depression Past Psychiatric History: Anxiety Disord er undefined Surgical History Surgery Date(Month/Year) Removal of gallbladder (10870) 6 Tonsilectomy/adenoids 08/26/2002 Any surgical history bladder sling 09/19 Hysterectomy (32108) 09/19/2022 Endometrial ablation (09568) 03/15/2016
--- OUTSIDE RECORDS SUMMARY | 2024-11-13 10:33 | XMS_ITS | Clinical Summary ---
Author Organization [facility] [employer] Address [address] [place] [address] Care Team Providers Care Barge Pilot Name Role Phone Unavailable Primary Care Provider Unavailabl e Source Comments [facility] [employer],non-owned Affiliates and Associated Physician Practices is amultiple site organization consisting of ambulatory clinics and hospital sitesin [place], [place], [place] and [place]. This disclosure is being madepursuant to the Care Everywhere program and may not contain all information available regarding this patient. Last updated 18.[facility] [employer] Allergies No known active allergies Medications * [...] documented US PNC with Dr. Ocampo at [place], Transferred by Dr. Simpson Blood type: A+/I/-/-, [...] on file Legal Sex Female 12:06 PM PIPE CUTTER Gender Identity Not on file Sexual Orientation [...] 19+ 3-dose series) 07/06/2002 PAP SMEAR 07/06/2004 HPV VACCINE (1 - 3-dose SCDM series) 07/06/2010 COVID-19 VACCINE (1 - 2023-2 5 season) 2023 DEPRESSION SCREENING 05/01/2024 INFLUENZA VACCINE (#1) 2024 ZOSTER VACCINE (1 of 2) 07/06/2033 [...]
--- OUTSIDE RECORDS SUMMARY | 2024-11-13 10:33 | XMS_ITS | Clinical Summary ---
Author Organization [facility] Address [address] [place] [address] Phone Care Team Providers Care Senior Reactor Operator Name Role Phone Boris Bhatia MD Primary Care Provider [phone] Allergies No known active allergies Medications busPIRone [...] Description 09/03/2024 3:00 PM CDT Ancillary Procedure [facility] [address] [facility] [facility] [address] [place] [address] Cardiomegaly from Last 3 Months Social History Tobacco Use Types Packs/Day Years Used Date Smoking Tobacco: Never Assessed Comments Unknown Sex and Gender Information Value Date Recorded Sex Assigned at Not on file Legal Sex Female 8:09 AM SUPERVISOR BOAT OUTFITTING Gender Identity Female 06/18/2021 11:42 AM SUPERVISOR BOAT OUTFITTING Sexual Orientation Not on file Obstetrics History Last Filed Vital Signs Vital Sign Reading Time Taken Comments Blood Pressure 132/84 04/20/2024 2:18 PM SUPERVISOR BOAT OUTFITTING Pulse 76 04/20/2024 2:18 PM SUPERVISOR BOAT OUTFITTING Temperature 37 C (98.6 F) 04/20/2024 2:18 PM SUPERVISOR BOAT OUTFITTING Respiratory Rate 18 04/20/2024 2:18 PM SUPERVISOR BOAT OUTFITTING Oxygen Saturation 99% 04/20/2024 2:18 PM SUPERVISOR BOAT OUTFITTING Inhaled Oxygen Concentration - - Weight 83 kg (183 lb) 04/20/2024 2:18 PM SUPERVISOR BOAT OUTFITTING Height 170.2 cm (5' 7) 04/20/2024 2:18 PM SUPERVISOR BOAT OUTFITTING Body Mass Index 28.66 04/20/2024 2:18 PM SUPERVISOR BOAT OUTFITTING Plan of Treatment Health Maintenance Due Date [...] PM CDT Narrative 09/03/2024 4:40 PM CDT [facility] Cardiology [address], [place] [address] [address] [facility] [address], [place] [address] P:[phone] P:[phone] Echocardiographic Report Patient Name: AMENA MURILLO : 1985 Study Date: 09/03/2024 12:53:29 PM Gender: F Tech: [facility] Provider: BORIS BHATIA Height(Cm): 170 BSA: [...] FINDINGS: Interpretation Site: Exam was interpreted at [facility]. Left Ventricle: Normal left ventricular systolic [...] Procedure Note Caleb Quiles MD - 09/03/2024 [facility] Cardiology [address], [place] [address] [address] [facility] [address] [address] P:[phone] P:[phone] Echocardiographic Report Patient Name: AMENA MURILLO : [...] FINDINGS: Interpretation Site: Exam was interpreted at [facility]. Left Ventricle: Normal left ventricular systolic [...] Final Result from Last 3 Months [facility] Care Teams Senior Reactor Operator Relationship Specialty Start Date End Date Boris Bhatia MD PCP - General Internal Medicine 06/18/21
[2024-11-13 11:18] LABS: Hematocrit 37.9 % (37.0-47.0); Hemoglobin 12.1 g/dL (12.0-15.0); Mean Corpuscular HGB Conc 31.9 g/dl (32-36); Mean Corpuscular Hemoglobin 28.6 pg (26-34); Mean Corpuscular Volume 89.6 fl (80-100); Platelet Count Result 220 k/mm3 (150-375); Red Blood Count 4.23 M/mm3 (4.2-5.4); White Blood Count 8.2 K/mm3 (4.5-10.0)
[2024-11-13 11:29] LABS: Alanine Aminotransferase 36 U/L (6-35); Albumin Level 4.1 g/dL (3.5-5.1); Alkaline Phosphatase 76 U/L (38-126); Amylase 73 U/L (30-110); Anion Gap 7 mmol/L (4-12); Aspartate Amino Transferase 34 U/L (14-36); Bilirubin,Total 1.5 mg/dL (0.2-1.3); Blood Urea Nitrogen 10 mg/dL (7-17); Calcium 8.8 mg/dL (8.4-10.2); Carbon Dioxide 27 mmol/L (22-30); Chloride 103 mmol/L (98-107); Estimated Glomerular Filt Rate > 60; Glucose 87 mg/dL (65-110); Lipase 28 U/L (23-300); Potassium 3.7 mmol/L (3.4-5.0); Sodium 137 mmol/L (137-145); Total Protein 6.5 g/dL (6.3-8.2)
== END 2024-11-13 10:19 | disposition home or self-care (01) ==
LOC: ANHLAB 10:20
PROVIDERS: PCP Internal Medicine; Visit Provider Nurse Practitioner
DX: R10.13 Epigastric pain (principal)
CPT/HCPCS: 36415; 80053; 82150; 83690; 85027

== ENCOUNTER 2025-01-06 16:51 | Outpatient (CLI) | payer OTHER, SELFPAY ==
--- OUTSIDE RECORDS SUMMARY | 2025-01-06 16:53 | XMS_ITS | Clinical Summary ---
Author Organization [facility] Address [address] [place] [address] Phone Care Team Providers Care Shade Hanger Name Role Phone Boris Ziegler MD Primary Care Provider [phone] Allergies No known active allergies Medications busPIRone [...] on file Legal Sex Female 8:09 AM SECURITIES AND REAL ESTATE DIRECTOR Gender Identity Female 06/18/2021 11:42 AM SECURITIES AND REAL ESTATE DIRECTOR Sexual Orientation Not on file Obstetrics History Last Filed Vital Signs Vital Sign Reading Time Taken Comments Blood Pressure 132/84 04/20/2024 2:18 PM SECURITIES AND REAL ESTATE DIRECTOR Pulse 76 04/20/2024 2:18 PM SECURITIES AND REAL ESTATE DIRECTOR Temperature 37 C (98.6 F) 04/20/2024 2:18 PM SECURITIES AND REAL ESTATE DIRECTOR Respiratory Rate 18 04/20/2024 2:18 PM SECURITIES AND REAL ESTATE DIRECTOR Oxygen Saturation 99% 04/20/2024 2:18 PM SECURITIES AND REAL ESTATE DIRECTOR Inhaled Oxygen Concentration - - Weight 83 kg (183 lb) 04/20/2024 2:18 PM SECURITIES AND REAL ESTATE DIRECTOR Height 170.2 cm (5' 7) 04/20/2024 2:18 PM SECURITIES AND REAL ESTATE DIRECTOR Body Mass Index 28.66 04/20/2024 2:18 PM SECURITIES AND REAL ESTATE DIRECTOR Plan of Treatment Health Maintenance Due Date Last Done Comments Breast Cancer Screening-Mammogram 1985 Cervical Cancer Screening 1985 Depression Screening 1985 Hepatitis C Screening 1985 Varicella Vaccines (1 of 2 - 13+ 2-dose series) 07/06/1996 Hepatitis B Screening 07/06/2001 Regular Well Visit/Exam 18-64 07/06/2001 HPV Vaccines (1 - 3-dose SCD M series) 07/06/2010 Covid-19 Vaccine (4 - 2023-2 5 season) 2023 03/20/2021, 05/25/2020, 04/27/2020 Influenza Vaccine (#1) 2024 , 02/09/2023, 01/30/2012 DTaP/Tdap/Td Vaccine (2 - Td or Tdap) 04/01/2025 04/01/2015 Pneumococcal vaccine <65 Aged Out No longer eligible based on patient's age to complete [place] [address] [facility] Care Teams Shade Hanger Relationship Specialty Start Date End Date Boris Ziegler MD PCP - General Internal Medicine 06/18/21
--- OUTSIDE RECORDS SUMMARY | 2025-01-06 16:53 | XMS_ITS | Clinical Summary ---
Author Organization [facility] Address [address] [place] [address] Care Team Providers Care Finance Executive Name Role Phone Cole Ziegler MD Primary Care Provider [phone] Allergies No known active allergies Medications busPIRone [...] Noted Date Diagnosed Date Opioid overdose ([facility]) 03/23/2023 Social History Tobacco Use Types Packs/Day Years Used Date Smoking Tobacco: Never Smokeless Tobacco: Never Tobacco Cessation:Counseling Given: Not Answered Alcohol Use Standard Drinks/Week Comments Yes 0 (1 standard drink = 0.6 oz pur e alcohol) Drinks beer everyday. Comments Unknown Sex and Gender Information Value Date Recorded Sex Assigned at Not on file Legal Sex Female 5:00 AM NATIONAL EXPANSION RECRUITER Gender Identity Not on file Sexual Orientation Not on file Last Filed Vital Signs Vital Sign Reading Time Taken Comments Blood Pressure 113/73 03/25/2023 7:41 AM NATIONAL EXPANSION RECRUITER Pulse 62 03/25/2023 7:41 AM NATIONAL EXPANSION RECRUITER Temperature 36.5 C (97.7 F) 03/25/2023 7:41 AM NATIONAL EXPANSION RECRUITER Respiratory Rate 20 03/25/2023 7:41 AM NATIONAL EXPANSION RECRUITER Oxygen Saturation 100% 03/25/2023 7:41 AM NATIONAL EXPANSION RECRUITER Inhaled Oxygen Concentration - - Weight 76.5 kg (168 lb 10.4 oz) 03/25/2023 5:00 AM NATIONAL EXPANSION RECRUITER Height 170.2 cm (5' 7) 03/23/2023 10:0 0 AM NATIONAL EXPANSION RECRUITER Body Mass Index 26.41 03/23/2023 10:00 AM NATIONAL EXPANSION RECRUITER Plan of Treatment Health Maintenance Due Date Last Done Comments Annual Physical 07/06/1986 Hepatitis C 07/06/2001 Hepatitis B Vaccines (1 of 3 - 19+ 3-dose series) 07/06/2002 HPV Vaccines (1 - 3-dose SCD M series) 07/06/2010 Mammogram Screening 2023 COVID-19 Vaccine (4 - 2024-2 6 season) 2024 03/20/2021, 05/25/2020, 04/27/2020 DTaP, Tdap and Td Vaccines ( 2 - Td or Tdap) 04/01/2025 04/01/2015 Meningococcal B Vaccine Aged Out No l [...] 10:01 AM 03/25/2023 3:36 PM Care Teams Finance Executive Relationship Specialty Start Date End Date Cole Ziegler MD [address] [place] [address] PCP - General INTERNAL MEDICINE 03/01/23
--- OUTSIDE RECORDS SUMMARY | 2025-01-06 16:53 | XMS_ITS | Clinical Summary ---
Author Organization [facility] [employer] Address [address] [place] [address] Care Team Providers Care Supervisor Incising Name Role Phone Unavailable Primary Care Provider Unavailabl e Source Comments [facility] [employer]non-owned Affiliates and Associated Physician Practices is amultiple site organization consisting of ambulatory clinics and hospital sitesin [place], [place], [place] and [place]. This disclosure is being madepursuant to the Care Everywhere program and may not contain all information available regarding this patient. Last updated 18.[facility] [employer] Allergies No known active allergies Medications * [...] documented US PNC with Dr. Ocampo at [place], Transferred by Dr. Simpson Blood type: A+/I/-/-, [...] on file Legal Sex Female 12:06 PM DE IONIZER OPERATOR Gender Identity Not on file Sexual Orientation [...] VACCINE (1 - 3-dose SCDM series) 07/06/2010 DEPRESSION SCREENING 05/01/2024 COVID-19 VACCINE (1 - 2023-2 5 season) 2024 INFLUENZA VACCINE (#1) 2024 ZOSTER VACCINE (1 [...]
[2025-01-06 17:33] LABS: Alanine Aminotransferase 26 U/L (6-35); Albumin Level 4.6 g/dL (3.5-5.1); Alkaline Phosphatase 78 U/L (38-126); Aspartate Amino Transferase 29 U/L (14-36); Bilirubin,Total 1.4 mg/dL (0.2-1.3); Total Protein 7.4 g/dL (6.3-8.2)
[2025-01-06 17:48] LABS: Immunoglobulin G 769 mg/dL (700-1600)
== END 2025-01-06 16:52 | disposition home or self-care (01) ==
LOC: ANHLAB 16:51
PROVIDERS: PCP Internal Medicine; Visit Provider Nurse Practitioner
DX: R17 Unspecified jaundice (principal); R74.8 Abnormal levels of other serum enzymes
CPT/HCPCS: 36415; 80076; 82784

== ENCOUNTER 2025-04-14 07:29 | Outpatient (CLI) | payer OTHER, SELFPAY ==
--- NOTE | ~2025-04-14 | MM_ITS ---
EXAMINATION: MM screening janice BI w shaunna HISTORY: Screening TECHNIQUE: Craniocaudal and mediolateral oblique 3-D tomosynthesis images were obtained and synthetic 2-D images were generated. CAD analysis was submitted and interpreted. COMPARISON: 08/08/23 BREAST PARENCHYMAL COMPOSITION: Dense: The breasts are heterogeneously dense, which may obscure small masses. FINDINGS: There is no evidence of suspicious mass, calcification, or architectural distortion to suggest malignancy in either breast. IMPRESSION: 1. No mammographic evidence of malignancy. 2. Recommend routine screening mammography in one year. BI-RADS Category 1: Negative Reviewed, dictated and finalized at location B. FIC REPORTER
--- OUTSIDE RECORDS SUMMARY | 2025-04-14 07:32 | XMS_ITS | Clinical Summary ---
Author Organization [facility] [employer] Address [address] [facility] [address] Care Team Providers Care Solid Tire Finisher Name Role Phone Unavailable Primary Care Provider Unavailabl e Source Comments [facility] [employer],non-owned Affiliates and Associated Physician Practices is amultiple site organization consisting of ambulatory clinics and hospital sitesin [place], [place], [place] and [place]. This disclosure is being madepursuant to the Care Everywhere program and may not contain all information available regarding this patient. Last updated 18.[facility] [employer] Allergies No known active allergies Medications * [...] documented US PNC with Dr. Ocampo at [place], Transferred by Dr. Simpson Blood type: A+/I/-/-, [...] on file Legal Sex Female 12:06 PM E D TECH Gender Identity Not on file Sexual Orientation [...] DEPRESSION SCREENING 05/01/2024 COVID-19 VACCINE (1 - 2024-2 6 season) 2024 INFLUENZA VACCINE (#1) 2024 ZOSTER [...]
--- OUTSIDE RECORDS SUMMARY | 2025-04-14 07:32 | XMS_ITS | Clinical Summary ---
Author Organization [facility] Address [address] [place] [address] Care Team Providers Care Bun Panner Name Role Phone Cole Ziegler MD Primary Care Provider [phone] Allergies No known active allergies Medications busPIRone [...] Problem Noted Date Diagnosed Date Opioid overdose 03/23/2023 Social History Tobacco Use Types Packs/Day Years Used Date Smoking Tobacco: Never Smokeless Tobacco: Never Tobacco Cessation:Counseling Given: Not Answered Alcohol Use Standard Drinks/Week Comments Yes 0 (1 standard drink = 0.6 oz pur e alcohol) Drinks beer everyday. Comments Unknown Sex and Gender Information Value Date Recorded Sex Assigned at Not on file Legal Sex Female 5:00 AM FLATCAR WHACKER Gender Identity Not on file Sexual Orientation Not on file Last Filed Vital Signs Vital Sign Reading Time Taken Comments Blood Pressure 113/73 03/25/2023 7:41 AM FLATCAR WHACKER Pulse 62 03/25/2023 7:41 AM FLATCAR WHACKER Temperature 36.5 C (97.7 F) 03/25/2023 7:41 AM FLATCAR WHACKER Respiratory Rate 20 03/25/2023 7:41 AM FLATCAR WHACKER Oxygen Saturation 100% 03/25/2023 7:41 AM FLATCAR WHACKER Inhaled Oxygen Concentration - - Weight 76.5 kg (168 lb 10.4 oz) 03/25/2023 5:00 AM FLATCAR WHACKER Height 170.2 cm (5' 7) 03/23/2023 10:0 0 AM FLATCAR WHACKER Body Mass Index 26.41 03/23/2023 10:00 AM FLATCAR WHACKER Plan of Treatment Health Maintenance Due Date Last Done Comments Annual Physical 07/06/1986 Hepatitis C 07/06/2001 Hepatitis B Vaccines (1 of 3 - 19+ 3-dose series) 07/06/2002 HPV Vaccines (1 - 3-dose SCD M series) 07/06/2010 Mammogram Screening 2023 COVID-19 Vaccine (4 - 2024-2 6 season) 2024 03/20/2021, 05/25/2020, 04/27/2020 Influenza Adult (#1) 2025 02/23/2022, 01/30/2012 DTaP, Tdap and Td Vaccines ( 2 - Td or Tdap) 04/01/2025 04/01/2015 Hepatitis A Vaccines Aged Out No long er eligible based [...] 10:01 AM 03/25/2023 3:36 PM Care Teams Bun Panner Relationship Specialty Start Date End Date Cole Ziegler MD [address] [place] [address] PCP - General INTERNAL MEDICINE 03/01/23
== END 2025-04-14 07:30 | disposition home or self-care (01) ==
PROVIDERS: PCP Internal Medicine; Visit Provider Obstetrics & Gynecology
DX: Z12.31 Encounter for screening mammogram for malignant neoplasm of breast (principal)
CPT/HCPCS: 77063; 77067